=== PATIENT | female | born 1945 | race Caucasian/White ===

== ENCOUNTER 2017-01-22 19:09 | Emergency (ER) | payer MEDICARE, BC ==
[2017-01-22 19:35] VITALS: BP 166/68
--- NOTE | 2017-01-22 19:53 | EDM.PDOC ---
ED HPI GENERAL MEDICAL PROBLEM - General Chief Complaint: General Stated Complaint: CHEST PAIN Time Seen by Provider: 01/22/17 19:20 Source of Information: Reports: Patient History Limitations: Reports: No limitations - History of Present Illness INITIAL COMMENTS - FREE TEXT/NARRATIVE: According to patient she has been having chest pain for past 2 days, pain is constant and all over the chest and back. No worsening of pain with exertion. No radiation of pain to the jaws or neck. No shortness of breath with exertion. No sweating. No nausea or vomiting. Pt does have fibromyalgia and it flares up when the weather gets cold. Hurts to take deep breath. No cough, fever or chills.All her joints hurt. Pt has had stent placement 13 years ago and hence was brought in by her to have her checked. Pt appears comfortable. Onset Date: 01/20/17 Duration: Constant. No: Getting worse - Related Data Allergies Allergy/AdvReac Type Severity Reaction Status Date / Time SHENG Inhibitors Allergy Difficulty Verified 09/21/15 14:38 Breathing Latex, Natural Rubber Allergy Blisters Verified 08/23/15 10:45 Home Meds: Home Meds Gabapentin [Gabapentin] 300 mg PO TID 12/21/14 [History] Levothyroxine [Levothyroxine] 175 mcg PO DAILY 12/21/14 [History] Omeprazole [Omeprazole] 20 mg PO DAILY 12/21/14 [History] Simvastatin [Simvastatin] 40 mg PO DAILY 12/21/14 [History] fentaNYL [Fentanyl] 25 mcg TRDERM WEEKLY PRN 12/21/14 [History] Acetaminophen/HYDROcodone [[place] 325-5 MG] 1 tab PO QID PRN 01/22/17 [History] Cyclobenzaprine [Flexeril] 10 mg PO DAILY 01/22/17 [History] Diltiazem HCl [Taztia Xt] 360 mg PO DAILY 01/22/17 [History] Furosemide 20 mg PO DAILY 01/22/17 [History] Losartan [Cozaar] 50 mg PO DAILY 01/22/17 [History] Venlafaxine [Effexor XR] 75 mg PO DAILY 01/22/17 [History] Social & Family History - Tobacco Use Smoking Status *Q: Former Smoker Years of Tobacco use: 15 - Alcohol Use Days Per Week of Alcohol Use: 0 - Recreational Drug Use Recreational Drug Use: No ED ROS GENERAL - Review of Systems Review Of Systems: See Below Constitutional: Denies: fever, chills, fatigue, night sweats, diaphoresis HEENT: Denies: Ear discharge, Ear pain, Rhinitis, Throat pain Respiratory: Denies: Shortness of Breath, Pleuritic Chest Pain, Cough, Sputum Cardiovascular: Reports: Chest pain. Denies: Dyspnea on exertion, Lightheadedness Endocrine: Denies: fatigue GI/Abdominal: Denies: Abdominal pain, Nausea, Vomiting Musculoskeletal: Reports: back pain. Denies: shoulder pain, joint pain, joint swelling Skin: Denies: pruritis, rash Neurological: Denies: Confusion, Dizziness, Headache, Numbness, Paresthesia, Seizure, Tingling ED EXAM, GENERAL - Physical Exam Exam: See Below Exam Limited By: No limitations General Appearance: alert, WD/WN, no apparent distress, other (very comfortable in the exam room.) Eye Exam: bilateral eye: EOMI, PERRL Ears: normal external exam, normal canal, hearing grossly normal, normal TMs Ear Exam: bilateral ear: auricle normal, canal normal, TM normal Nose: normal inspection, normal mucosa, no blood Throat/Mouth: Normal inspection, Normal lips, Normal teeth, Normal gums, Normal oropharynx, Normal voice, No airway compromise Head: atraumatic, normocephalic Neck: normal inspection, supple, non-tender, full range of motion Respiratory/Chest: no respiratory distress, lungs clear, normal breath sounds, no accessory muscle use, other (tender all over the chest wall and upper back to palpation.) Cardiovascular: normal peripheral pulses, regular rate, rhythm, no edema, no gallop, no JVD, no murmur, no rub Peripheral Pulses: 2+: carotid (L), carotid (R), radial (R) GI/Abdominal: normal bowel sounds, soft, non tender, no organomegaly, no distention, no abnormal bruit, no mass Extremities: normal inspection, normal range of motion, non-tender, normal capillary refill, no pedal edema Neurological: alert EKG INTERPRETATION EKG Date: 01/22/17 Rate (beats/min): 62 [place]: normal P-wave: present QRS: normal ST-T: normal QT: normal Course - Vital Signs Text/Narrative:: Pt's EKG is in normal sinus rhythm. Heart rate and vitals are stable. Pt has elicitable tenderness all over the chest cage. She has flare up of her fibromyaglia. Pt appears very comfortable in the exam room.She does not have any typical signs or symptoms of acute cardiac injury. Pt and her reassured. advised to keep herself warm. return to emergency room , if she develops chest pain with exertion, or asso with sweating, shortness of breath, nausea , vomiting, epigastric pain or radiation to neck or jaw. Last Recorded V/S: Last Vital Signs Temp 98.3 F 01/22/17 19:33 Pulse 63 01/22/17 19:33 Resp 12 01/22/17 19:33 BP 166/68 H 01/22/17 19:33 Pulse Ox 100 01/22/17 19:33 - Orders/Labs/Meds Orders: Active Orders 24 hr Category Date Time Status EKG Documentation Completion [RC] ASDIRECTED Care 01/22/17 19:47 Ordered EKG 12 Lead [EK] Routine Ther 01/22/17 19:47 Ordered Departure - Departure Time of Disposition: 19:35 Disposition: Home, Self-Care 01 Condition: fair Clinical Impression: Non-cardiac chest pain Instructions: Arthritis Referrals: PCP,None [Primary Care Provider] - Forms: ED Department Discharge Additional Instructions: Take medications for Fibromyalgia as prescribed. Keep self warm. - Problem List & Annotations (1) Non-cardiac chest pain SNOMED Code(s): 607624602 Code(s): R07.89 - OTHER CHEST PAIN Status: Acute Current Visit: Yes - Problem List Review Problem List Initiated/Reviewed/Updated: Yes - My Orders Last 24 Hours: My Active Orders 01/22/17 19:47 EKG Documentation Completion [RC] ASDIRECTED EKG 12 Lead [EK] Routine - Assessment/Plan Last 24 Hours: My Active Orders 01/22/17 19:47 EKG Documentation Completion [RC] ASDIRECTED EKG 12 Lead [EK] Routine Assessment:: Non-cardiac chest pain Plan: Pt's EKG is in normal sinus rhythm. Heart rate and vitals are stable. Pt has elicitable tenderness all over the chest cage. She has flare up of her fibromyaglia. Pt appears very comfortable in the exam room.She does not have any typical signs or symptoms of acute cardiac injury. Pt and her reassured. advised to keep herself warm. return to emergency room , if she develops chest pain with exertion, or asso with sweating, shortness of breath, nausea , vomiting, epigastric pain or radiation to neck or jaw.
== END 2017-01-22 19:45 | disposition home or self-care (01) ==
LOC: LB.ED 19:09
DX: R07.89 Other chest pain (principal); Z87.891 Personal history of nicotine dependence; Z79.899 Other long term (current) drug therapy; Z91.040 Latex allergy status; Z88.8 Allergy status to other drugs, medicaments and biological substances
CPT/HCPCS: 93005; 99283

== ENCOUNTER 2017-12-15 07:00 | Observation (INO) | payer MEDICARE, BC ==
[2017-12-15] MEDS ORDERED: Ondansetron 4 MG Tab.DIS ONE (07:51)
--- NOTE | 2017-12-15 08:28 | EDM.PDOC ---
ED HPI GENERAL MEDICAL PROBLEM - General Time Seen by Provider: 12/15/17 07:45 Source of Information: Reports: Patient History Limitations: Reports: No Limitations - History of Present Illness INITIAL COMMENTS - FREE TEXT/NARRATIVE: Pt has had right knee replacement done by Dr. Maradiaga on 12/09/17 and had uneventful recover. She was discharged home.Pt preferred to do her therapy at home. Apparently patient claims that she started to have loose stools on 12/11/17 , which has persisted. Stool are yellow and watery, asso with some cramping. She has had 6-7 loose stools yesterday. Claims she has noticed some mucus in the stool, but no blood. Apparently she was eating her breakfast today and felt nauseous and vomited and felt sick and hence called ambulance. She claims that she has a catch in her right upper back. No fever or chills. No abdominal bloating. Also c/o eye pain and feels like something is bothering her in the eye. No redness, tearing or visual disturbance. Pt's who has been the caregiver, claims that it is getting hard to take care of her at home by him. Onset Date: 12/11/17 Location: Reports: Abdomen Quality: Reports: Ache Severity: Mild Associated Symptoms: Denies: Confusion, Chest Pain, Cough, Diaphoresis, Fever/ Chills, Headaches, Rash, Seizure, Shortness of Breath, Syncope - Related Data Allergies Allergy/AdvReac Type Severity Reaction Status Date / Time SHENG Inhibitors Allergy Difficulty Verified 12/15/17 08:32 Breathing atorvastatin Allergy Cannot Verified 12/15/17 08:32 Remember Latex, Natural Rubber Allergy Blisters Verified 12/15/17 08:32 Home Meds: Home Meds Gabapentin [Gabapentin] 300 mg PO TID 12/21/14 [History] Levothyroxine [Levothyroxine] 150 mcg PO DAILY 12/21/14 [History] Omeprazole [Omeprazole] 20 mg PO DAILY 12/21/14 [History] Simvastatin [Simvastatin] 40 mg PO DAILY 12/21/14 [History] fentaNYL [Fentanyl] 25 mcg TRDERM WEEKLY PRN 12/21/14 [History] Diltiazem HCl [Taztia Xt] 360 mg PO DAILY 01/22/17 [History] Losartan [Cozaar] 50 mg PO DAILY 04/26/17 [History] Venlafaxine [Effexor XR] 150 mg PO DAILY 01/22/17 [History] Acetaminophen [Tylenol] 650 mg PO Q4H PRN 12/15/17 [History] Sennosides/Docusate Sodium [Senna Plus Tablet] 1 - 2 tab PO BID 12/15/17 [ History] Warfarin [Coumadin] 5 mg PO DAILY 12/15/17 [History] hydrOXYzine HCl [hydrOXYzine] 25 - 50 mg PO Q6H PRN 12/15/17 [History] oxyCODONE 5 - 10 mg PO Q4H PRN 12/15/17 [History] traMADol HCl [Tramadol HCl] 50 - 100 mg PO Q6H PRN 12/15/17 [History] Social & Family History - Tobacco Use Smoking Status *Q: Former Smoker Years of Tobacco use: 15 - Alcohol Use Days Per Week of Alcohol Use: 0 - Recreational Drug Use Recreational Drug Use: No ED ROS GENERAL - Review of Systems Review Of Systems: See Below Constitutional: Denies: Fever, Chills, Weakness, Night Sweats, Diaphoresis, Decreased Appetite HEENT: Denies: Eye Discharge, Rhinitis, Sinus Problem, Throat Pain, Throat Swelling, Vision Change Respiratory: Denies: Shortness of Breath, Wheezing, Pleuritic Chest Pain, Cough , Sputum Cardiovascular: Denies: Chest Pain, Lightheadedness GI/Abdominal: Reports: Diarrhea, Nausea, Vomiting. Denies: Abdominal Pain, Constipation, Decreased Appetite, Distension, Flatus, Hematemesis, Hematochezia : Denies: Dysuria, Flank Pain, Frequency Musculoskeletal: Denies: Joint Pain, Joint Swelling Skin: Denies: Bruising, Pruritis, Rash Neurological: Denies: Confusion, Dizziness, Headache, Seizure, Syncope, Tingling Psychiatric: Denies: Agitation, Anxiety, Confusion ED EXAM, GENERAL - Physical Exam Exam: See Below Exam Limited By: Physical Impairment (due to recent left knee replacement) General Appearance: Alert, WD/WN, No Apparent Distress Eye Exam: Bilateral Eye: EOMI, PERRL Ears: Normal External Exam, Normal Canal, Hearing Grossly Normal, Normal TMs Ear Exam: Bilateral Ear: Auricle Normal, Canal Normal, TM normal Nose: Normal Inspection, Normal Mucosa, No Blood Throat/Mouth: Normal Inspection, Normal Lips, Normal Teeth, Normal Gums, Normal Oropharynx, Normal Voice, No Airway Compromise Head: Atraumatic, Normocephalic Neck: Normal Inspection, Supple, Non-Tender, Full Range of Motion Respiratory/Chest: No Respiratory Distress, Lungs Clear, Normal Breath Sounds, No Accessory Muscle Use, Chest Non-Tender Cardiovascular: Normal Peripheral Pulses, Regular Rate, Rhythm, No Edema, No Gallop, No JVD, No Murmur, No Rub GI/Abdominal: Normal Bowel Sounds, Soft, Non-Tender, No Organomegaly, No Distention, No Abnormal Bruit, No Mass Back Exam: Normal Inspection, Full Range of Motion, NT Extremities: No Pedal Edema, Normal Capillary Refill, Other (Left knee: there is a clean dressing over the anterior aspect of right kneee. No erythema or excessive swelling noted. minimal tenderness around the surgical site.) Course - Vital Signs Text/Narrative:: 72 year old female present with watery diarrhea, which started after recent surgical procedure and was inpatient. Her hydration appears appropriate. as she had episode of vomiting at home, she did received Zofran ODT 4mg. Pt's CBC and BMP appear normal. Her INR is 1.5 , have increased her coumadin to 7.5 mg daily for next 3 day and will repeat INR on 12/18/17. I have advised patient to give us sample of stool for C-diff. Pt is s/p left knee replacement and her cannot take care of her at home. Will have OT and PT evaluate patient. Last Recorded V/S: Last Vital Signs Temp 98 F 12/15/17 12:00 Pulse 87 12/15/17 12:00 Resp 14 12/15/17 12:00 BP 115/52 L 12/15/17 12:00 Pulse Ox 94 L 12/15/17 12:00 - Orders/Labs/Meds Orders: Active Orders 24 hr Category Date Time Status CLOSTRIDIUM DIFFICILE BY PCR [RM] Stat Lab 12/15/17 08:22 Ordered Medication Orders Acetaminophen (Tylenol Arthritis Pain) 650 mg PO TID PRN PRN Reason: ARTHRITIS Docusate Sodium (Dok) 250 mg PO BID [facility] Fentanyl (Duragesic) 25 mcg TRDERM Q72H PRN PRN Reason: Other Gabapentin (Neurontin) 300 mg PO TID [facility] Hydroxyzine HCl (Atarax) 25 mg PO Q6H PRN PRN Reason: moderate pain Levothyroxine Sodium (Levothyroxine) 150 mcg PO ACBREAKFAST [facility] Losartan Potassium (Cozaar) 50 mg PO DAILY [facility] Non-Formulary Medication (Diltiazem Hcl [Taztia Xt]) 360 mg PO DAILY [facility] Omeprazole (Omeprazole) 20 mg PO DAILY [facility] Ondansetron HCl (Zofran Odt) 4 mg PO Q8H PRN PRN Reason: Nausea Oxycodone HCl (Oxycodone) 5 mg PO Q4H PRN PRN Reason: Pain Simvastatin (Zocor) 40 mg PO BEDTIME [facility] Tramadol HCl (Ultram) 50 mg PO Q6H PRN PRN Reason: Pain Venlafaxine HCl (Effexor Xr) 150 mg PO DAILY [facility] Warfarin Sodium (Coumadin) 7.5 mg PO DAILY@1800 [facility] Stop: 12/17/17 23:59 Meds: Medications Generic Name Dose Route Start Last Admin Trade Name Freq PRN Reason Stop Dose Admin Acetaminophen 650 mg 12/15/17 14:43 Tylenol Arthritis Pain PO TID PRN ARTHRITIS Docusate Sodium 250 mg 12/15/17 20:00 Dok PO BID [facility] Fentanyl 25 mcg 12/15/17 08:38 Duragesic TRDERM Q72H PRN Other Gabapentin 300 mg 12/15/17 14:00 Neurontin PO TID [facility] Hydroxyzine HCl 25 mg 12/15/17 14:37 Atarax PO Q6H PRN moderate pain Levothyroxine Sodium 150 mcg 12/16/17 07:00 Levothyroxine PO ACBREAKFAST [facility] Losartan Potassium 50 mg 12/15/17 08:45 Cozaar PO DAILY [facility] Non-Formulary Medication 360 mg 12/15/17 08:45 Diltiazem Hcl [Taztia Xt] PO DAILY [facility] Omeprazole 20 mg 12/15/17 08:45 Omeprazole PO DAILY [facility] Ondansetron HCl 4 mg 12/15/17 08:37 Zofran Odt PO Q8H PRN Nausea Oxycodone HCl 5 mg 12/15/17 14:37 Oxycodone PO Q4H PRN Pain Simvastatin 40 mg 12/15/17 20:00 Zocor PO BEDTIME [facility] Tramadol HCl 50 mg 12/15/17 20:38 Ultram PO Q6H PRN Pain Venlafaxine HCl 150 mg 12/16/17 08:00 Effexor Xr PO DAILY [facility] Warfarin Sodium 7.5 mg 12/15/17 18:00 Coumadin PO 12/17/17 23:59 DAILY@1800 [facility] Discontinued Medications Generic Name Dose Route Start Last Admin Trade Name Freq PRN Reason Stop Dose Admin Hydroxyzine HCl 25 mg 12/15/17 08:38 Atarax PO Q6H PRN moderate pain Hydroxyzine HCl 25 - 50 mg 12/15/17 09:58 Atarax PO Q6H PRN moderate pain Ondansetron HCl Confirm 12/15/17 07:51 12/15/17 07:55 Zofran Odt Administered 12/15/17 07:52 4 mg Dose Administration 4 mg .ROUTE .STK-MED ONE Oxycodone HCl 5 - 10 mg 12/15/17 08:38 Oxycodone PO Q4H PRN Pain Oxycodone HCl 1 - 2 mg 12/15/17 14:32 Oxycodone PO Q4H PRN Pain Tramadol HCl 50 - 100 mg 12/15/17 08:38 Ultram PO Q6H PRN Pain Warfarin Sodium 5 mg 12/15/17 08:45 Coumadin PO DAILY [facility] Warfarin Sodium 2.5 - 5 mg 12/15/17 10:00 Coumadin PO ASDIRECTED [facility] Departure - Departure Time of Disposition: 08:00 Disposition: Refer to Observation Condition: Fair Clinical Impression: Gastroenteritis, S/P knee replacement - Discharge Information - Problem List & Annotations (1) Gastroenteritis SNOMED Code(s): 68483081 Code(s): K52.9 - NONINFECTIVE GASTROENTERITIS AND COLITIS, UNSPECIFIED Status: Acute Current Visit: Yes (2) S/P knee replacement SNOMED Code(s): 564792864 Code(s): Z96.659 - PRESENCE OF UNSPECIFIED ARTIFICIAL KNEE JOINT Status: Acute Current Visit: Yes - Problem List Review Problem List Initiated/Reviewed/Updated: Yes - My Orders Last 24 Hours: My Active Orders 12/15/17 08:22 CLOSTRIDIUM DIFFICILE BY PCR [RM] Stat - Assessment/Plan Last 24 Hours: My Active Orders 12/15/17 08:22 CLOSTRIDIUM DIFFICILE BY PCR [RM] Stat Assessment:: Gastroenteritis S/p left knee replacement Plan: 2 year old female present with watery diarrhea, which started after recent surgical procedure and was inpatient. Her hydration appears appropriate. as she had episode of vomiting at home, she did received Zofran ODT 4mg. Pt's CBC and BMP appear normal. Her INR is 1.5 , have increased her coumadin to 7.5 mg daily for next 3 day and will repeat INR on 12/18/17. I have advised patient to give us sample of stool for C-diff. Pt is s/p left knee replacement and her cannot take care of her at home. Will have OT and PT evaluate patient.
[2017-12-15] MEDS ORDERED: Ondansetron 4 MG Tab.DIS PO PRN (08:37)
[2017-12-15] MEDS ORDERED: hydrOXYzine HCl 25 MG Tab PO PRN ×2 (08:38→09:58)
[2017-12-15] MEDS ORDERED: fentaNYL 25 MCG/HR Transdermal Patch TRDERM PRN (08:38)
[2017-12-15] MEDS ORDERED: Acetaminophen 325 MG Tab PO PRN (08:38)
[2017-12-15] MEDS ORDERED: traMADol 50 MG Tab PO PRN (08:38)
[2017-12-15] MEDS ORDERED: oxyCODONE 5 MG Tab PO PRN ×2 (08:38→14:32)
[2017-12-15] MEDS ORDERED: Venlafaxine 75 MG Cap.ER PO SCH (08:45)
[2017-12-15] MEDS ORDERED: Warfarin 5 MG Tab PO SCH ×4 (08:45→18:00)
[2017-12-15] MEDS ORDERED: Acetaminophen 650 MG Tab.ER PO PRN (14:43)
[2017-12-15] MEDS: DILTIAZEM HCL 360 MG PO SCH (15:06)
[2017-12-15] MEDS: Losartan 50 MG Tab PO SCH (15:06)
[2017-12-15] MEDS: Omeprazole 20 MG Cap.CR PO SCH (15:07)
[2017-12-15] MEDS: Gabapentin 300 MG Cap PO SCH ×2 (15:08→19:35)
[2017-12-15] MEDS: traMADol 50 MG Tab PO PRN (15:10)
[2017-12-15] MEDS ORDERED: Warfarin 5 MG Tab ONE (17:34)
[2017-12-15] MEDS: Docusate Sodium 250 MG Cap PO SCH (19:34)
[2017-12-15] MEDS: oxyCODONE 5 MG Tab PO PRN ×2 (19:38→23:58)
[2017-12-15] MEDS: hydrOXYzine HCl 25 MG Tab PO PRN ×2 (19:39→23:59)
[2017-12-15] MEDS ORDERED: Simvastatin 40 MG Tab PO SCH (20:00)
[2017-12-16] MEDS ORDERED: Levothyroxine 150 MCG Tab PO SCH (07:00)
[2017-12-16] MEDS: Docusate Sodium 250 MG Cap PO SCH (07:56)
[2017-12-16] MEDS: DILTIAZEM HCL 360 MG PO SCH (07:56)
[2017-12-16] MEDS: Gabapentin 300 MG Cap PO SCH (07:56)
[2017-12-16] MEDS: Omeprazole 20 MG Cap.CR PO SCH (07:57)
[2017-12-16] MEDS: hydrOXYzine HCl 25 MG Tab PO PRN (07:57)
[2017-12-16] MEDS: traMADol 50 MG Tab PO PRN (07:58)
[2017-12-16] MEDS ORDERED: Simvastatin 40 MG Tab PO SCH (08:00)
[2017-12-16] MEDS ORDERED: Venlafaxine 150 MG Cap.ER PO SCH (08:00)
[2017-12-16 08:05] VITALS: BP 118/56
[2017-12-16] MEDS: Losartan 50 MG Tab PO SCH (08:05)
--- NOTE | 2017-12-16 10:01 | PCM.DCSUM1 ---
Discharge Summary - Hospital Course Free Text/Narrative:: Pt was admitted with diagnosis of gastroenteritis with possible hospital induced colitis. Her CBC and BMP were normal. Her electrolytes were stable. She was admitted to monitor her closely as she just has had left knee replacement and needs help with using the restroom frequently. Apparently patient has not had any bowel movements or diarrhea since admission. She has been feeding well and has not had any episodes of nausea or vomiting. Today, 12/16/17, she claims she feels fine, no abdominal cramping or discomfort. feeding well. Able to ambulate and weight bearing well on the left lower extremity. It does not appear like she has C-diff colitis, as she has not had anymore loose stools. Hence plan is to discharge patient back home. Pt does agree with the plan. Brief History: Pt was brought in by ambulance with c/o severe diarrhea and vomiting. Pt was admitted to control symptoms and further workup of her diarrhea. Kindly see H&P for details. - Discharge Data Discharge Date: 12/16/17 Discharge Disposition: Home, Self-Care 01 Condition: Good - Discharge Diagnosis/Problem(s) (1) Gastroenteritis SNOMED Code(s): 04694619 ICD Code: K52.9 - NONINFECTIVE GASTROENTERITIS AND COLITIS, UNSPECIFIED Status: Acute Current Visit: Yes (2) S/P knee replacement SNOMED Code(s): 391964316 ICD Code: Z96.659 - PRESENCE OF UNSPECIFIED ARTIFICIAL KNEE JOINT Status: Acute Current Visit: Yes - Patient Instructions Diet: Regular Diet as Tolerated Fluid Restriction: 1500 mL Activity: As Tolerated, Elevate Extremity, No Strenuous Activities Showering/Bathing: May Shower Notify Provider of: Fever, Nausea and/or Vomiting - Discharge Plan Home Medications: Home Meds Gabapentin 300 mg PO TID 12/21/14 [History] Levothyroxine 150 mcg PO DAILY 12/21/14 [History] Omeprazole 20 mg PO DAILY 12/21/14 [History] Simvastatin 40 mg PO DAILY 12/21/14 [History] fentaNYL [Fentanyl] 25 mcg TRDERM WEEKLY PRN 12/21/14 [History] Diltiazem HCl [Taztia Xt] 360 mg PO DAILY 01/22/17 [History] Losartan [Cozaar] 50 mg PO DAILY 01/22/17 [History] Venlafaxine [Effexor XR] 150 mg PO DAILY 01/22/17 [History] Acetaminophen [Tylenol] 650 mg PO Q4H PRN 12/15/17 [History] Sennosides/Docusate Sodium [Senna Plus Tablet] 1 - 2 tab PO BID 12/15/17 [ History] Warfarin [Coumadin] 5 mg PO DAILY 12/15/17 [History] hydrOXYzine HCl [hydrOXYzine] 25 - 50 mg PO Q6H PRN 12/15/17 [History] oxyCODONE 5 - 10 mg PO Q4H PRN 12/15/17 [History] traMADol HCl [Tramadol HCl] 50 - 100 mg PO Q6H PRN 12/15/17 [History] Acetaminophen [Tylenol Arthritis Pain] 650 mg PO TID PRN tab.er 12/16/17 [Rx] Docusate Sodium [DOK] 250 mg PO BID cap 12/16/17 [Rx] Levothyroxine 150 mcg PO ACBREAKFAST tablet 12/16/17 [Rx] Venlafaxine [Effexor XR] 150 mg PO DAILY cap.er 12/16/17 [Rx] Referrals: PCP,None [Primary Care Provider] - - Discharge Summary/Plan Comment DC Time >30 min.: Yes Discharge Summary/Plan Comment: Continue home exercise Coumadin 5mg daily and have INR checked at Coumadin clinic on 12/18/17 Followup with Orthopedics clinic on 12/23/17 - General Info Date of Service: 12/16/17 Functional Status: Reports: Tolerating Diet, Ambulating, Urinating. Denies: New Symptoms - Review of Systems General: Denies: Fever, Weakness, Fatigue HEENT: Denies: Headaches, Sinus Congestion Pulmonary: Denies: Shortness of Breath, Pleuritic Chest Pain, Cough, Sputum Cardiovascular: Denies: Chest Pain, Lightheadedness Gastrointestinal: Reports: Flatus. Denies: Abdominal Pain, Diarrhea, Hematochezia, Melena, Nausea, Vomiting Genitourinary: Denies: Dysuria, Frequency Musculoskeletal: Denies: Joint Pain, Joint Swelling Skin: Denies: Pruritis, Rash Neurological: Denies: Seizure, Syncope - Patient Data Vitals - Most Recent: Last Vital Signs Temp 97.8 F 12/16/17 00:00 Pulse 52 L 12/16/17 00:00 Resp 16 12/16/17 04:00 BP 118/56 L 12/16/17 08:05 Pulse Ox 96 12/16/17 00:00 Weight - Most Recent: 104.043 kg I&O - Last 24 hours: Intake & Output 12/15/17 12/16/17 12/16/17 22:59 06:59 14:59 Intake Total 475 500 Output Total 550 250 Balance -75 250 Lab Results - Last 24 hrs: Laboratory Results - last 24 hr 12/15/17 12/15/17 12/15/17 Range/Units 09:00 09:00 09:10 WBC 9.3 D (4.0-11.0) K/uL RBC 3.83 (3.80-5.80) M/uL Hgb 9.8 L (11.5-16.5) g/dL Hct 31.7 L (37.0-47.0) % MCV 83 (76-96) fL MCH 25.6 L (27.0-32.0) pg MCHC 30.9 L (31.0-35.0) g/dL RDW 13.7 (11.0-16.0) % Plt Count 306 (150-500) K/uL MPV 9.2 (6.0-10.0) fL Neut % (Auto) 73.9 H (45.0-70.0) % Lymph % (Auto) 15.9 L (20.0-40.0) % [place] % (Auto) 7.0 (3.0-10.0) % Eos % (Auto) 2.9 (1.0-5.0) % Baso % (Auto) 0.3 (0.0-0.5) % Neut # (Auto) 6.83 (2.00-7.50) K/uL Lymph # (Auto) 1.47 L (1.50-4.00) K/uL [place] # (Auto) 0.65 (0.20-0.80) K/uL Eos # (Auto) 0.27 (0.04-0.40) K/uL Baso # (Auto) 0.03 (0.02-0.10) K/uL PT 14.6 H (9.0-11.5) sec INR 1.5 (1.0-3.5) Sodium 142 (136-145) mmol/L Potassium 4.0 (3.5-5.1) mmol/L Chloride 105 (98-107) mmol/L Carbon Dioxide 28.6 (21.0-32.0) mmol/L Anion Gap 12.4 (5.0-15.0) mmol/L BUN 16 D (8-26) mg/dL Creatinine 1.24 H (0.55-1.02) mg/dL Est Cr Clr Drug Dosing TNP Estimated GFR (MDRD) 42 L (>60) MLS/MIN BUN/Creatinine Ratio 12.9 (6-25) Glucose 109 H (74-100) mg/dL Calcium 9.0 (8.5-10.1) mg/dL Med Orders - Current: Current Medications Acetaminophen (Tylenol Arthritis Pain) 650 mg PO TID PRN PRN Reason: ARTHRITIS Last Admin: 12/15/17 19:36 Dose: 650 mg Docusate Sodium (Dok) 250 mg PO BID [facility] Last Admin: 12/16/17 07:56 Dose: 250 mg Fentanyl (Duragesic) 25 mcg TRDERM Q72H PRN PRN Reason: Other Gabapentin (Neurontin) 300 mg PO TID [facility] Last Admin: 12/16/17 07:56 Dose: 300 mg Hydroxyzine HCl (Atarax) 25 mg PO Q6H PRN PRN Reason: moderate pain Last Admin: 12/16/17 07:57 Dose: 25 mg Levothyroxine Sodium (Levothyroxine) 150 mcg PO ACBREAKFAST [facility] Last Admin: 12/16/17 07:54 Dose: 150 mcg Losartan Potassium (Cozaar) 50 mg PO DAILY [facility] Last Admin: 12/16/17 08:05 Dose: 50 mg Non-Formulary Medication (Diltiazem Hcl [Taztia Xt]) 360 mg PO DAILY [facility] Last Admin: 12/16/17 07:56 Dose: 360 mg Omeprazole (Omeprazole) 20 mg PO DAILY [facility] Last Admin: 12/16/17 07:57 Dose: 20 mg Ondansetron HCl (Zofran Odt) 4 mg PO Q8H PRN PRN Reason: Nausea Oxycodone HCl (Oxycodone) 5 mg PO Q4H PRN PRN Reason: Pain Last Admin: 12/15/17 23:58 Dose: 5 mg Simvastatin (Zocor) 40 mg PO BEDTIME [facility] Last Admin: 12/15/17 19:35 Dose: 40 mg Tramadol HCl (Ultram) 50 mg PO Q6H PRN PRN Reason: Pain Last Admin: 12/16/17 07:58 Dose: 50 mg Venlafaxine HCl (Effexor Xr) 150 mg PO DAILY [facility] Last Admin: 12/16/17 07:56 Dose: 150 mg Warfarin Sodium (Coumadin) 7.5 mg PO DAILY@1800 [facility] Stop: 12/17/17 23:59 Last Admin: 12/15/17 17:36 Dose: 5 mg Discontinued Medications Hydroxyzine HCl (Atarax) 25 mg PO Q6H PRN PRN Reason: moderate pain Hydroxyzine HCl (Atarax) 25 - 50 mg PO Q6H PRN PRN Reason: moderate pain Ondansetron HCl (Zofran Odt) Confirm Administered Dose 4 mg .ROUTE .STK-MED ONE Stop: 12/15/17 07:52 Last Admin: 12/15/17 07:55 Dose: 4 mg Oxycodone HCl (Oxycodone) 5 - 10 mg PO Q4H PRN PRN Reason: Pain Oxycodone HCl (Oxycodone) 1 - 2 mg PO Q4H PRN PRN Reason: Pain Tramadol HCl (Ultram) 50 - 100 mg PO Q6H PRN PRN Reason: Pain Warfarin Sodium (Coumadin) 5 mg PO DAILY [facility] Warfarin Sodium (Coumadin) 2.5 - 5 mg PO ASDIRECTED [facility] Warfarin Sodium (Coumadin) Confirm Administered Dose 5 mg .ROUTE .STK-MED ONE Stop: 12/15/17 17:35 Last Admin: 12/15/17 17:35 Dose: Not Given - Exam General: Reports: Alert, Oriented HEENT: Reports: Pupils Equal, Pupils Reactive, EOMI, Mucous Membr. Moist/Otho Neck: Reports: Supple Lungs: Reports: Clear to Auscultation, Normal Respiratory Effort Cardiovascular: Reports: Regular Rate, Regular Rhythm GI/Abdominal Exam: Normal Bowel Sounds, Soft, Non-Tender, No Organomegaly, No Distention, No Abnormal Bruit, No Mass, Pelvis Stable Back Exam: Reports: Normal Inspection, Full Range of Motion Extremities: Non-Tender, Other (Left knee: there is clean dressing over the surgical site. No erythema or warmth felt.) Skin: Reports: Warm, Intact *Q Meaningful Use (DIS) - VTE *Q VTE Criteria *Q: - Stroke *Q Stroke Criteria *Q: - AMI *Q AMI Criteria *Q:
== END 2017-12-16 11:25 | disposition home or self-care (01) ==
LOC: LB.ED 07:00 → LB.MS 08:33
PROVIDERS: ADMIT Family Medicine; ATTEND Family Medicine
DX: K52.9 Noninfective gastroenteritis and colitis, unspecified (principal); Z96.659 Presence of unspecified artificial knee joint; Z79.01 Long term (current) use of anticoagulants; Z79.899 Other long term (current) drug therapy; Z88.8 Allergy status to other drugs, medicaments and biological substances; Z91.040 Latex allergy status; Z87.891 Personal history of nicotine dependence
CPT/HCPCS: 36415; 80048; 85025; 85610; 97110-GP; 97161-GP; 97165-GO; 97535-GO; 99217; 99220; 99284; A0425; A0429; A9270-GY

== ENCOUNTER 2021-08-18 12:23 | Emergency (ER) | payer MEDICARE, BC ==
[2021-08-18 12:31] VITALS: BP 179/83; PULSE 92
[2021-08-18] MEDS: Sodium Chloride 0.9% 1,000 ML IV ONE (13:20)
[2021-08-18] MEDS: Sodium Chloride 0.9% 500 ML IV ONE (14:00)
--- NOTE | 2021-08-18 15:55 | EDM.PDOC ---
ED HPI GENERAL MEDICAL PROBLEM - General Chief Complaint: Gastrointestinal Problem Stated Complaint: stomach discomfort Time Seen by Provider: 08/18/21 12:40 - History of Present Illness INITIAL COMMENTS - FREE TEXT/NARRATIVE: Pt is here with C/O not feeling good for 3 weeks. She started out with cold symptoms, now just feels fatigued. She has some heartburn at times. No coughing, nausea, SOB, vomiting or diarrhea. She has had no appetite. Her recently had Covid. She has been vaccinated and has had a booster for Covid. - Related Data Allergies Allergy/AdvReac Type Severity Reaction Status Date / Time SHENG Inhibitors Allergy Difficulty Verified 08/18/21 12:35 Breathing atorvastatin Allergy Cannot Verified 08/18/21 12:35 Remember Latex, Natural Rubber Allergy Blisters Verified 08/18/21 12:35 Home Meds: Home Meds Gabapentin 300 mg PO TID 12/21/14 [History] Omeprazole 20 mg PO DAILY 12/21/14 [History] Simvastatin 40 mg PO DAILY 12/21/14 [History] fentaNYL [Fentanyl] 25 mcg TRDERM WEEKLY PRN 12/21/14 [History] Losartan [Cozaar] 50 mg PO DAILY 01/22/17 [History] dilTIAZem HCL [Taztia Xt] 360 mg PO DAILY 01/22/17 [History] Sennosides/Docusate Sodium [Senna Plus Tablet] 1 - 2 tab PO BID 12/15/17 [History] Acetaminophen [Tylenol Arthritis Pain] 650 mg PO TID PRN tab.er 12/16/17 [Rx] Docusate Sodium [DOK] 250 mg PO BID cap 12/16/17 [Rx] Levothyroxine 150 mcg PO ACBREAKFAST tablet 12/16/17 [Rx] Venlafaxine [Effexor XR] 150 mg PO DAILY cap.er 12/16/17 [Rx] Past Medical History HEENT History: Reports: Impaired Vision Cardiovascular History: Reports: High Cholesterol, Hypertension Psychiatric History: Reports: Depression Hematologic History: Reports: Anemia - Infectious Disease History Infectious Disease History: Reports: Measles, Mumps, Rubella - Past Surgical History Musculoskeletal Surgical History: Reports: Knee Replacement Social & Family History - Family History Family Medical History: No Pertinent Family History - Tobacco Use Tobacco Use Status *Q: Former Tobacco User Used Tobacco, but Quit: Yes Month/Year Tobacco Last Used: 1972 Second Hand Smoke Exposure: No - Caffeine Use Caffeine Use: Reports: Soda - Recreational Drug Use Recreational Drug Use: No ED ROS GENERAL - Review of Systems Review Of Systems: Comprehensive ROS is negative, except as noted in HPI. Constitutional: Reports: Weakness, Fatigue, Decreased Appetite ED EXAM, GENERAL - Physical Exam Exam: See Below General Appearance: Other (She is lying quietly on the exam table.) Throat/Mouth: Other (mucous membranes are dry.) Course - Vital Signs Last Recorded V/S: Last Vital Signs Temp 99.3 F 08/18/21 12:23 Pulse 92 08/18/21 12:23 Resp 14 08/18/21 12:23 BP 179/83 H 08/18/21 12:23 Pulse Ox 92 L 08/18/21 12:23 - Orders/Labs/Meds Orders: Active Orders 24 hr Category Date Time Status Chest 1V Frontal [CR] Stat Exams 08/18/21 12:45 Taken UA W/MICROSCOPIC [URIN] Stat Lab 08/18/21 12:51 Ordered Isolation [COMM] Routine Oth 08/18/21 12:45 Active Labs: Laboratory Tests 08/18/21 08/18/21 08/18/21 Range/Units 12:51 13:20 13:20 WBC 3.0 L D (4.0-11.0) K/uL RBC 3.18 L (3.80-5.80) M/uL Hgb 8.9 L (11.5-16.5) g/dL Hct 29.5 L (37.0-47.0) % MCV 93 (76-96) fL MCH 28.0 (27.0-32.0) pg MCHC 30.2 L (31.0-35.0) g/dL RDW 12.9 (11.0-16.0) % Plt Count 232 (150-500) K/uL MPV 10.8 H (6.0-10.0) fL Neut % (Auto) 65.9 (45.0-70.0) % Lymph % (Auto) 20.5 (20.0-40.0) % [place] % (Auto) 13.6 H (3.0-10.0) % Eos % (Auto) 0.0 L (1.0-5.0) % Baso % (Auto) 0.0 (0.0-0.5) % Neut # (Auto) 1.99 L (2.00-7.50) K/uL Lymph # (Auto) 0.62 L (1.50-4.00) K/uL [place] # (Auto) 0.41 (0.20-0.80) K/uL Eos # (Auto) 0.00 L (0.04-0.40) K/uL Baso # (Auto) 0.00 L (0.02-0.10) K/uL Sodium 145 (136-145) mmol/L Potassium 4.7 (3.5-5.1) mmol/L Chloride 107 (98-107) mmol/L Carbon Dioxide 27.9 (21.0-32.0) mmol/L Anion Gap 14.8 (5.0-15.0) mmol/L BUN 15 D (8-26) mg/dL Creatinine 1.87 H D (0.55-1.02) mg/dL Est Cr Clr Drug Dosing 19.61 mL/min Estimated GFR (MDRD) 26 L (>60) MLS/MIN BUN/Creatinine Ratio 8.0 (6-25) Glucose 109 H (74-100) mg/dL Calcium 9.0 (8.5-10.1) mg/dL Total Bilirubin 0.5 D (0.0-1.0) mg/dL AST 23 (15-37) U/L ALT 14 (12-78) U/L Alkaline Phosphatase 95 (46-116) U/L B-Natriuretic Peptide (0-450) pg/mL Total Protein 6.9 (6.4-8.2) g/dL Albumin 3.0 L (3.4-5.0) g/dL Globulin 3.9 (2.2-4.2) g/dL Albumin/Globulin Ratio 0.8 (0.8-2.0) Urine Color Yellow Urine Appearance Clear (CLEAR) Urine pH 6.5 (5.0-8.0) Ur Specific [place] 1.025 (1.003-1.030) Urine Protein 30 H (NEGATIVE) mg/dL Urine Glucose (UA) Negative (NEGATIVE) mg/dL Urine Ketones Negative (NEGATIVE) mg/dL Urine Occult Blood Trace-intact H (NEGATIVE) Urine Nitrite Negative (NEGATIVE) Urine Bilirubin Negative (NEGATIVE) Urine Urobilinogen 0.2 (0.2-1.0) E.U./dL Ur Leukocyte Esterase Negative (NEGATIVE) Urine RBC 5-10 H /HPF Urine WBC Not seen /HPF Ur Epithelial Cells Few /HPF Urine Bacteria Few /HPF SARS CoV-2 RNA Rapid ARTHUR 08/18/21 08/18/21 Range/Units 13:20 13:40 WBC (4.0-11.0) K/uL RBC (3.80-5.80) M/uL Hgb (11.5-16.5) g/dL Hct (37.0-47.0) % MCV (76-96) fL MCH (27.0-32.0) pg MCHC (31.0-35.0) g/dL RDW (11.0-16.0) % Plt Count (150-500) K/uL MPV (6.0-10.0) fL Neut % (Auto) (45.0-70.0) % Lymph % (Auto) (20.0-40.0) % [place] % (Auto) (3.0-10.0) % Eos % (Auto) (1.0-5.0) % Baso % (Auto) (0.0-0.5) % Neut # (Auto) (2.00-7.50) K/uL Lymph # (Auto) (1.50-4.00) K/uL [place] # (Auto) (0.20-0.80) K/uL Eos # (Auto) (0.04-0.40) K/uL Baso # (Auto) (0.02-0.10) K/uL Sodium (136-145) mmol/L Potassium (3.5-5.1) mmol/L Chloride (98-107) mmol/L Carbon Dioxide (21.0-32.0) mmol/L Anion Gap (5.0-15.0) mmol/L BUN (8-26) mg/dL Creatinine (0.55-1.02) mg/dL Est Cr Clr Drug Dosing mL/min Estimated GFR (MDRD) (>60) MLS/MIN BUN/Creatinine Ratio (6-25) Glucose (74-100) mg/dL Calcium (8.5-10.1) mg/dL Total Bilirubin (0.0-1.0) mg/dL AST (15-37) U/L ALT (12-78) U/L Alkaline Phosphatase (46-116) U/L B-Natriuretic Peptide 1416 H D (0-450) pg/mL Total Protein (6.4-8.2) g/dL Albumin (3.4-5.0) g/dL Globulin (2.2-4.2) g/dL Albumin/Globulin Ratio (0.8-2.0) Urine Color Urine Appearance (CLEAR) Urine pH (5.0-8.0) Ur Specific [place] (1.003-1.030) Urine Protein (NEGATIVE) mg/dL Urine Glucose (UA) (NEGATIVE) mg/dL Urine Ketones (NEGATIVE) mg/dL Urine Occult Blood (NEGATIVE) Urine Nitrite (NEGATIVE) Urine Bilirubin (NEGATIVE) Urine Urobilinogen (0.2-1.0) E.U./dL Ur Leukocyte Esterase (NEGATIVE) Urine RBC /HPF Urine WBC /HPF Ur Epithelial Cells /HPF Urine Bacteria /HPF SARS CoV-2 RNA Rapid ARTHUR Positive H Meds: Medications Discontinued Medications Generic Name Dose Route Start Last Admin Trade Name Freq PRN Reason Stop Dose Admin Sodium Chloride 1,000 mls @ 500 mls/hr 08/18/21 12:45 08/18/21 14:00 Normal Saline IV 08/18/21 14:44 500 mls/hr .BOLUS ONE Infusion Sodium Chloride 500 mls @ 500 mls/hr 08/18/21 14:00 08/18/21 14:00 Normal Saline IV 08/18/21 14:59 500 mls/hr .BOLUS ONE Administration Non-Formulary Medication 600 110 mls @ 310 mls/hr 08/18/21 14:32 08/18/21 15:00 mg/ Non-Formulary Medication IV 08/18/21 14:53 310 mls/hr 600 mg/ Sodium Chloride ASDIRECTED STA Administration - Radiology Interpretation Free Text/Narrative:: x-ray shows a small infiltrate in the Rt lower lung. - Re-Assessments/Exams Free Text/Narrative Re-Assessment/Exam: 08/18/21 15:53 Lab results are Covid positive. Other labs are ok. She will be given Regeneron, and 1 liter of N.S. Her V.S. are ok. She is not coughing or SOB. She will be discharged home. Rest - Use Tylenol as needed - increase fluids with small frequent drinks. Monitor for any worsening symptoms. Call with any questions, or come back as needed. Departure - Departure Time of Disposition: 15:40 Disposition: Home, Self-Care 01 Condition: Good Clinical Impression: COVID-19 - Discharge Information *PRESCRIPTION DRUG MONITORING PROGRAM REVIEWED*: No *COPY OF PRESCRIPTION DRUG MONITORING REPORT IN PATIENT BELINDA: No Instructions: 10 Things You Can Do to Manage Your COVID-19 Symptoms at Home - [facility] (04/13/2021) Referrals: PCP,None [Primary Care Provider] - Forms: ED Department Discharge Additional Instructions: Drink plenty of fluids. Pedialyte is good for electrolytes. Get plenty of rest and stay away from anyone for the next week Return to the ER if symptoms worsen or you can't breath. Sepsis Event Note (ED) - Evaluation Sepsis Screening Result: No Definite Risk - Focused Exam Vital Signs: Vital Signs Temp Pulse Resp BP Pulse Ox 08/18/21 12:23 99.3 F 92 14 179/83 H 92 L - My Orders Last 24 Hours: My Active Orders 08/18/21 12:45 Chest 1V Frontal [CR] Stat Isolation [COMM] Routine 08/18/21 12:51 UA W/MICROSCOPIC [URIN] Stat - Assessment/Plan Last 24 Hours: My Active Orders 08/18/21 12:45 Chest 1V Frontal [CR] Stat Isolation [COMM] Routine 08/18/21 12:51 UA W/MICROSCOPIC [URIN] Stat
--- NOTE | 2021-08-19 15:00 | CR ---
DATE OF SERVICE: 08/18/21 CLINICAL DATA: fatigue. AP CHEST: Comparison is made to a prior exam dated 08/23/2015. The heart size is normal. The pulmonary vasculature appears more prominent on today's exam suggesting pulmonary venous congestion or fluid overload. There is a calcified granuloma in the left lung base laterally. The lungs are otherwise clear. No pneumothorax. No pleural effusions. [id number] MTDD
== END 2021-08-18 15:48 | disposition home or self-care (01) ==
LOC: LB.ED 12:23
DX: U07.1 COVID-19 (principal); E78.00 Pure hypercholesterolemia, unspecified; I10 Essential (primary) hypertension; Z79.899 Other long term (current) drug therapy; Z87.891 Personal history of nicotine dependence; Z91.040 Latex allergy status; Z88.8 Allergy status to other drugs, medicaments and biological substances; Z20.822 Contact with and (suspected) exposure to COVID-19
CPT/HCPCS: 36415; 71045; 80053; 81001; 83880; 85025; 87804; 87804-59; 99283; 99283-25; J7030; J7040; M0243; Q0243; U0002

== ENCOUNTER 2021-09-23 09:28 | Inpatient (IN) | payer MEDICARE, BC ==
[2021-09-23] MEDS ORDERED: Sodium Chloride 0.9% 10 ML Syringe FLUSH PRN (10:02)
[2021-09-23] MEDS ORDERED: Ondansetron 4 MG/2 ML SDV IVPUSH PRN (10:02)
[2021-09-23] MEDS ORDERED: Sodium Chloride 0.9% 1,000 ML IV SCH (10:15)
[2021-09-23] MEDS ORDERED: HYDROmorphone 2 MG/ML SDV ONE (10:36)
[2021-09-23] MEDS ORDERED: HYDROmorphone 2 MG/ML SDV IVPUSH ONE (10:46)
[2021-09-23] MEDS ORDERED: Ondansetron 4 MG/2 ML SDV IVPUSH ONE (10:47)
[2021-09-23] MEDS ORDERED: Ondansetron 4 MG/2 ML SDV ONE (10:50)
[2021-09-23] MEDS ORDERED: Acetaminophen 325 MG Tab PO PRN (14:44)
[2021-09-23] MEDS ORDERED: Morphine 2 MG/ML SYRINGE IVPUSH PRN (14:44)
--- NOTE | 2021-09-23 14:54 | EDM.PDOC ---
ED HPI GENERAL MEDICAL PROBLEM - General Chief Complaint: Abdominal Pain Stated Complaint: ABD PAIN Time Seen by Provider: 09/23/21 10:00 Source of Information: Reports: Patient, EMS, EMS Notes Reviewed, RN Notes Reviewed History Limitations: Reports: No Limitations - History of Present Illness INITIAL COMMENTS - FREE TEXT/NARRATIVE: This patient presents to the emergency department for evaluation of EMS. She arrives via EMS because she was unable to get up from her bed today. She states she has had abdominal pain for the last 24 hours and has been using Dramamine every 2 hours at home for this. She also add that she has not felt well since last Friday which is about 6 days. She denies headache, nausea, vomiting with the exception of some dry heaving last night. She has not had any diarrhea. She denies any bleeding. She denies any falls. She denies chest pain. - Related Data Allergies Allergy/AdvReac Type Severity Reaction Status Date / Time SHENG Inhibitors Allergy Difficulty Verified 09/23/21 13:54 Breathing atorvastatin Allergy Cannot Verified 09/23/21 13:54 Remember Latex, Natural Rubber Allergy Blisters Verified 09/23/21 13:54 Home Meds: Home Meds Gabapentin 300 mg PO TID 12/21/14 [History] Omeprazole 20 mg PO DAILY 12/21/14 [History] Simvastatin 40 mg PO DAILY 12/21/14 [History] fentaNYL [Fentanyl] 25 mcg TRDERM WEEKLY PRN 12/21/14 [History] Losartan [Cozaar] 50 mg PO BEDTIME 01/22/17 [History] dilTIAZem HCL [Taztia Xt] 360 mg PO DAILY 01/22/17 [History] Sennosides/Docusate Sodium [Senna Plus Tablet] 1 - 2 tab PO BID 12/15/17 [History] Acetaminophen [Tylenol Arthritis Pain] 650 mg PO TID PRN tab.er 12/16/17 [Rx] Docusate Sodium [DOK] 250 mg PO BID cap 12/16/17 [Rx] Venlafaxine [Effexor XR] 150 mg PO DAILY cap.er 12/16/17 [Rx] Levothyroxine [Synthroid] 88 mcg PO ACBREAKFAST 09/23/21 [History] Levothyroxine [Synthroid] 100 mcg PO ACBREAKFAST 09/23/21 [History] Venlafaxine HCl [Venlafaxine ER] 75 mg PO DAILY 09/23/21 [History] Past Medical History HEENT History: Reports: Impaired Vision Cardiovascular History: Reports: High Cholesterol, Hypertension Psychiatric History: Reports: Depression Hematologic History: Reports: Anemia - Infectious Disease History Infectious Disease History: Reports: Measles, Mumps, Rubella - Past Surgical History Musculoskeletal Surgical History: Reports: Knee Replacement Social & Family History - Family History Family Medical History: No Pertinent Family History - Caffeine Use Caffeine Use: Reports: Soda ED ROS GENERAL - Review of Systems Review Of Systems: Comprehensive ROS is negative, except as noted in HPI. ED EXAM, GENERAL - Physical Exam Exam: See Below Exam Limited By: No Limitations General Appearance: Alert, No Apparent Distress, Obese, Other (Pale) Eye Exam: Bilateral Eye: EOMI, PERRL Ears: Normal External Exam Nose: Normal Inspection Head: Atraumatic, Normocephalic Neck: Normal Inspection, Supple, Non-Tender, Full Range of Motion Respiratory/Chest: No Respiratory Distress, Lungs Clear, Normal Breath Sounds, No Accessory Muscle Use, Chest Non-Tender Cardiovascular: Normal Peripheral Pulses, Regular Rate, Rhythm GI/Abdominal: Soft, Non-Tender, No Distention, Abnormal Bowel Sounds (Decreased in all quads) Back Exam: Normal Inspection Extremities: Normal Inspection Neurological: Alert, Oriented, Normal Cognition Psychiatric: Normal Affect Skin Exam: Warm, Dry, Intact Course - Vital Signs Last Recorded V/S: Last Vital Signs Temp 36.8 C 09/23/21 13:45 Pulse 70 09/23/21 13:45 Resp 20 09/23/21 13:45 BP 139/52 L 09/23/21 13:45 Pulse Ox - Orders/Labs/Meds Orders: Active Orders 24 hr Category Date Time Status Patient Status Manage Transfer [TRANSFER] Routine ADT 09/23/21 11:30 Active Chest Abdomen Pelvis wo Cont [CT] Stat Exams 09/23/21 10:03 Stop Req RED BLOOD CELLS LP [BBK] Stat Lab 09/23/21 10:59 Results TYPE AND SCREEN [BBK] Stat Lab 09/23/21 10:59 Results UA RFX TEMO AND CULT IF INDIC [URIN] Stat Lab 09/23/21 10:02 Ordered Ondansetron [Zofran] Med 09/23/21 10:02 Active 4 mg IVPUSH Q4H PRN Sodium Chloride 0.9% [Saline Flush] Med 09/23/21 10:02 Active 10 ml FLUSH ASDIRECTED PRN Saline Lock Insert [OM.PC] Routine Oth 09/23/21 10:01 Ordered Transfuse Red Blood Cells [COMM] Stat Oth 09/23/21 11:04 Ordered Medication Orders Acetaminophen (Acetaminophen 325 Mg Tab) 650 mg PO Q4H PRN PRN Reason: Pain (Mild 1-3)/fever Morphine Sulfate (Morphine 2 Mg/Ml Syringe) 2 mg IVPUSH Q2H PRN PRN Reason: Pain (severe 7-10) Ondansetron HCl (Ondansetron 4 Mg/2 Ml Sdv) 4 mg IVPUSH Q4H PRN PRN Reason: Nausea/Vomiting Sodium Chloride (Sodium Chloride 0.9% 10 Ml Syringe) 10 ml FLUSH ASDIRECTED PRN PRN Reason: Keep Vein Open Labs: Laboratory Tests 09/23/21 09/23/21 09/23/21 Range/Units 10:59 10:59 10:59 WBC 18.8 H D (4.0-11.0) K/uL RBC 1.75 L (3.80-5.80) M/uL Hgb 3.9 L* D (11.5-16.5) g/dL Hct 13.8 L* D (37.0-47.0) % MCV 79 (76-96) fL MCH 22.3 L D (27.0-32.0) pg MCHC 28.3 L (31.0-35.0) g/dL RDW 18.5 H (11.0-16.0) % Plt Count 223 (150-500) K/uL MPV 12.0 H (6.0-10.0) fL Neut % (Auto) 84.8 H (45.0-70.0) % Lymph % (Auto) 4.3 L (20.0-40.0) % [place] % (Auto) 10.5 H (3.0-10.0) % Eos % (Auto) 0.2 L (1.0-5.0) % Baso % (Auto) 0.2 (0.0-0.5) % Neut # (Auto) 15.97 H (2.00-7.50) K/uL Lymph # (Auto) 0.80 L (1.50-4.00) K/uL [place] # (Auto) 1.97 H (0.20-0.80) K/uL Eos # (Auto) 0.04 (0.04-0.40) K/uL Baso # (Auto) 0.03 (0.02-0.10) K/uL Sodium 137 (136-145) mmol/L Potassium 5.7 H D (3.5-5.1) mmol/L Chloride 106 (98-107) mmol/L Carbon Dioxide 17.4 L D (21.0-32.0) mmol/L Anion Gap 19.3 H (5.0-15.0) mmol/L BUN 57 H* D (8-26) mg/dL Creatinine 3.54 H* D (0.55-1.02) mg/dL Est Cr Clr Drug Dosing TNP Estimated GFR (MDRD) 12 L (>60) MLS/MIN BUN/Creatinine Ratio 16.1 (6-25) Glucose 93 (74-100) mg/dL Calcium 8.9 (8.5-10.1) mg/dL Blood Type A POSITIVE Gel Antibody Screen Negative Crossmatch See Detail Meds: Medications Generic Name Dose Route Start Last Admin Trade Name Freq PRN Reason Stop Dose Admin Acetaminophen 650 mg 09/23/21 14:44 Acetaminophen 325 Mg Tab PO Q4H PRN Pain (Mild 1-3)/fever Morphine Sulfate 2 mg 09/23/21 14:44 Morphine 2 Mg/Ml Syringe IVPUSH Q2H PRN Pain (severe 7-10) Ondansetron HCl 4 mg 09/23/21 10:02 Ondansetron 4 Mg/2 Ml Sdv IVPUSH Q4H PRN Nausea/Vomiting Sodium Chloride 10 ml 09/23/21 10:02 Sodium Chloride 0.9% 10 Ml Syringe FLUSH ASDIRECTED PRN Keep Vein Open Discontinued Medications Generic Name Dose Route Start Last Admin Trade Name Freq PRN Reason Stop Dose Admin Hydromorphone HCl Confirm 09/23/21 10:36 09/23/21 12:05 Hydromorphone 2 Mg/Ml Sdv Administered 09/23/21 10:37 Not Given Dose 2 mg .ROUTE .STK-MED ONE Hydromorphone HCl 1 mg 09/23/21 10:46 09/23/21 10:35 Hydromorphone 2 Mg/Ml Sdv IVPUSH 09/23/21 10:47 1 mg ONETIME ONE Administration Sodium Chloride 1,000 mls @ 999 mls/hr 09/23/21 10:15 Normal Saline IV ASDIRECTED ANANTH Ondansetron HCl Confirm 09/23/21 10:50 09/23/21 12:06 Ondansetron 4 Mg/2 Ml Sdv Administered 09/23/21 10:51 Not Given Dose 4 mg .ROUTE .STK-MED ONE Ondansetron HCl 4 mg 09/23/21 10:47 09/23/21 10:40 Ondansetron 4 Mg/2 Ml Sdv IVPUSH 09/23/21 10:48 4 mg ONETIME ONE Administration - Radiology Interpretation Free Text/Narrative:: This patient presents to the emergency room for evaluation of weakness. History and clinical findings are most consistent with a anemia. Her hemoglobin today was 3.9. She will be admitted to the inpatient unit and transfused with 4 units of packed red blood cells. Patient was stable at the time she was transferred to the inpatient unit. Departure - Departure Time of Disposition: 13:30 Disposition: DC/Tfer to Medicaid [facility] Condition: Fair Clinical Impression: Anemia - Discharge Information - My Orders Last 24 Hours: My Active Orders 09/23/21 10:01 Saline Lock Insert [OM.PC] Routine 09/23/21 10:02 UA RFX TEMO AND CULT IF INDIC [URIN] Stat Ondansetron [Zofran] 4 mg IVPUSH Q4H PRN Sodium Chloride 0.9% [Saline Flush] 10 ml FLUSH ASDIRECTED PRN 09/23/21 10:03 Chest Abdomen Pelvis wo Cont [CT] Stat 09/23/21 10:59 RED BLOOD CELLS LP [BBK] Stat TYPE AND SCREEN [BBK] Stat 09/23/21 11:04 Transfuse Red Blood Cells [COMM] Stat 09/23/21 11:30 Patient Status Manage Transfer [TRANSFER] Routine - Assessment/Plan Last 24 Hours: My Active Orders 09/23/21 10:01 Saline Lock Insert [OM.PC] Routine 09/23/21 10:02 UA RFX TEMO AND CULT IF INDIC [URIN] Stat Ondansetron [Zofran] 4 mg IVPUSH Q4H PRN Sodium Chloride 0.9% [Saline Flush] 10 ml FLUSH ASDIRECTED PRN 09/23/21 10:03 Chest Abdomen Pelvis wo Cont [CT] Stat 09/23/21 10:59 RED BLOOD CELLS LP [BBK] Stat TYPE AND SCREEN [BBK] Stat 09/23/21 11:04 Transfuse Red Blood Cells [COMM] Stat 09/23/21 11:30 Patient Status Manage Transfer [TRANSFER] Routine
--- NOTE | 2021-09-23 15:01 | PCM.HP.2 ---
H&P History of Present Illness - General Date of Service: 09/23/21 Admit Problem/Dx: Admission Diagnosis/Problem Admission Diagnosis/Problem Anemia Source of Information: Patient, EMS, EMS Notes Reviewed, RN Notes Reviewed History Limitations: Reports: No Limitations - History of Present Illness Initial Comments - Free Text/Narative: This patient presents to the emergency department for evaluation of weakness. She was noted to be anemic and is being admitted to the inpatient unit on observation status for transfusion. - Related Data Allergies/Adverse Reactions: Allergies Allergy/AdvReac Type Severity Reaction Status Date / Time SHENG Inhibitors Allergy Difficulty Verified 09/23/21 13:54 Breathing atorvastatin Allergy Cannot Verified 09/23/21 13:54 Remember Latex, Natural Rubber Allergy Blisters Verified 09/23/21 13:54 Home Medications: Home Meds Gabapentin 300 mg PO TID 12/21/14 [History] Omeprazole 20 mg PO DAILY 12/21/14 [History] Simvastatin 40 mg PO DAILY 12/21/14 [History] fentaNYL [Fentanyl] 25 mcg TRDERM WEEKLY PRN 12/21/14 [History] Losartan [Cozaar] 50 mg PO BEDTIME 01/22/17 [History] dilTIAZem HCL [Taztia Xt] 360 mg PO DAILY 01/22/17 [History] Sennosides/Docusate Sodium [Senna Plus Tablet] 1 - 2 tab PO BID 12/15/17 [History] Acetaminophen [Tylenol Arthritis Pain] 650 mg PO TID PRN tab.er 12/16/17 [Rx] Docusate Sodium [DOK] 250 mg PO BID cap 12/16/17 [Rx] Venlafaxine [Effexor XR] 150 mg PO DAILY cap.er 12/16/17 [Rx] Levothyroxine [Synthroid] 88 mcg PO ACBREAKFAST 09/23/21 [History] Levothyroxine [Synthroid] 100 mcg PO ACBREAKFAST 09/23/21 [History] Venlafaxine HCl [Venlafaxine ER] 75 mg PO DAILY 09/23/21 [History] Past Medical History HEENT History: Reports: Impaired Vision Cardiovascular History: Reports: High Cholesterol, Hypertension Psychiatric History: Reports: Depression Hematologic History: Reports: Anemia - Infectious Disease History Infectious Disease History: Reports: Measles, Mumps, Rubella - Past Surgical History Musculoskeletal Surgical History: Reports: Knee Replacement Social & Family History - Family History Family Medical History: No Pertinent Family History - Caffeine Use Caffeine Use: Reports: Soda H&P Review of Systems - Review of Systems: Review Of Systems: Comprehensive ROS is negative, except as noted in HPI. Exam - Exam Exam: See Below - Vital Signs Vital Signs: Last Vital Signs Temp 36.8 C 09/23/21 13:45 Pulse 70 09/23/21 13:45 Resp 20 09/23/21 13:45 BP 139/52 L 09/23/21 13:45 Pulse Ox - Exam General: Alert, Oriented, Cooperative, Other (Pale) HEENT: PERRLA, Conjunctiva Clear, EACs Clear, EOMI, Hearing Intact, Mucosa Moist & [place], Nares Patent, Normal Nasal Septum, Posterior Pharynx Clear, Pupils Equal, Pupils Reactive Neck: Supple, Trachea Midline Cardiovascular: Regular Rate, Regular Rhythm GI/Abdominal Exam: Soft, Non-Tender, No Distention, Abnormal Bowel Sounds (Hypoactive in all 4 quadrants) Back Exam: Normal Inspection Extremities: Normal Inspection Skin: Warm, Dry, Intact Neuro Extensive - Mental Status: Alert, Oriented x3, Normal Mood/Affect, Normal Cognition - Patient Data Lab Results Last 24 hrs: Laboratory Results - last 24 hr 09/23/21 09/23/21 09/23/21 Range/Units 10:59 10:59 10:59 WBC 18.8 H D (4.0-11.0) K/uL RBC 1.75 L (3.80-5.80) M/uL Hgb 3.9 L* D (11.5-16.5) g/dL Hct 13.8 L* D (37.0-47.0) % MCV 79 (76-96) fL MCH 22.3 L D (27.0-32.0) pg MCHC 28.3 L (31.0-35.0) g/dL RDW 18.5 H (11.0-16.0) % Plt Count 223 (150-500) K/uL MPV 12.0 H (6.0-10.0) fL Neut % (Auto) 84.8 H (45.0-70.0) % Lymph % (Auto) 4.3 L (20.0-40.0) % [place] % (Auto) 10.5 H (3.0-10.0) % Eos % (Auto) 0.2 L (1.0-5.0) % Baso % (Auto) 0.2 (0.0-0.5) % Neut # (Auto) 15.97 H (2.00-7.50) K/uL Lymph # (Auto) 0.80 L (1.50-4.00) K/uL [place] # (Auto) 1.97 H (0.20-0.80) K/uL Eos # (Auto) 0.04 (0.04-0.40) K/uL Baso # (Auto) 0.03 (0.02-0.10) K/uL Sodium 137 (136-145) mmol/L Potassium 5.7 H D (3.5-5.1) mmol/L Chloride 106 (98-107) mmol/L Carbon Dioxide 17.4 L D (21.0-32.0) mmol/L Anion Gap 19.3 H (5.0-15.0) mmol/L BUN 57 H* D (8-26) mg/dL Creatinine 3.54 H* D (0.55-1.02) mg/dL Est Cr Clr Drug Dosing TNP Estimated GFR (MDRD) 12 L (>60) MLS/MIN BUN/Creatinine Ratio 16.1 (6-25) Glucose 93 (74-100) mg/dL Calcium 8.9 (8.5-10.1) mg/dL Blood Type A POSITIVE Gel Antibody Screen Negative Crossmatch See Detail Result Diagrams: 09/23/21 10:59 09/23/21 10:59 Sepsis Event Note - Focused Exam Vital Signs: Vital Signs Temp Pulse Resp BP 09/23/21 13:45 36.8 C 70 20 139/52 L 09/23/21 13:26 37.3 C 87 18 149/96 H - Problem List (1) Anemia SNOMED Code(s): 007161142 ICD Code: D64.9 - ANEMIA, UNSPECIFIED Status: Acute Priority: High Current Visit: Yes Problem List Initiated/Reviewed/Updated: Yes Orders Last 24hrs: Active Orders 24 hr Category Date Time Status Patient Status Manage Transfer [TRANSFER] Routine ADT 09/23/21 11:30 Active Patient Status [ADT] Routine ADT 09/23/21 14:44 Active Oxygen Therapy [RC] PRN Care 09/23/21 14:44 Active Up With Assistance [RC] ASDIRECTED Care 09/23/21 14:44 Active VTE/DVT Education [RC] Per Unit Routine Care 09/23/21 14:44 Active Vital Signs [RC] Q4H Care 09/23/21 14:44 Active Regular Diet [DIET] Diet 09/23/21 Dinner Ordered Chest Abdomen Pelvis wo Cont [CT] Stat Exams 09/23/21 10:03 Stop Req CBC WITH AUTO DIFF [HEME] AM Lab 09/24/21 05:11 Ordered RED BLOOD CELLS LP [BBK] Stat Lab 09/23/21 10:59 Results TYPE AND SCREEN [BBK] Stat Lab 09/23/21 10:59 Results UA RFX TEMO AND CULT IF INDIC [URIN] Stat Lab 09/23/21 10:02 Ordered Acetaminophen [TylenoL] Med 09/23/21 14:44 Ordered 650 mg PO Q4H PRN Morphine Med 09/23/21 14:44 Ordered 2 mg IVPUSH Q2H PRN Ondansetron [Zofran] Med 09/23/21 10:02 Active 4 mg IVPUSH Q4H PRN Sodium Chloride 0.9% [Saline Flush] Med 09/23/21 10:02 Active 10 ml FLUSH ASDIRECTED PRN Saline Lock Insert [OM.PC] Routine Oth 09/23/21 10:01 Ordered Transfuse Red Blood Cells [COMM] Stat Oth 09/23/21 11:04 Ordered Resuscitation Status Routine Resus Stat 09/23/21 14:44 Ordered Medication Orders Acetaminophen (Acetaminophen 325 Mg Tab) 650 mg PO Q4H PRN PRN Reason: Pain (Mild 1-3)/fever Morphine Sulfate (Morphine 2 Mg/Ml Syringe) 2 mg IVPUSH Q2H PRN PRN Reason: Pain (severe 7-10) Ondansetron HCl (Ondansetron 4 Mg/2 Ml Sdv) 4 mg IVPUSH Q4H PRN PRN Reason: Nausea/Vomiting Sodium Chloride (Sodium Chloride 0.9% 10 Ml Syringe) 10 ml FLUSH ASDIRECTED PRN PRN Reason: Keep Vein Open Assessment/Plan Comment:: Assessment: Anemia Plan: Transfuse with 4 units packed cells; recheck hemoglobin in the morning. - Mortality Measure Prognosis:: Good
[2021-09-23] MEDS ORDERED: Non-Formulary Medication 1 Each (Fentanyl [Fentanyl] 1 EACH Patch.Td72) TRDERM PRN (20:08)
[2021-09-23] MEDS ORDERED: DOCUSATE SODIUM PO SCH (20:08)
[2021-09-23] MEDS ORDERED: [UNRECOGNIZED DRUG - OTHER] PO SCH (20:08)
[2021-09-23] MEDS ORDERED: SENNOSIDES PO SCH (20:08)
[2021-09-23] MEDS ORDERED: Docusate Sodium 250 MG Cap PO SCH (20:08)
[2021-09-23] MEDS ORDERED: GABAPENTIN 300 MG PO SCH (20:08)
[2021-09-23] MEDS ORDERED: Acetaminophen 650 MG Tab.ER PO PRN (20:08)
[2021-09-23] MEDS ORDERED: fentaNYL 25 MCG/HR Transdermal Patch TRDERM SCH (20:30)
[2021-09-23] MEDS: Ferrous Sulfate 325 MG Tab PO SCH (21:15)
[2021-09-23] MEDS: LOSARTAN 50 MG PO SCH (21:15)
[2021-09-23] MEDS ORDERED: Docusate Sodium 250 MG Cap ONE (21:32)
[2021-09-23] MEDS ORDERED: Ferrous Sulfate 325 MG Tab ONE (21:33)
[2021-09-23] MEDS: Docusate Sodium 250 MG Cap PO SCH (21:37)
[2021-09-24] MEDS ORDERED: Simvastatin 10 MG Tab PO ONE (01:19)
[2021-09-24] MEDS: Docusate Sodium 250 MG Cap PO SCH ×2 (07:48→19:41)
[2021-09-24] MEDS: Diltiazem 120 MG Cap.CD PO SCH (07:48)
[2021-09-24] MEDS: Pantoprazole 40 MG Tab.CR PO SCH (07:50)
[2021-09-24] MEDS: Ferrous Sulfate 325 MG Tab PO SCH ×2 (07:50→16:28)
[2021-09-24] MEDS: Gabapentin 300 MG Cap PO SCH (07:51)
[2021-09-24] MEDS: Venlafaxine 75 MG Cap.ER **OWN MED PO SCH (07:52)
[2021-09-24] MEDS: Venlafaxine 150 MG Cap.ER **OWN MED PO SCH (07:52)
[2021-09-24] MEDS: Levothyroxine 100 MCG Tab **OWN MED PO SCH (07:53)
[2021-09-24] MEDS: Levothyroxine 88 MCG Tab **OWN MED PO SCH (07:53)
[2021-09-24] MEDS ORDERED: Non-Formulary Medication 1 Each (Omeprazole [Omeprazole] 20 MG Capsule.Dr) PO SCH (08:00)
[2021-09-24] MEDS ORDERED: Non-Formulary Medication 1 Each (Simvastatin [Simvastatin] 40 MG Tablet) PO SCH (08:00)
--- NOTE | 2021-09-24 14:10 | CR ---
DATE OF SERVICE: 09/24/21 CLINICAL DATA: HYPOXIA AP chest: Patient has taken a poor inspiration and is in an apical lordotic position. Comparison is made to a prior exam dated 18 August 2021. The heart size is within normal limits. There is calcification of the aortic arch. There is persistent prominence of the pulmonary vasculature suggesting pulmonary venous congestion. Proximal pulmonary arteries are also prominent suggesting mild pulmonary hypertension. There are mild interstitial changes throughout both lungs. There is increased density in both lung bases medially consistent with infiltrate or atelectasis. Pneumonia should be considered. No pneumothorax. No pleural effusions. Otherwise unchanged from the prior MTDD
--- NOTE | 2021-09-24 14:19 | PCM.PN ---
- General Info Date of Service: 09/24/21 Admission Dx/Problem (Free Text): Admission Diagnosis/Problem Admission Diagnosis/Problem Anemia Subjective Update: This patient was admitted from the emergency department yesterday for anemia and transfusion. Her hemoglobin has risen to 8.1 following the infusion of 4 units of packed cells; however, she continues to be hypoxic when she gets out of bed. A chest x-ray was obtained today which does reveal some increased density in both lung bases that is consistent with either an infiltrate or atelectasis. Given her inability to tolerate room air with any movement I do believe this is a pneumonia. She will be changed to inpatient status and IV antibiotics will be started. Functional Status: Reports: Pain Controlled, Tolerating Diet, Urinating - Review of Systems General: Reports: Weakness, Fatigue. Denies: Fever HEENT: Reports: No Symptoms Pulmonary: Reports: Shortness of Breath, Cough Cardiovascular: Reports: Dyspnea on Exertion. Denies: Chest Pain, Palpitations Gastrointestinal: Reports: No Symptoms Musculoskeletal: Reports: No Symptoms Skin: Reports: No Symptoms Neurological: Reports: No Symptoms - Patient Data Vitals - Most Recent: Last Vital Signs Temp 36.2 C 09/24/21 08:00 Pulse 81 09/24/21 08:00 Resp 18 09/24/21 08:00 BP 147/81 H 09/24/21 08:00 Pulse Ox 97 09/24/21 08:00 Weight - Most Recent: 98.883 kg I&O - Last 24 Hours: Intake & Output 09/23/21 09/24/21 09/24/21 22:59 06:59 14:59 Intake Total 2219 1431 Output Total 1000 625 Balance 1219 806 Lab Results Last 24 Hours: Laboratory Results - last 24 hr 09/23/21 09/23/21 09/24/21 Range/Units 10:59 16:15 07:20 WBC 14.3 H D (4.0-11.0) K/uL RBC 3.17 L (3.80-5.80) M/uL Hgb 8.1 L D (11.5-16.5) g/dL Hct 25.5 L D (37.0-47.0) % MCV 80 (76-96) fL MCH 25.6 L (27.0-32.0) pg MCHC 31.8 (31.0-35.0) g/dL RDW 18.5 H (11.0-16.0) % Plt Count 151 D (150-500) K/uL MPV 11.2 H (6.0-10.0) fL Neut % (Auto) 85.3 H (45.0-70.0) % Lymph % (Auto) 6.0 L (20.0-40.0) % [place] % (Auto) 6.7 (3.0-10.0) % Eos % (Auto) 1.8 (1.0-5.0) % Baso % (Auto) 0.2 (0.0-0.5) % Neut # (Auto) 12.20 H (2.00-7.50) K/uL Lymph # (Auto) 0.85 L (1.50-4.00) K/uL [place] # (Auto) 0.95 H (0.20-0.80) K/uL Eos # (Auto) 0.25 (0.04-0.40) K/uL Baso # (Auto) 0.03 (0.02-0.10) K/uL Urine Color Yellow Urine Appearance Cloudy (CLEAR) Urine pH 5.0 (5.0-8.0) Ur Specific [place] 1.025 (1.003-1.030) Urine Protein Negative (NEGATIVE) mg/dL Urine Glucose (UA) Negative (NEGATIVE) mg/dL Urine Ketones Negative (NEGATIVE) mg/dL Urine Occult Blood Negative (NEGATIVE) Urine Nitrite Negative (NEGATIVE) Urine Bilirubin Negative (NEGATIVE) Urine Urobilinogen 1.0 (0.2-1.0) E.U./dL Ur Leukocyte Esterase Negative (NEGATIVE) Blood Type A POSITIVE Gel Antibody Screen Negative Crossmatch See Detail Med Orders - Current: Current Medications Acetaminophen (Acetaminophen 325 Mg Tab) 650 mg PO Q4H PRN PRN Reason: Pain (Mild 1-3)/fever Last Admin: 09/23/21 23:54 Dose: 650 mg Documented by: Diltiazem HCl (Diltiazem 120 Mg Cap.Cd) 360 mg PO DAILY [facility] Last Admin: 09/24/21 07:48 Dose: 360 mg Documented by: Docusate Sodium (Docusate Sodium 250 Mg Cap) 500 mg PO BID [facility] Last Admin: 09/24/21 07:48 Dose: 500 mg Documented by: Fentanyl (Fentanyl 25 Mcg/Hr Transdermal Patch) 25 mcg TRDERM Q72H [facility] Last Admin: 09/23/21 21:18 Dose: 25 mcg Documented by: Ferrous Sulfate (Ferrous Sulfate 325 Mg Tab) 325 mg PO BIDMEALS [facility] Last Admin: 09/24/21 07:50 Dose: 325 mg Documented by: Gabapentin (Gabapentin 300 Mg Cap) 300 mg PO DAILY [facility] Last Admin: 09/24/21 07:51 Dose: 300 mg Documented by: Levothyroxine Sodium (Levothyroxine 88 Mcg Tab Own Med) 88 mcg PO ACBREAKFAST [facility] Last Admin: 09/24/21 07:53 Dose: 88 mcg Documented by: Levothyroxine Sodium (Levothyroxine 100 Mcg Tab Own Med) 100 mcg PO ACBREAKFAST [facility] Last Admin: 09/24/21 07:53 Dose: 100 mcg Documented by: Losartan Potassium (Losartan 50 Mg Tab Pt Own Med) 50 mg PO BEDTIME [facility] Last Admin: 09/23/21 21:15 Dose: 50 mg Documented by: Morphine Sulfate (Morphine 2 Mg/Ml Syringe) 2 mg IVPUSH Q2H PRN PRN Reason: Pain (severe 7-10) Ondansetron HCl (Ondansetron 4 Mg/2 Ml Sdv) 4 mg IVPUSH Q4H PRN PRN Reason: Nausea/Vomiting Pantoprazole Sodium (Pantoprazole 40 Mg Tab.Cr) 40 mg PO ACBREAKFAST [facility] Last Admin: 09/24/21 07:50 Dose: 40 mg Documented by: Sodium Chloride (Sodium Chloride 0.9% 10 Ml Syringe) 10 ml FLUSH ASDIRECTED PRN PRN Reason: Keep Vein Open Venlafaxine HCl (Venlafaxine 150 Mg Cap.Er Own Med) 150 mg PO DAILY [facility] Last Admin: 09/24/21 07:52 Dose: 150 mg Documented by: Venlafaxine HCl (Venlafaxine 75 Mg Cap.Er Own Med) 75 mg PO DAILY [facility] Last Admin: 09/24/21 07:52 Dose: 75 mg Documented by: Discontinued Medications Acetaminophen (Acetaminophen 650 Mg Tab.Er) 650 mg PO TID PRN PRN Reason: ARTHRITIS Docusate Sodium (Docusate Sodium 250 Mg Cap) 250 mg PO BID [facility] Last Admin: 12/26/21 22:35 Dose: Not Given Documented by: Docusate Sodium (Docusate Sodium 250 Mg Cap) Confirm Administered Dose 500 mg .ROUTE .STK-MED ONE Stop: 09/23/21 21:33 Last Admin: 09/23/21 22:33 Dose: Not Given Documented by: Ferrous Sulfate (Ferrous Sulfate 325 Mg Tab) Confirm Administered Dose 325 mg .ROUTE .STK-MED ONE Stop: 09/23/21 21:34 Last Admin: 09/23/21 22:33 Dose: Not Given Documented by: Hydromorphone HCl (Hydromorphone 2 Mg/Ml Sdv) Confirm Administered Dose 2 mg .ROUTE .STK-MED ONE Stop: 09/23/21 10:37 Last Admin: 09/23/21 12:05 Dose: Not Given Documented by: Hydromorphone HCl (Hydromorphone 2 Mg/Ml Sdv) 1 mg IVPUSH ONETIME ONE Stop: 09/23/21 10:47 Last Admin: 09/23/21 10:35 Dose: 1 mg Documented by: Sodium Chloride (Normal Saline) 1,000 mls @ 999 mls/hr IV ASDIRECTED [facility] Non-Formulary Medication (Fentanyl [Fentanyl]) 25 mcg TRDERM WEEKLY PRN PRN Reason: Other Non-Formulary Medication (Gabapentin [Gabapentin]) 300 mg PO TID [facility] Last Admin: 09/23/21 22:35 Dose: Not Given Documented by: Non-Formulary Medication (Simvastatin [Simvastatin]) 40 mg PO DAILY [facility] Ondansetron HCl (Ondansetron 4 Mg/2 Ml Sdv) Confirm Administered Dose 4 mg .ROUTE .STK-MED ONE Stop: 09/23/21 10:51 Last Admin: 09/23/21 12:06 Dose: Not Given Documented by: Ondansetron HCl (Ondansetron 4 Mg/2 Ml Sdv) 4 mg IVPUSH ONETIME ONE Stop: 09/23/21 10:48 Last Admin: 09/23/21 10:40 Dose: 4 mg Documented by: Senna/Docusate Sodium (Docusate Sodium/Sennosides 50-8.6 Mg Tab) 1 tab PO BID [facility] Last Admin: 09/23/21 22:35 Dose: Not Given Documented by: Senna/Docusate Sodium (Docusate Sodium/Sennosides 50-8.6 Mg Tab) 2 tab PO BID [facility] Last Admin: 09/23/21 22:36 Dose: Not Given Documented by: Simvastatin (Simvastatin 10 Mg Tab) 10 mg PO ONETIME ONE Stop: 09/24/21 01:20 Last Admin: 09/24/21 04:21 Dose: Not Given Documented by: - Exam Quality Assessment: Supplemental Oxygen, Urine Catheter General: Alert, Oriented, Cooperative, Mild Distress (With movement) HEENT: Pupils Equal, Pupils Reactive, EOMI, Mucous Membr. Moist/[place] Neck: Supple Lungs: Decreased Breath Sounds (Bilateral bases), Rales (Bilateral bases) Cardiovascular: Regular Rate, Regular Rhythm Extremities: Normal Inspection Skin: Warm, Dry Neurological: No New Focal Deficit Psy/Mental Status: Alert, Normal Affect - Patient Data Lab Results Last 24 hrs: Laboratory Results - last 24 hr 09/23/21 09/23/21 09/24/21 Range/Units 10:59 16:15 07:20 WBC 14.3 H D (4.0-11.0) K/uL RBC 3.17 L (3.80-5.80) M/uL Hgb 8.1 L D (11.5-16.5) g/dL Hct 25.5 L D (37.0-47.0) % MCV 80 (76-96) fL MCH 25.6 L (27.0-32.0) pg MCHC 31.8 (31.0-35.0) g/dL RDW 18.5 H (11.0-16.0) % Plt Count 151 D (150-500) K/uL MPV 11.2 H (6.0-10.0) fL Neut % (Auto) 85.3 H (45.0-70.0) % Lymph % (Auto) 6.0 L (20.0-40.0) % [place] % (Auto) 6.7 (3.0-10.0) % Eos % (Auto) 1.8 (1.0-5.0) % Baso % (Auto) 0.2 (0.0-0.5) % Neut # (Auto) 12.20 H (2.00-7.50) K/uL Lymph # (Auto) 0.85 L (1.50-4.00) K/uL [place] # (Auto) 0.95 H (0.20-0.80) K/uL Eos # (Auto) 0.25 (0.04-0.40) K/uL Baso # (Auto) 0.03 (0.02-0.10) K/uL Urine Color Yellow Urine Appearance Cloudy (CLEAR) Urine pH 5.0 (5.0-8.0) Ur Specific [place] 1.025 (1.003-1.030) Urine Protein Negative (NEGATIVE) mg/dL Urine Glucose (UA) Negative (NEGATIVE) mg/dL Urine Ketones Negative (NEGATIVE) mg/dL Urine Occult Blood Negative (NEGATIVE) Urine Nitrite Negative (NEGATIVE) Urine Bilirubin Negative (NEGATIVE) Urine Urobilinogen 1.0 (0.2-1.0) E.U./dL Ur Leukocyte Esterase Negative (NEGATIVE) Blood Type A POSITIVE Gel Antibody Screen Negative Crossmatch See Detail Result Diagrams: 09/24/21 07:20 09/23/21 10:59 Sepsis Event Note - Evaluation Sepsis Screening Result: No Definite Risk - Focused Exam Vital Signs: Vital Signs Temp Pulse Pulse Resp BP BP Pulse Ox 09/24/21 08:00 36.2 C 81 18 147/81 H 97 09/24/21 07:48 87 141/61 H 09/24/21 04:00 36.8 C 87 20 141/61 H 98 - Problem List & Annotations (1) Anemia SNOMED Code(s): 732263323 Code(s): D64.9 - ANEMIA, UNSPECIFIED Status: Acute Priority: High Current Visit: Yes (2) Pneumonia SNOMED Code(s): 345926896 Code(s): J18.9 - PNEUMONIA, UNSPECIFIED ORGANISM Status: Acute Priority: High Current Visit: Yes - Problem List Review Problem List Initiated/Reviewed/Updated: Yes - My Orders Last 24 Hours: My Active Orders 09/23/21 14:44 Patient Status [ADT] Routine Oxygen Therapy [RC] DAILY Up With Assistance [RC] ASDIRECTED VTE/DVT Education [RC] DAILY Vital Signs [RC] Q4H Acetaminophen [TylenoL] 650 mg PO Q4H PRN Morphine 2 mg IVPUSH Q2H PRN Resuscitation Status Routine 09/23/21 15:41 CULTURE MRSA SURVEY [RM] Routine 09/23/21 16:20 Urinary Catheter Insertion [Insert Urinary Catheter] [OM.PC] Q24H 09/23/21 Dinner Regular Diet [DIET] 09/23/21 20:05 Guaiac [OCCULT BLOOD DIAGNOSTIC] [OP] Routine 09/23/21 20:08 Losartan [Cozaar] 50 mg PO BEDTIME 09/23/21 20:30 fentaNYL [Duragesic] 25 mcg TRDERM Q72H 09/23/21 21:30 Docusate Sodium [Dok] 500 mg PO BID 09/24/21 07:00 Levothyroxine [Synthroid] 100 mcg PO ACBREAKFAST Levothyroxine [Synthroid] 88 mcg PO ACBREAKFAST Pantoprazole [ProTONIX] 40 mg PO ACBREAKFAST 09/24/21 08:00 Diltiazem [Cardizem CD] 360 mg PO DAILY [facility] 325 mg PO BIDMEALS Gabapentin [Neurontin] 300 mg PO DAILY Venlafaxine [Effexor XR] 150 mg PO DAILY Venlafaxine [Effexor XR] 75 mg PO DAILY - Assessment Assessment:: 1. Anemia 2. Pneumonia - Plan Plan:: 1. Initiate IV antibiotics for broad-spectrum coverage. 2. supplemental oxygen as needed to keep saturation greater than 92%. 3. Recheck hemoglobin on 1229. 4. Diet and activity as tolerated.
[2021-09-24] MEDS ORDERED: Azithromycin 500 MG in Sodium Chloride 0.9% 250 ML IV SCH (14:30)
[2021-09-24] MEDS ORDERED: cefTRIAXone 1 GM in Sodium Chloride 0.9% 50 ML IV SCH (15:00)
[2021-09-24] MEDS ORDERED: Losartan 50 MG Tab ONE (19:41)
[2021-09-24] MEDS: LOSARTAN 50 MG PO SCH (19:46)
[2021-09-24] MEDS ORDERED: Simvastatin 10 MG Tab ONE (19:54)
[2021-09-24] MEDS: Simvastatin 10 MG Tab PO SCH (20:15)
[2021-09-25] MEDS: Pantoprazole 40 MG Tab.CR PO SCH (06:16)
[2021-09-25] MEDS: Levothyroxine 100 MCG Tab **OWN MED PO SCH (06:16)
[2021-09-25] MEDS: Levothyroxine 88 MCG Tab **OWN MED PO SCH (06:17)
[2021-09-25] MEDS: Venlafaxine 75 MG Cap.ER **OWN MED PO SCH (07:55)
[2021-09-25] MEDS: Gabapentin 300 MG Cap PO SCH (07:55)
[2021-09-25] MEDS: Venlafaxine 150 MG Cap.ER **OWN MED PO SCH (07:55)
[2021-09-25] MEDS: Diltiazem 120 MG Cap.CD PO SCH (07:56)
[2021-09-25] MEDS: Ferrous Sulfate 325 MG Tab PO SCH ×2 (07:57→17:00)
[2021-09-25] MEDS: Docusate Sodium 250 MG Cap PO SCH ×2 (07:57→19:48)
[2021-09-25] MEDS ORDERED: Venlafaxine 150 MG Cap.ER PO SCH (08:00)
--- NOTE | 2021-09-25 10:03 | PCM.PN ---
- General Info Date of Service: 09/25/21 Admission Dx/Problem (Free Text): Admission Diagnosis/Problem Anemia Pneumonia Subjective Update: Patient much improved today with vital signs stable. She has not had a fever. She is tolerating room air well up and around in her room. Appetite is fair she is drinking fluids well. She denies pain, nausea, vomiting. She has had no diarrhea. Functional Status: Reports: Pain Controlled - Review of Systems General: Reports: No Symptoms HEENT: Reports: No Symptoms Pulmonary: Reports: Shortness of Breath, Cough, Sputum Cardiovascular: Reports: No Symptoms Gastrointestinal: Reports: No Symptoms Genitourinary: Reports: No Symptoms Musculoskeletal: Reports: No Symptoms Skin: Reports: No Symptoms Neurological: Reports: No Symptoms - Patient Data Vitals - Most Recent: Last Vital Signs Temp 36.9 C 09/25/21 08:00 Pulse 87 09/25/21 08:00 Resp 18 09/25/21 08:00 BP 146/65 H 09/25/21 08:00 Pulse Ox 97 09/25/21 08:00 Weight - Most Recent: 98.883 kg I&O - Last 24 Hours: Intake & Output 09/24/21 09/25/21 09/25/21 22:59 06:59 14:59 Output Total 700 Balance -700 David Results Last 24 Hours: Microbiology 09/23/21 15:41 MRSA Surveillance Culture - Final Nares, Left NO MRSA ISOLATED Med Orders - Current: Current Medications Acetaminophen (Acetaminophen 325 Mg Tab) 650 mg PO Q4H PRN PRN Reason: Pain (Mild 1-3)/fever Last Admin: 09/23/21 23:54 Dose: 650 mg Documented by: Diltiazem HCl (Diltiazem 120 Mg Cap.Cd) 360 mg PO DAILY [facility] Last Admin: 09/25/21 07:56 Dose: 360 mg Documented by: Docusate Sodium (Docusate Sodium 250 Mg Cap) 500 mg PO BID [facility] Last Admin: 09/25/21 07:57 Dose: 500 mg Documented by: Fentanyl (Fentanyl 25 Mcg/Hr Transdermal Patch) 25 mcg TRDERM Q72H [facility] Last Admin: 09/23/21 21:18 Dose: 25 mcg Documented by: Ferrous Sulfate (Ferrous Sulfate 325 Mg Tab) 325 mg PO BIDMEALS [facility] Last Admin: 09/25/21 07:57 Dose: 325 mg Documented by: Gabapentin (Gabapentin 300 Mg Cap) 300 mg PO DAILY [facility] Last Admin: 09/25/21 07:55 Dose: 300 mg Documented by: Ceftriaxone Sodium 1 gm/ (Sodium Chloride) 50 mls @ 100 mls/hr IV Q24H [facility] Last Admin: 09/24/21 16:28 Dose: 100 mls/hr Documented by: Azithromycin 500 mg/ Sodium (Chloride) 250 mls @ 250 mls/hr IV Q24H [facility] Last Admin: 09/24/21 15:28 Dose: 250 mls/hr Documented by: Levothyroxine Sodium (Levothyroxine 88 Mcg Tab Own Med) 88 mcg PO ACBREAKFAST [facility] Last Admin: 09/25/21 06:17 Dose: 88 mcg Documented by: Levothyroxine Sodium (Levothyroxine 100 Mcg Tab Own Med) 100 mcg PO ACBREAKFAST [facility] Last Admin: 09/25/21 06:16 Dose: 100 mcg Documented by: Losartan Potassium (Losartan 50 Mg Tab Pt Own Med) 50 mg PO BEDTIME [facility] Last Admin: 09/24/21 19:46 Dose: 50 mg Documented by: Morphine Sulfate (Morphine 2 Mg/Ml Syringe) 2 mg IVPUSH Q2H PRN PRN Reason: Pain (severe 7-10) Ondansetron HCl (Ondansetron 4 Mg/2 Ml Sdv) 4 mg IVPUSH Q4H PRN PRN Reason: Nausea/Vomiting Pantoprazole Sodium (Pantoprazole 40 Mg Tab.Cr) 40 mg PO ACBREAKFAST [facility] Last Admin: 09/25/21 06:16 Dose: 40 mg Documented by: Simvastatin (Simvastatin 10 Mg Tab) 10 mg PO BEDTIME [facility] Last Admin: 09/24/21 20:15 Dose: 10 mg Documented by: Sodium Chloride (Sodium Chloride 0.9% 10 Ml Syringe) 10 ml FLUSH ASDIRECTED PRN PRN Reason: Keep Vein Open Venlafaxine HCl (Venlafaxine 150 Mg Cap.Er Own Med) 150 mg PO DAILY [facility] Last Admin: 09/25/21 07:55 Dose: 150 mg Documented by: Venlafaxine HCl (Venlafaxine 75 Mg Cap.Er Own Med) 75 mg PO DAILY [facility] Last Admin: 09/25/21 07:55 Dose: 75 mg Documented by: Discontinued Medications Acetaminophen (Acetaminophen 650 Mg Tab.Er) 650 mg PO TID PRN PRN Reason: ARTHRITIS Docusate Sodium (Docusate Sodium 250 Mg Cap) 250 mg PO BID [facility] Last Admin: 09/23/21 22:35 Dose: Not Given Documented by: Docusate Sodium (Docusate Sodium 250 Mg Cap) Confirm Administered Dose 500 mg .ROUTE .STK-MED ONE Stop: 09/23/21 21:33 Last Admin: 09/23/21 22:33 Dose: Not Given Documented by: Ferrous Sulfate (Ferrous Sulfate 325 Mg Tab) Confirm Administered Dose 325 mg .ROUTE .STK-MED ONE Stop: 09/23/21 21:34 Last Admin: 09/23/21 22:33 Dose: Not Given Documented by: Hydromorphone HCl (Hydromorphone 2 Mg/Ml Sdv) Confirm Administered Dose 2 mg .ROUTE .STK-MED ONE Stop: 09/23/21 10:37 Last Admin: 09/23/21 12:05 Dose: Not Given Documented by: Hydromorphone HCl (Hydromorphone 2 Mg/Ml Sdv) 1 mg IVPUSH ONETIME ONE Stop: 09/23/21 10:47 Last Admin: 09/23/21 10:35 Dose: 1 mg Documented by: Sodium Chloride (Normal Saline) 1,000 mls @ 999 mls/hr IV ASDIRECTED [facility] Losartan Potassium (Losartan 50 Mg Tab) Confirm Administered Dose 50 mg .ROUTE .STK-MED ONE Stop: 09/24/21 19:42 Last Admin: 09/24/21 19:49 Dose: Not Given Documented by: Non-Formulary Medication (Fentanyl [Fentanyl]) 25 mcg TRDERM WEEKLY PRN PRN Reason: Other Non-Formulary Medication (Gabapentin [Gabapentin]) 300 mg PO TID [facility] Last Admin: 09/23/21 22:35 Dose: Not Given Documented by: Non-Formulary Medication (Simvastatin [Simvastatin]) 40 mg PO DAILY [facility] Ondansetron HCl (Ondansetron 4 Mg/2 Ml Sdv) Confirm Administered Dose 4 mg .ROUTE .STK-MED ONE Stop: 09/23/21 10:51 Last Admin: 09/23/21 12:06 Dose: Not Given Documented by: Ondansetron HCl (Ondansetron 4 Mg/2 Ml Sdv) 4 mg IVPUSH ONETIME ONE Stop: 09/23/21 10:48 Last Admin: 09/23/21 10:40 Dose: 4 mg Documented by: Senna/Docusate Sodium (Docusate Sodium/Sennosides 50-8.6 Mg Tab) 1 tab PO BID [facility] Last Admin: 09/23/21 22:35 Dose: Not Given Documented by: Senna/Docusate Sodium (Docusate Sodium/Sennosides 50-8.6 Mg Tab) 2 tab PO BID [facility] Last Admin: 09/23/21 22:36 Dose: Not Given Documented by: Simvastatin (Simvastatin 10 Mg Tab) 10 mg PO ONETIME ONE Stop: 09/24/21 01:20 Last Admin: 09/24/21 04:21 Dose: Not Given Documented by: Simvastatin (Simvastatin 10 Mg Tab) Confirm Administered Dose 10 mg .ROUTE .STK- MED ONE Stop: 09/24/21 19:55 Last Admin: 09/24/21 20:14 Dose: Not Given Documented by: - Exam Quality Assessment: Supplemental Oxygen General: Alert, Oriented, Cooperative, Mild Distress HEENT: Pupils Equal, Pupils Reactive, EOMI, Mucous Membr. Moist/[place] Neck: Supple Lungs: Decreased Breath Sounds (bilateral bases), Rales (bilateral bases) Back Exam: Normal Inspection Extremities: Normal Inspection Skin: Warm, Dry, Intact Neurological: No New Focal Deficit Psy/Mental Status: Alert, Normal Affect - Patient Data Result Diagrams: 09/24/21 07:20 09/23/21 10:59 David Results Last 24 hrs: Microbiology 09/23/21 15:41 MRSA Surveillance Culture - Final Nares, Left NO MRSA ISOLATED Sepsis Event Note - Evaluation Sepsis Screening Result: No Definite Risk - Focused Exam Vital Signs: Vital Signs Temp Pulse Pulse Resp BP BP Pulse Ox 09/25/21 08:00 36.9 C 87 18 146/65 H 97 09/25/21 07:56 87 146/65 H 09/25/21 00:00 36.6 C 84 18 138/61 100 - Problem List & Annotations (1) Anemia SNOMED Code(s): 124098537 Code(s): D64.9 - ANEMIA, UNSPECIFIED Status: Acute Priority: High Current Visit: Yes (2) Pneumonia SNOMED Code(s): 857178807 Code(s): J18.9 - PNEUMONIA, UNSPECIFIED ORGANISM Status: Acute Priority: High Current Visit: Yes - Problem List Review Problem List Initiated/Reviewed/Updated: Yes - My Orders Last 24 Hours: My Active Orders 09/24/21 14:30 Azithromycin [Zithromax] 500 mg Sodium Chloride 0.9% [Normal Saline AdvBag] 250 ml IV Q24H 09/24/21 14:57 Admission Status [Patient Status] [ADT] Routine 09/24/21 15:00 cefTRIAXone [Rocephin] 1 gm Sodium Chloride 0.9% [Normal Saline AdvBag] 50 ml IV Q24H 09/24/21 20:00 Simvastatin [Zocor] 10 mg PO BEDTIME - Assessment Assessment:: 1. Anemia 2. Pneumonia - Plan Plan:: 1. Initiate IV antibiotics for broad-spectrum coverage. 2. supplemental oxygen as needed to keep saturation greater than 92%. 3. Recheck hemoglobin on 1229. 4. Diet and activity as tolerated.
--- NOTE | 2021-09-25 10:39 | PCM.PN ---
- General Info Date of Service: 09/25/21 Admission Dx/Problem (Free Text): Admission Diagnosis/Problem Anemia Pneumonia Subjective Update: Patient much improved today with vital signs stable. She has not had a fever. She is tolerating room air well up and around in her room. Appetite is fair she is drinking fluids well. She denies pain, nausea, vomiting. She has had no diarrhea. Functional Status: Reports: Tolerating Diet, Ambulating, Urinating - Review of Systems General: Reports: No Symptoms HEENT: Reports: No Symptoms Pulmonary: Reports: No Symptoms Cardiovascular: Reports: No Symptoms Gastrointestinal: Reports: No Symptoms Genitourinary: Reports: No Symptoms Musculoskeletal: Reports: No Symptoms Skin: Reports: No Symptoms Neurological: Reports: No Symptoms Psychiatric: Reports: No Symptoms - Patient Data Vitals - Most Recent: Last Vital Signs Temp 36.9 C 09/25/21 08:00 Pulse 87 09/25/21 08:00 Resp 18 09/25/21 08:00 BP 146/65 H 09/25/21 08:00 Pulse Ox 97 09/25/21 08:00 Weight - Most Recent: 98.883 kg I&O - Last 24 Hours: Intake & Output 09/24/21 09/25/21 09/25/21 22:59 06:59 14:59 Output Total 700 Balance -700 David Results Last 24 Hours: Microbiology 09/23/21 15:41 MRSA Surveillance Culture - Final Nares, Left NO MRSA ISOLATED Med Orders - Current: Current Medications Acetaminophen (Acetaminophen 325 Mg Tab) 650 mg PO Q4H PRN PRN Reason: Pain (Mild 1-3)/fever Last Admin: 09/23/21 23:54 Dose: 650 mg Documented by: Azithromycin (Azithromycin 500 Mg Tab) 500 mg PO Q24H [facility] Stop: 09/29/21 23:59 Diltiazem HCl (Diltiazem 120 Mg Cap.Cd) 360 mg PO DAILY [facility] Last Admin: 09/25/21 07:56 Dose: 360 mg Documented by: Docusate Sodium (Docusate Sodium 250 Mg Cap) 500 mg PO BID [facility] Last Admin: 09/25/21 07:57 Dose: 500 mg Documented by: Fentanyl (Fentanyl 25 Mcg/Hr Transdermal Patch) 25 mcg TRDERM Q72H [facility] Last Admin: 09/23/21 21:18 Dose: 25 mcg Documented by: Ferrous Sulfate (Ferrous Sulfate 325 Mg Tab) 325 mg PO BIDMEALS [facility] Last Admin: 09/25/21 07:57 Dose: 325 mg Documented by: Gabapentin (Gabapentin 300 Mg Cap) 300 mg PO DAILY [facility] Last Admin: 09/25/21 07:55 Dose: 300 mg Documented by: Levofloxacin (Levofloxacin 500 Mg Tab) 500 mg PO Q24H [facility] Stop: 09/29/21 23:59 Levothyroxine Sodium (Levothyroxine 88 Mcg Tab Own Med) 88 mcg PO ACBREAKFAST [facility] Last Admin: 09/25/21 06:17 Dose: 88 mcg Documented by: Levothyroxine Sodium (Levothyroxine 100 Mcg Tab Own Med) 100 mcg PO ACBREAKFAST [facility] Last Admin: 09/25/21 06:16 Dose: 100 mcg Documented by: Losartan Potassium (Losartan 50 Mg Tab Pt Own Med) 50 mg PO BEDTIME [facility] Last Admin: 09/24/21 19:46 Dose: 50 mg Documented by: Pantoprazole Sodium (Pantoprazole 40 Mg Tab.Cr) 40 mg PO ACBREAKFAST [facility] Last Admin: 09/25/21 06:16 Dose: 40 mg Documented by: Simvastatin (Simvastatin 10 Mg Tab) 10 mg PO BEDTIME [facility] Last Admin: 09/24/21 20:15 Dose: 10 mg Documented by: Venlafaxine HCl (Venlafaxine 150 Mg Cap.Er Own Med) 150 mg PO DAILY [facility] Last Admin: 09/25/21 07:55 Dose: 150 mg Documented by: Venlafaxine HCl (Venlafaxine 75 Mg Cap.Er Own Med) 75 mg PO DAILY [facility] Last Admin: 09/25/21 07:55 Dose: 75 mg Documented by: Discontinued Medications Acetaminophen (Acetaminophen 650 Mg Tab.Er) 650 mg PO TID PRN PRN Reason: ARTHRITIS Docusate Sodium (Docusate Sodium 250 Mg Cap) 250 mg PO BID [facility] Last Admin: 09/23/21 22:35 Dose: Not Given Documented by: Docusate Sodium (Docusate Sodium 250 Mg Cap) Confirm Administered Dose 500 mg .ROUTE .STK-MED ONE Stop: 09/23/21 21:33 Last Admin: 09/23/21 22:33 Dose: Not Given Documented by: Ferrous Sulfate (Ferrous Sulfate 325 Mg Tab) Confirm Administered Dose 325 mg . ROUTE .STK-MED ONE Stop: 09/23/21 21:34 Last Admin: 09/23/21 22:33 Dose: Not Given Documented by: Hydromorphone HCl (Hydromorphone 2 Mg/Ml Sdv) Confirm Administered Dose 2 mg .ROUTE .STK-MED ONE Stop: 09/23/21 10:37 Last Admin: 09/23/21 12:05 Dose: Not Given Documented by: Hydromorphone HCl (Hydromorphone 2 Mg/Ml Sdv) 1 mg IVPUSH ONETIME ONE Stop: 09/23/21 10:47 Last Admin: 09/23/21 10:35 Dose: 1 mg Documented by: Sodium Chloride (Normal Saline) 1,000 mls @ 999 mls/hr IV ASDIRECTED [facility] Ceftriaxone Sodium 1 gm/ (Sodium Chloride) 50 mls @ 100 mls/hr IV Q24H [facility] Last Admin: 09/24/21 16:28 Dose: 100 mls/hr Documented by: Azithromycin 500 mg/ Sodium (Chloride) 250 mls @ 250 mls/hr IV Q24H [facility] Last Admin: 09/24/21 15:28 Dose: 250 mls/hr Documented by: Losartan Potassium (Losartan 50 Mg Tab) Confirm Administered Dose 50 mg .ROUTE .STK-MED ONE Stop: 09/24/21 19:42 Last Admin: 09/24/21 19:49 Dose: Not Given Documented by: Morphine Sulfate (Morphine 2 Mg/Ml Syringe) 2 mg IVPUSH Q2H PRN PRN Reason: Pain (severe 7-10) Non-Formulary Medication (Fentanyl [Fentanyl]) 25 mcg TRDERM WEEKLY PRN PRN Reason: Other Non-Formulary Medication (Gabapentin [Gabapentin]) 300 mg PO TID [facility] Last Admin: 09/23/21 22:35 Dose: Not Given Documented by: Non-Formulary Medication (Simvastatin [Simvastatin]) 40 mg PO DAILY [facility] Ondansetron HCl (Ondansetron 4 Mg/2 Ml Sdv) 4 mg IVPUSH Q4H PRN PRN Reason: Nausea/Vomiting Ondansetron HCl (Ondansetron 4 Mg/2 Ml Sdv) Confirm Administered Dose 4 mg .ROUTE .STK-MED ONE Stop: 09/23/21 10:51 Last Admin: 09/23/21 12:06 Dose: Not Given Documented by: Ondansetron HCl (Ondansetron 4 Mg/2 Ml Sdv) 4 mg IVPUSH ONETIME ONE Stop: 09/23/21 10:48 Last Admin: 09/23/21 10:40 Dose: 4 mg Documented by: Senna/Docusate Sodium (Docusate Sodium/Sennosides 50-8.6 Mg Tab) 1 tab PO BID [facility] Last Admin: 09/23/21 22:35 Dose: Not Given Documented by: Senna/Docusate Sodium (Docusate Sodium/Sennosides 50-8.6 Mg Tab) 2 tab PO BID [facility] Last Admin: 09/23/21 22:36 Dose: Not Given Documented by: Simvastatin (Simvastatin 10 Mg Tab) 10 mg PO ONETIME ONE Stop: 09/24/21 01:20 Last Admin: 09/24/21 04:21 Dose: Not Given Documented by: Simvastatin (Simvastatin 10 Mg Tab) Confirm Administered Dose 10 mg .ROUTE .STK- MED ONE Stop: 09/24/21 19:55 Last Admin: 09/24/21 20:14 Dose: Not Given Documented by: Sodium Chloride (Sodium Chloride 0.9% 10 Ml Syringe) 10 ml FLUSH ASDIRECTED PRN PRN Reason: Keep Vein Open - Exam Quality Assessment: No: Supplemental Oxygen General: Alert, Oriented, Cooperative, No Acute Distress HEENT: Pupils Equal, Pupils Reactive, EOMI Neck: Supple Lungs: Clear to Auscultation, Decreased Breath Sounds (Mildly decreased bilateral bases). No: Crackles, Rales, Rhonchi Cardiovascular: Regular Rate, Regular Rhythm - Patient Data Result Diagrams: 09/24/21 07:20 09/23/21 10:59 David Results Last 24 hrs: Microbiology 09/23/21 15:41 MRSA Surveillance Culture - Final Nares, Left NO MRSA ISOLATED Sepsis Event Note - Evaluation Sepsis Screening Result: No Definite Risk - Focused Exam Vital Signs: Vital Signs Temp Pulse Pulse Resp BP BP Pulse Ox 09/25/21 08:00 36.9 C 87 18 146/65 H 97 09/25/21 07:56 87 146/65 H 09/25/21 00:00 36.6 C 84 18 138/61 100 - Problem List & Annotations (1) Anemia SNOMED Code(s): 115964233 Code(s): D64.9 - ANEMIA, UNSPECIFIED Status: Acute Priority: High Current Visit: Yes (2) Pneumonia SNOMED Code(s): 653165852 Code(s): J18.9 - PNEUMONIA, UNSPECIFIED ORGANISM Status: Acute Priority: High Current Visit: Yes - Problem List Review Problem List Initiated/Reviewed/Updated: Yes - My Orders Last 24 Hours: My Active Orders 09/24/21 14:57 Admission Status [Patient Status] [ADT] Routine 09/24/21 20:00 Simvastatin [Zocor] 10 mg PO BEDTIME 09/25/21 10:45 Azithromycin [Zithromax] 500 mg PO Q24H levoFLOXacin [Levaquin] 500 mg PO Q24H 09/26/21 05:11 CBC WITH AUTO DIFF [HEME] AM - Assessment Assessment:: 1. Anemia 2. Pneumonia - Plan Plan:: 1. Change to oral antibiotics and dc IV 2. supplemental oxygen as needed to keep saturation greater than 92%. 3. Recheck hemoglobin on 09/26. 4. Diet and activity as tolerated. 5. Discharge 09/26 pending labs
[2021-09-25] MEDS: Levofloxacin 500 MG Tab PO SCH (11:22)
[2021-09-25] MEDS: Azithromycin 500 MG Tab PO SCH (11:22)
[2021-09-25] MEDS: LOSARTAN 50 MG PO SCH (19:48)
[2021-09-25] MEDS: Simvastatin 10 MG Tab PO SCH (19:49)
[2021-09-26] MEDS: Levothyroxine 88 MCG Tab **OWN MED PO SCH (06:33)
[2021-09-26] MEDS: Pantoprazole 40 MG Tab.CR PO SCH (06:33)
[2021-09-26] MEDS: Levothyroxine 100 MCG Tab **OWN MED PO SCH (06:34)
[2021-09-26] MEDS: Diltiazem 120 MG Cap.CD PO SCH (08:18)
[2021-09-26] MEDS: Docusate Sodium 250 MG Cap PO SCH (08:18)
[2021-09-26] MEDS: Venlafaxine 75 MG Cap.ER **OWN MED PO SCH (08:18)
[2021-09-26] MEDS: Venlafaxine 150 MG Cap.ER **OWN MED PO SCH (08:18)
[2021-09-26] MEDS: Ferrous Sulfate 325 MG Tab PO SCH (08:19)
[2021-09-26] MEDS: Gabapentin 300 MG Cap PO SCH (08:19)
[2021-09-26] MEDS: Levofloxacin 500 MG Tab PO SCH (10:36)
[2021-09-26] MEDS: Azithromycin 500 MG Tab PO SCH (10:36)
--- NOTE | 2021-09-26 10:53 | PCM.DCSUM1 ---
Discharge Summary - Hospital Course Free Text/Narrative:: This patient was admitted from the ER for anemia and pneumonia. Her hemoglobin has rebounded to 8.5 today and is up slightly over her last measurement suggesting she is again making some hemoglobin herself. Her pneumonia has cleared some and her breath sounds are much better. She does request discharge today. Brief History: Admitted to inpatient for anemia and pneumonia. She has been treated with transfusion of 4 units packed cells and IV antibiotics. She was transitioned to oral medications yesterday and is tolerating those well. Diagnosis: Stroke: No - Discharge Data Discharge Date: 09/26/21 Discharge Disposition: Home, Self-Care 01 Condition: Good - Referral to Home Health Primary Care Physician: PCP Unknown - Discharge Diagnosis/Problem(s) (1) Anemia SNOMED Code(s): 601261374 ICD Code: D64.9 - ANEMIA, UNSPECIFIED Status: Acute Priority: High Current Visit: Yes Qualifiers: Anemia type: due to chronic kidney disease Chronic kidney disease stage: unspecified stage Qualified Code(s): N18.9 - Chronic kidney disease, unspecified; D63.1 - Anemia in chronic kidney disease (2) Pneumonia SNOMED Code(s): 633232257 ICD Code: J18.9 - PNEUMONIA, UNSPECIFIED ORGANISM Status: Acute Priority: High Current Visit: Yes Qualifiers: Pneumonia type: due to unspecified organism Laterality: bilateral Lung location: lower lobe of lung Qualified Code(s): J18.9 - Pneumonia, unspecified organism - Patient Instructions Diet: Renal Diet Notify Provider of: Fever, Increased Pain, Nausea and/or Vomiting - Discharge Plan *PRESCRIPTION DRUG MONITORING PROGRAM REVIEWED*: Not Applicable *COPY OF PRESCRIPTION DRUG MONITORING REPORT IN PATIENT BELINDA: Not Applicable Home Medications: Home Meds Gabapentin 300 mg PO TID 12/21/14 [History] Omeprazole 20 mg PO DAILY 12/21/14 [History] Simvastatin 40 mg PO DAILY 12/21/14 [History] fentaNYL [Fentanyl] 25 mcg TRDERM Q72H 12/21/14 [History] Losartan [Cozaar] 50 mg PO BEDTIME 01/22/17 [History] dilTIAZem HCL [Taztia Xt] 360 mg PO DAILY 01/22/17 [History] Sennosides/Docusate Sodium [Senna Plus Tablet] 1 - 2 tab PO BID 12/15/17 [History] Acetaminophen [Tylenol Arthritis Pain] 650 mg PO TID PRN tab.er 12/16/17 [Rx] Docusate Sodium [DOK] 250 mg PO BID cap 12/16/17 [Rx] Venlafaxine [Effexor XR] 150 mg PO DAILY cap.er 12/16/17 [Rx] Ferrous Sulfate 325 mg PO BIDMEALS 09/23/21 [History] Levothyroxine [Synthroid] 88 mcg PO ACBREAKFAST 09/23/21 [History] Levothyroxine [Synthroid] 100 mcg PO ACBREAKFAST 09/23/21 [History] Venlafaxine HCl [Venlafaxine ER] 75 mg PO DAILY 09/23/21 [History] Azithromycin [Zithromax] 500 mg PO DAILY 5 Days #5 tab 09/26/21 [Rx] levoFLOXacin [Levaquin] 500 mg PO DAILY 5 Days #5 tab 09/26/21 [Rx] Patient Handouts: Azithromycin tablets, Levofloxacin tablets, Community- Acquired Pneumonia, Adult, [id number] - Discharge Summary/Plan Comment DC Time >30 min.: Yes Total # of Minutes for Discharge Time: 29 - General Info Date of Service: 09/26/21 Admission Dx/Problem (Free Text: Admission Diagnosis/Problem Anemia Pneumonia Subjective Update: Patient had a very good night with vital signs that are stable. She has not had fever. She denies all pain. She is taking a full diet and tolerating that well. She is drinking fluids well. She denies cough or shortness of breath. She has not required any oxygen in the past 48 hours. Functional Status: Reports: Tolerating Diet, Ambulating, Urinating - Review of Systems General: Reports: No Symptoms HEENT: Reports: No Symptoms Pulmonary: Reports: No Symptoms Cardiovascular: Reports: No Symptoms Gastrointestinal: Reports: No Symptoms Genitourinary: Reports: No Symptoms Musculoskeletal: Reports: No Symptoms Skin: Reports: No Symptoms Neurological: Reports: No Symptoms Psychiatric: Reports: No Symptoms - Patient Data Vitals - Most Recent: Last Vital Signs Temp 36.7 C 09/26/21 08:00 Pulse 84 09/26/21 08:18 Resp 18 09/26/21 08:00 BP 143/60 H 09/26/21 08:18 Pulse Ox 100 09/26/21 08:00 Weight - Most Recent: 98.883 kg I&O - Last 24 hours: Intake & Output 09/25/21 09/26/21 09/26/21 22:59 06:59 14:59 Intake Total 1200 350 Output Total 700 Balance 500 350 Lab Results - Last 24 hrs: Laboratory Results - last 24 hr 09/26/21 Range/Units 05:11 WBC 8.1 D (4.0-11.0) K/uL RBC 3.38 L (3.80-5.80) M/uL Hgb 8.5 L (11.5-16.5) g/dL Hct 28.1 L (37.0-47.0) % MCV 83 (76-96) fL MCH 25.1 L (27.0-32.0) pg MCHC 30.2 L (31.0-35.0) g/dL RDW 20.4 H (11.0-16.0) % Plt Count 219 D (150-500) K/uL MPV 10.5 H (6.0-10.0) fL Neut % (Auto) 68.9 (45.0-70.0) % Lymph % (Auto) 11.2 L (20.0-40.0) % Gordon % (Auto) 12.4 H (3.0-10.0) % Eos % (Auto) 7.1 H (1.0-5.0) % Baso % (Auto) 0.4 (0.0-0.5) % Neut # (Auto) 5.60 (2.00-7.50) K/uL Lymph # (Auto) 0.91 L (1.50-4.00) K/uL Gordon # (Auto) 1.01 H (0.20-0.80) K/uL Eos # (Auto) 0.58 H (0.04-0.40) K/uL Baso # (Auto) 0.03 (0.02-0.10) K/uL TEMO Results - Last 24 hrs: Microbiology 09/23/21 15:41 MRSA Surveillance Culture - Final Nares, Left NO MRSA ISOLATED Med Orders - Current: Current Medications Acetaminophen (Acetaminophen 325 Mg Tab) 650 mg PO Q4H PRN PRN Reason: Pain (Mild 1-3)/fever Last Admin: 09/23/21 23:54 Dose: 650 mg Documented by: Azithromycin (Azithromycin 500 Mg Tab) 500 mg PO Q24H [facility] Stop: 09/29/21 23:59 Last Admin: 09/26/21 10:36 Dose: 500 mg Documented by: Diltiazem HCl (Diltiazem 120 Mg Cap.Cd) 360 mg PO DAILY [facility] Last Admin: 09/26/21 08:18 Dose: 360 mg Documented by: Docusate Sodium (Docusate Sodium 250 Mg Cap) 500 mg PO BID [facility] Last Admin: 09/26/21 08:18 Dose: 500 mg Documented by: Fentanyl (Fentanyl 25 Mcg/Hr Transdermal Patch) 25 mcg TRDERM Q72H [facility] Last Admin: 09/23/21 21:18 Dose: 25 mcg Documented by: Ferrous Sulfate (Ferrous Sulfate 325 Mg Tab) 325 mg PO BIDMEALS [facility] Last Admin: 09/26/21 08:19 Dose: 325 mg Documented by: Gabapentin (Gabapentin 300 Mg Cap) 300 mg PO DAILY [facility] Last Admin: 09/26/21 08:19 Dose: 300 mg Documented by: Levofloxacin (Levofloxacin 500 Mg Tab) 500 mg PO Q24H [facility] Stop: 09/29/21 23:59 Last Admin: 09/26/21 10:36 Dose: 500 mg Documented by: Levothyroxine Sodium (Levothyroxine 88 Mcg Tab Own Med) 88 mcg PO ACBREAKFAST [facility] Last Admin: 09/26/21 06:33 Dose: 88 mcg Documented by: Levothyroxine Sodium (Levothyroxine 100 Mcg Tab Own Med) 100 mcg PO ACBREAKFAST [facility] Last Admin: 09/26/21 06:34 Dose: 100 mcg Documented by: Losartan Potassium (Losartan 50 Mg Tab Pt Own Med) 50 mg PO BEDTIME [facility] Last Admin: 09/25/21 19:48 Dose: 50 mg Documented by: Pantoprazole Sodium (Pantoprazole 40 Mg Tab.Cr) 40 mg PO ACBREAKFAST [facility] Last Admin: 09/26/21 06:33 Dose: 40 mg Documented by: Simvastatin (Simvastatin 10 Mg Tab) 10 mg PO BEDTIME [facility] Last Admin: 09/25/21 19:49 Dose: 10 mg Documented by: Venlafaxine HCl (Venlafaxine 150 Mg Cap.Er Own Med) 150 mg PO DAILY [facility] Last Admin: 09/26/21 08:18 Dose: 150 mg Documented by: Venlafaxine HCl (Venlafaxine 75 Mg Cap.Er Own Med) 75 mg PO DAILY [facility] Last Admin: 09/26/21 08:18 Dose: 75 mg Documented by: Discontinued Medications Acetaminophen (Acetaminophen 650 Mg Tab.Er) 650 mg PO TID PRN PRN Reason: ARTHRITIS Docusate Sodium (Docusate Sodium 250 Mg Cap) 250 mg PO BID [facility] Last Admin: 09/23/21 22:35 Dose: Not Given Documented by: Docusate Sodium (Docusate Sodium 250 Mg Cap) Confirm Administered Dose 500 mg .ROUTE .STK-MED ONE Stop: 09/23/21 21:33 Last Admin: 09/23/21 22:33 Dose: Not Given Documented by: Ferrous Sulfate (Ferrous Sulfate 325 Mg Tab) Confirm Administered Dose 325 mg .ROUTE .STK-MED ONE Stop: 09/23/21 21:34 Last Admin: 09/23/21 22:33 Dose: Not Given Documented by: Hydromorphone HCl (Hydromorphone 2 Mg/Ml Sdv) Confirm Administered Dose 2 mg .ROUTE .STK-MED ONE Stop: 09/23/21 10:37 Last Admin: 09/23/21 12:05 Dose: Not Given Documented by: Hydromorphone HCl (Hydromorphone 2 Mg/Ml Sdv) 1 mg IVPUSH ONETIME ONE Stop: 09/23/21 10:47 Last Admin: 09/23/21 10:35 Dose: 1 mg Documented by: Sodium Chloride (Normal Saline) 1,000 mls @ 999 mls/hr IV ASDIRECTED [facility] Ceftriaxone Sodium 1 gm/ (Sodium Chloride) 50 mls @ 100 mls/hr IV Q24H [facility] Last Admin: 09/24/21 16:28 Dose: 100 mls/hr Documented by: Azithromycin 500 mg/ Sodium (Chloride) 250 mls @ 250 mls/hr IV Q24H [facility] Last Admin: 09/24/21 15:28 Dose: 250 mls/hr Documented by: Losartan Potassium (Losartan 50 Mg Tab) Confirm Administered Dose 50 mg .ROUTE .STK-MED ONE Stop: 09/24/21 19:42 Last Admin: 09/24/21 19:49 Dose: Not Given Documented by: Morphine Sulfate (Morphine 2 Mg/Ml Syringe) 2 mg IVPUSH Q2H PRN PRN Reason: Pain (severe 7-10) Non-Formulary Medication (Fentanyl [Fentanyl]) 25 mcg TRDERM WEEKLY PRN PRN Reason: Other Non-Formulary Medication (Gabapentin [Gabapentin]) 300 mg PO TID [facility] Last Admin: 09/23/21 22:35 Dose: Not Given Documented by: Non-Formulary Medication (Simvastatin [Simvastatin]) 40 mg PO DAILY [facility] Ondansetron HCl (Ondansetron 4 Mg/2 Ml Sdv) 4 mg IVPUSH Q4H PRN PRN Reason: Nausea/Vomiting Ondansetron HCl (Ondansetron 4 Mg/2 Ml Sdv) Confirm Administered Dose 4 mg . ROUTE .STK-MED ONE Stop: 09/23/21 10:51 Last Admin: 09/23/21 12:06 Dose: Not Given Documented by: Ondansetron HCl (Ondansetron 4 Mg/2 Ml Sdv) 4 mg IVPUSH ONETIME ONE Stop: 09/23/21 10:48 Last Admin: 09/23/21 10:40 Dose: 4 mg Documented by: Senna/Docusate Sodium (Docusate Sodium/Sennosides 50-8.6 Mg Tab) 1 tab PO BID [facility] Last Admin: 09/23/21 22:35 Dose: Not Given Documented by: Senna/Docusate Sodium (Docusate Sodium/Sennosides 50-8.6 Mg Tab) 2 tab PO BID [facility] Last Admin: 09/23/21 22:36 Dose: Not Given Documented by: Simvastatin (Simvastatin 10 Mg Tab) 10 mg PO ONETIME ONE Stop: 09/24/21 01:20 Last Admin: 09/24/21 04:21 Dose: Not Given Documented by: Simvastatin (Simvastatin 10 Mg Tab) Confirm Administered Dose 10 mg .ROUTE .STK- MED ONE Stop: 09/24/21 19:55 Last Admin: 09/24/21 20:14 Dose: Not Given Documented by: Sodium Chloride (Sodium Chloride 0.9% 10 Ml Syringe) 10 ml FLUSH ASDIRECTED PRN PRN Reason: Keep Vein Open - Exam Quality Assessment: Denies: Supplemental Oxygen General: Reports: Alert, Oriented, Cooperative, No Acute Distress HEENT: Reports: Pupils Equal, Pupils Reactive, EOMI, Mucous Membr. Moist/[place] Neck: Reports: Supple Lungs: Reports: Clear to Auscultation, Normal Respiratory Effort Cardiovascular: Reports: Regular Rate, Regular Rhythm Back Exam: Reports: Normal Inspection Extremities: Normal Inspection Skin: Reports: Warm, Dry, Intact Neurological: Reports: No New Focal Deficit Psy/Mental Status: Reports: Alert, Normal Affect, Normal Mood
[2021-09-26 14:09] VITALS: BP 148/59; PULSE 85
== END 2021-09-26 12:20 | disposition home or self-care (01) | DRG 682 ==
LOC: LB.ED 09:28 → UNDOADMOB 12:36 → LB.MS 12:36 → OBSVTOIN 09-24 14:57
PROVIDERS: ADMIT Nurse Practitioner; ATTEND Nurse Practitioner
PROC: 30233N1 Transfusion of Nonautologous Red Blood Cells into Peripheral Vein, Percutaneous Approach (ICD-10-PCS; principal; 2021-09-24)
DX: D64.9 Anemia, unspecified (principal); I12.9 Hypertensive chronic kidney disease with stage 1 through stage 4 chronic kidney disease, or unspecified chronic kidney disease; H54.7 Unspecified visual loss; E78.00 Pure hypercholesterolemia, unspecified; I10 Essential (primary) hypertension; J18.9 Pneumonia, unspecified organism; Z88.8 Allergy status to other drugs, medicaments and biological substances; Z91.040 Latex allergy status; Z79.890 Hormone replacement therapy; D63.1 Anemia in chronic kidney disease; E78.5 Hyperlipidemia, unspecified; N18.9 Chronic kidney disease, unspecified; F32.A Depression, unspecified; Z96.653 Presence of artificial knee joint, bilateral; Z79.899 Other long term (current) drug therapy
CPT/HCPCS: 36415 ×2; 36430; 51702; 71045; 80048; 81003; 85025 ×2; 86850; 86900; 86901; 86920 ×2; 86922 ×2; 96374; 96375; 99285; A9270 ×14; J1170; J2405; P9016 ×4; 96365; G0378; J0456; J0696; J7050

== ENCOUNTER 2022-02-10 10:45 | Emergency (ER) | payer MEDICARE, BC ==
[2022-02-10 12:08] LABS: TROPONIN I HIGH SENSITIVITY 11.4 pg/ml (<=60.4)
[2022-02-10 12:40] VITALS: BP 167/63; PULSE 80
== END 2022-02-10 13:06 | disposition home or self-care (01) ==
LOC: LB.ED 10:45
DX: R42 Dizziness and giddiness (principal); I25.10 Atherosclerotic heart disease of native coronary artery without angina pectoris; E78.00 Pure hypercholesterolemia, unspecified; I12.9 Hypertensive chronic kidney disease with stage 1 through stage 4 chronic kidney disease, or unspecified chronic kidney disease; N18.9 Chronic kidney disease, unspecified; E03.9 Hypothyroidism, unspecified; Z91.040 Latex allergy status; Z88.8 Allergy status to other drugs, medicaments and biological substances; Z79.899 Other long term (current) drug therapy
CPT/HCPCS: 36415; 70450; 80053; 81003; 84484; 85025; 93005; 99282; 99284-25; A9270-GY

== ENCOUNTER 2022-06-04 17:08 | Emergency (ER) | payer MEDICARE, BC ==
[2022-06-04] MEDS: Morphine 2 MG/ML SYRINGE IM ONE (17:36)
[2022-06-04 19:17] VITALS: BP 178/80; PULSE 88
== END 2022-06-04 18:03 | disposition home or self-care (01) ==
LOC: LB.ED 17:08
DX: S52.234A Nondisplaced oblique fracture of shaft of right ulna, initial encounter for closed fracture (principal); S52.241A Displaced spiral fracture of shaft of ulna, right arm, initial encounter for closed fracture; I25.10 Atherosclerotic heart disease of native coronary artery without angina pectoris; E78.00 Pure hypercholesterolemia, unspecified; I12.9 Hypertensive chronic kidney disease with stage 1 through stage 4 chronic kidney disease, or unspecified chronic kidney disease; N18.9 Chronic kidney disease, unspecified; E03.9 Hypothyroidism, unspecified; K21.9 Gastro-esophageal reflux disease without esophagitis; Z91.040 Latex allergy status; Z88.8 Allergy status to other drugs, medicaments and biological substances; Z79.899 Other long term (current) drug therapy; W01.0XXA Fall on same level from slipping, tripping and stumbling without subsequent striking against object, initial encounter
CPT/HCPCS: 29125; 73090-RT; 96372; 99281; 99283; J2270

== ENCOUNTER 2023-02-28 13:31 | Emergency (ER) | payer BC, MEDICARE ==
[2023-02-28 18:27] VITALS: PULSE 92
[2023-02-28 20:54] VITALS: BP 164/62
== END 2023-02-28 20:50 | disposition home or self-care (01) ==
LOC: LB.ED 13:31
DX: Z51.89 Encounter for other specified aftercare (principal); I12.9 Hypertensive chronic kidney disease with stage 1 through stage 4 chronic kidney disease, or unspecified chronic kidney disease; N18.9 Chronic kidney disease, unspecified; D63.1 Anemia in chronic kidney disease; I25.10 Atherosclerotic heart disease of native coronary artery without angina pectoris; E78.00 Pure hypercholesterolemia, unspecified; E03.9 Hypothyroidism, unspecified; E66.9 Obesity, unspecified; Z91.040 Latex allergy status; Z88.8 Allergy status to other drugs, medicaments and biological substances; Z79.899 Other long term (current) drug therapy; Z68.43 Body mass index [BMI] 50.0-59.9, adult
CPT/HCPCS: 36415; 36430; 86850; 86900; 86901; 86920; 86922; 99284; P9016

== ENCOUNTER 2023-03-09 08:40 | Emergency (ER) | payer MEDICARE, BC ==
[2023-03-09 10:22] LABS: MEAN CORPUSCULAR HEMOGLOBIN 25.1 pg (27.0-32.0); MEAN CORPUSCULAR HGB CONC 28.2 g/dL (31.0-35.0); MEAN PLATELET VOLUME 9.7 fL (6.0-10.0); RED BLOOD CELL COUNT 1.99 M/uL (3.80-5.80); RED CELL DISTRIBUTION WIDTH 15.9 % (11.0-16.0); WHITE BLOOD CELL COUNT,WBC 7.9 K/uL (4.0-11.0)
[2023-03-09 10:25] LABS: HEMATOCRIT 17.7 % (37.0-47.0)
[2023-03-09 10:39] LABS: ANION GAP 10.4 mmol/L (5.0-15.0); BLOOD UREA NITROGEN,BUN 26 mg/dL (8-26); BUN/CREATININE RATIO 14.1 (6-25); CALCIUM 8.8 mg/dL (8.5-10.1); CARBON DIOXIDE,CO2 27.4 mmol/L (21.0-32.0); CHLORIDE,CL 108 mmol/L (98-107); CREATININE 1.85 mg/dL (0.55-1.02); ESTIMATED GFR 27 mL/min (>60); GLUCOSE RANDOM 119 mg/dL (74-100); MAGNESIUM 2.3 mg/dL (1.8-2.4); PHOSPHORUS 3.7 mg/dL (2.5-4.9); POTASSIUM,K 4.8 mmol/L (3.5-5.1); SODIUM,NA 141 mmol/L (136-145)
[2023-03-09 14:34] VITALS: BP 145/54; PULSE 80
== END 2023-03-09 14:34 | disposition home or self-care (01) ==
LOC: LB.ED 08:40
DX: I12.9 Hypertensive chronic kidney disease with stage 1 through stage 4 chronic kidney disease, or unspecified chronic kidney disease (principal); N18.9 Chronic kidney disease, unspecified; D63.1 Anemia in chronic kidney disease; E78.00 Pure hypercholesterolemia, unspecified; E03.9 Hypothyroidism, unspecified; E66.9 Obesity, unspecified; Z79.899 Other long term (current) drug therapy; Z91.048 Other nonmedicinal substance allergy status; Z88.8 Allergy status to other drugs, medicaments and biological substances; Z91.040 Latex allergy status
CPT/HCPCS: 36415; 36430; 80048; 83735; 84100; 85027; 86850; 86900; 86901; 86920; 86922; 99284; P9016

== ENCOUNTER 2023-03-20 12:49 | Emergency (ER) | payer MEDICARE, BC ==
[2023-03-20 13:59] LABS: BASOPHILS ABSOLUTE AUTO 0.04 K/uL (0.02-0.10); BASOPHILS PERCENT AUTO 0.5 % (0.0-0.5); EOSINOPHILS ABSOLUTE AUTO 0.23 K/uL (0.04-0.40); EOSINOPHILS PERCENT AUTO 3.1 % (1.0-5.0); LYMPHOCYTES PERCENT AUTO 16.3 % (20.0-40.0); MEAN CORPUSCULAR HEMOGLOBIN 23.8 pg (27.0-32.0); MEAN CORPUSCULAR HGB CONC 27.5 g/dL (31.0-35.0); MEAN CORPUSCULAR VOLUME 87 fL (76-96); MEAN PLATELET VOLUME 9.6 fL (6.0-10.0); MONOCYTES PERCENT AUTO 8.1 % (3.0-10.0); NEUTROPHILS ABSOLUTE AUTO 5.31 K/uL (2.00-7.50); PLATELET COUNT,PLT 234 K/uL (150-500); RED CELL DISTRIBUTION WIDTH 16.3 % (11.0-16.0); WHITE BLOOD CELL COUNT,WBC 7.4 K/uL (4.0-11.0)
[2023-03-20 14:05] LABS: HEMATOCRIT 18.2 % (37.0-47.0)
[2023-03-20 14:20] LABS: A/G RATIO 0.9 (0.8-2.0); ALBUMIN 2.9 g/dL (3.4-5.0); ANION GAP 10.8 mmol/L (5.0-15.0); BILIRUBIN TOTAL 0.2 mg/dL (0.0-1.0); BUN/CREATININE RATIO 13.8 (6-25); CARBON DIOXIDE,CO2 28.8 mmol/L (21.0-32.0); CREATININE 1.89 mg/dL (0.55-1.02); EST CRCL DRUG DOSING (CG) 18.78 mL/min; POTASSIUM,K 4.6 mmol/L (3.5-5.1); PROTEIN TOTAL,TP 6.2 g/dL (6.4-8.2)
[2023-03-20 21:18] VITALS: BP 172/57; PULSE 87
== END 2023-03-20 21:43 | disposition home or self-care (01) ==
LOC: LB.ED 12:49
DX: D63.1 Anemia in chronic kidney disease (principal); N18.9 Chronic kidney disease, unspecified; E78.00 Pure hypercholesterolemia, unspecified; I10 Essential (primary) hypertension; E03.9 Hypothyroidism, unspecified; E66.9 Obesity, unspecified; Z68.39 Body mass index [BMI] 39.0-39.9, adult; Z91.048 Other nonmedicinal substance allergy status; Z91.040 Latex allergy status; Z88.8 Allergy status to other drugs, medicaments and biological substances; Z79.899 Other long term (current) drug therapy
CPT/HCPCS: 36415; 36430; 80053; 85025; 86850; 86900; 86901; 86920; 86922; 99284; P9016

== ENCOUNTER 2023-04-08 11:10 | Emergency (ER) | payer MEDICARE, BC ==
[2023-04-08 21:22] VITALS: PULSE 98
[2023-04-08 22:13] VITALS: BP 154/72
== END 2023-04-08 22:05 | disposition home or self-care (01) ==
LOC: LB.ED 11:10
DX: Z01.83 Encounter for blood typing (principal); E78.00 Pure hypercholesterolemia, unspecified; I10 Essential (primary) hypertension; Z91.040 Latex allergy status; Z88.8 Allergy status to other drugs, medicaments and biological substances; Z79.899 Other long term (current) drug therapy
CPT/HCPCS: 36415; 36430; 86850; 86900; 86901; 86920; 86922; 99283; P9016

== ENCOUNTER 2023-04-26 10:21 | Observation (INO) | payer MEDICARE, BC ==
[2023-04-26] MEDS ORDERED: Sodium Chloride 0.9% 10 ML Syringe FLUSH PRN (10:51)
[2023-04-26 11:04] LABS: BASOPHILS ABSOLUTE AUTO 0.03 K/uL (0.02-0.10); BASOPHILS PERCENT AUTO 0.4 % (0.0-0.5); EOSINOPHILS ABSOLUTE AUTO 0.37 K/uL (0.04-0.40); EOSINOPHILS PERCENT AUTO 5.1 % (1.0-5.0); HEMATOCRIT 20.4 % (37.0-47.0); LYMPHOCYTES PERCENT AUTO 9.7 % (20.0-40.0); MEAN CORPUSCULAR HEMOGLOBIN 22.8 pg (27.0-32.0); MEAN CORPUSCULAR HGB CONC 27.5 g/dL (31.0-35.0); MEAN CORPUSCULAR VOLUME 83 fL (76-96); MEAN PLATELET VOLUME 10.1 fL (6.0-10.0); MONOCYTES ABSOLUTE AUTO 0.63 K/uL (0.20-0.80); MONOCYTES PERCENT AUTO 8.8 % (3.0-10.0); NEUTROPHILS ABSOLUTE AUTO 5.47 K/uL (2.00-7.50); PLATELET COUNT,PLT 295 K/uL (150-500); RED BLOOD CELL COUNT 2.46 M/uL (3.80-5.80); RED CELL DISTRIBUTION WIDTH 18.6 % (11.0-16.0); WHITE BLOOD CELL COUNT,WBC 7.2 K/uL (4.0-11.0)
[2023-04-26 11:06] LABS: HEMOGLOBIN 5.6 g/dL (11.5-16.5)
[2023-04-26 11:20] LABS: A/G RATIO 1.1 (0.8-2.0); BILIRUBIN TOTAL 0.2 mg/dL (0.0-1.0); BUN/CREATININE RATIO 15.4 (6-25); CALCIUM 8.3 mg/dL (8.5-10.1); CARBON DIOXIDE,CO2 25.6 mmol/L (21.0-32.0); CREATININE 2.99 mg/dL (0.55-1.02); EST CRCL DRUG DOSING (CG) 11.87 mL/min; POTASSIUM,K 5.6 mmol/L (3.5-5.1); PROTEIN TOTAL,TP 5.7 g/dL (6.4-8.2)
[2023-04-26] MEDS ORDERED: Sodium Chloride 0.9% 1,000 ML IV SCH (11:45)
[2023-04-26] MEDS ORDERED: Acetaminophen 650 MG Tab.ER PO PRN (11:47)
[2023-04-26] MEDS ORDERED: fentaNYL 25 MCG/HR Transdermal Patch TRDERM SCH (12:00)
[2023-04-26] MEDS ORDERED: Venlafaxine 75 MG Cap.ER PO ONE (13:00)
[2023-04-26] MEDS ORDERED: Venlafaxine 150 MG Cap.ER PO ONE (13:00)
[2023-04-26] MEDS: Gabapentin 300 MG Cap PO SCH ×2 (13:13→19:28)
[2023-04-26] MEDS: Omeprazole 20 MG Cap.CR PO SCH (19:27)
[2023-04-26] MEDS: Sennosides/Docusate Sodium 50-8.6 MG Tab PO SCH (19:27)
[2023-04-26] MEDS ORDERED: Melatonin 10 MG Cap PO SCH (20:00)
[2023-04-26] MEDS ORDERED: Losartan 50 MG Tab PO SCH (20:00)
[2023-04-27 00:07] LABS: BASOPHILS ABSOLUTE AUTO 0.03 K/uL (0.02-0.10); BASOPHILS PERCENT AUTO 0.4 % (0.0-0.5); EOSINOPHILS ABSOLUTE AUTO 0.33 K/uL (0.04-0.40); EOSINOPHILS PERCENT AUTO 4.6 % (1.0-5.0); HEMATOCRIT 24.3 % (37.0-47.0); HEMOGLOBIN 7.3 g/dL (11.5-16.5); LYMPHOCYTES ABSOLUTE AUTO 1.23 K/uL (1.50-4.00); LYMPHOCYTES PERCENT AUTO 17.3 % (20.0-40.0); MEAN CORPUSCULAR HEMOGLOBIN 25.2 pg (27.0-32.0); MEAN CORPUSCULAR VOLUME 84 fL (76-96); MEAN PLATELET VOLUME 9.3 fL (6.0-10.0); MONOCYTES ABSOLUTE AUTO 0.73 K/uL (0.20-0.80); MONOCYTES PERCENT AUTO 10.3 % (3.0-10.0); NEUTROPHILS PERCENT AUTO 67.4 % (45.0-70.0); PLATELET COUNT,PLT 233 K/uL (150-500); RED CELL DISTRIBUTION WIDTH 18.1 % (11.0-16.0); WHITE BLOOD CELL COUNT,WBC 7.1 K/uL (4.0-11.0)
[2023-04-27 00:27] LABS: ALBUMIN 2.8 g/dL (3.4-5.0); ANION GAP 14.1 mmol/L (5.0-15.0); BILIRUBIN TOTAL 0.4 mg/dL (0.0-1.0); CALCIUM 8.3 mg/dL (8.5-10.1); CARBON DIOXIDE,CO2 26.1 mmol/L (21.0-32.0); CREATININE 2.63 mg/dL (0.55-1.02); EST CRCL DRUG DOSING (CG) 13.49 mL/min; POTASSIUM,K 5.2 mmol/L (3.5-5.1); PROTEIN TOTAL,TP 5.7 g/dL (6.4-8.2)
[2023-04-27] MEDS ORDERED: Levothyroxine 88 MCG Tab PO SCH ×2 (07:00)
[2023-04-27] MEDS ORDERED: Levothyroxine 100 MCG Tab PO SCH ×2 (07:00)
[2023-04-27] MEDS: Omeprazole 20 MG Cap.CR PO SCH (07:04)
[2023-04-27 07:29] LABS: BASOPHILS ABSOLUTE AUTO 0.03 K/uL (0.02-0.10); BASOPHILS PERCENT AUTO 0.5 % (0.0-0.5); EOSINOPHILS ABSOLUTE AUTO 0.34 K/uL (0.04-0.40); EOSINOPHILS PERCENT AUTO 5.8 % (1.0-5.0); HEMOGLOBIN 7.1 g/dL (11.5-16.5); LYMPHOCYTES ABSOLUTE AUTO 1.06 K/uL (1.50-4.00); MEAN CORPUSCULAR HGB CONC 29.6 g/dL (31.0-35.0); MEAN CORPUSCULAR VOLUME 85 fL (76-96); MEAN PLATELET VOLUME 9.5 fL (6.0-10.0); MONOCYTES ABSOLUTE AUTO 0.61 K/uL (0.20-0.80); MONOCYTES PERCENT AUTO 10.4 % (3.0-10.0); NEUTROPHILS ABSOLUTE AUTO 3.85 K/uL (2.00-7.50); NEUTROPHILS PERCENT AUTO 65.3 % (45.0-70.0); PLATELET COUNT,PLT 207 K/uL (150-500); RED BLOOD CELL COUNT 2.84 M/uL (3.80-5.80); RED CELL DISTRIBUTION WIDTH 18.2 % (11.0-16.0); WHITE BLOOD CELL COUNT,WBC 5.9 K/uL (4.0-11.0)
[2023-04-27 07:51] LABS: A/G RATIO 0.9 (0.8-2.0); ALBUMIN 2.7 g/dL (3.4-5.0); BILIRUBIN TOTAL 0.3 mg/dL (0.0-1.0); BUN/CREATININE RATIO 15.6 (6-25); CALCIUM 8.4 mg/dL (8.5-10.1); CREATININE 2.37 mg/dL (0.55-1.02); EST CRCL DRUG DOSING (CG) 14.97 mL/min; PROTEIN TOTAL,TP 5.6 g/dL (6.4-8.2)
[2023-04-27] MEDS ORDERED: Diltiazem 180 MG Cap.CD PO SCH (08:00)
[2023-04-27] MEDS ORDERED: Simvastatin 40 MG Tab PO SCH ×2 (08:00→20:00)
[2023-04-27] MEDS ORDERED: Venlafaxine 75 MG Cap.ER PO SCH ×2 (08:00)
[2023-04-27] MEDS ORDERED: Venlafaxine 150 MG Cap.ER PO SCH ×2 (08:00)
[2023-04-27] MEDS: Sennosides/Docusate Sodium 50-8.6 MG Tab PO SCH (08:01)
[2023-04-27] MEDS: Gabapentin 300 MG Cap PO SCH (08:01)
[2023-04-27 09:28] VITALS: BP 126/51; PULSE 91
[2023-04-28] MEDS ORDERED: fentaNYL 25 MCG/HR Transdermal Patch TRDERM SCH (09:00)
== END 2023-04-27 10:05 | disposition home or self-care (01) ==
LOC: LB.ED 10:21 → UNDOADMOB 11:30 → LB.MS 11:30 → UNDODISOB 04-27 10:05
PROVIDERS: ADMIT Nurse Practitioner Family; ATTEND Nurse Practitioner Family
DX: K62.5 Hemorrhage of anus and rectum (principal); K64.9 Unspecified hemorrhoids; K60.2 Anal fissure, unspecified; E78.00 Pure hypercholesterolemia, unspecified; N18.9 Chronic kidney disease, unspecified; D63.1 Anemia in chronic kidney disease; I10 Essential (primary) hypertension; K21.9 Gastro-esophageal reflux disease without esophagitis; E03.9 Hypothyroidism, unspecified; Z79.890 Hormone replacement therapy; Z79.899 Other long term (current) drug therapy; Z96.659 Presence of unspecified artificial knee joint; Z88.8 Allergy status to other drugs, medicaments and biological substances; Z91.040 Latex allergy status
CPT/HCPCS: 36415; 36430; 80053; 85025; 86850; 86900; 86901; 86920; 86922; 93005; 93010; 99222; 99238; 99284; A9270-GY; G0378; J7030; P9016

== ENCOUNTER 2023-05-16 16:52 | Emergency (ER) | payer MEDICARE, BC ==
[2023-05-16 17:45] LABS: HEMATOCRIT 20.8 % (37.0-47.0); MEAN CORPUSCULAR HEMOGLOBIN 23.7 pg (27.0-32.0); MEAN CORPUSCULAR HGB CONC 27.9 g/dL (31.0-35.0); MEAN CORPUSCULAR VOLUME 85 fL (76-96); MEAN PLATELET VOLUME 9.8 fL (6.0-10.0); PLATELET COUNT,PLT 277 K/uL (150-500); RED BLOOD CELL COUNT 2.45 M/uL (3.80-5.80); RED CELL DISTRIBUTION WIDTH 18.2 % (11.0-16.0); WHITE BLOOD CELL COUNT,WBC 10.5 K/uL (4.0-11.0)
[2023-05-16 17:47] LABS: HEMOGLOBIN 5.8 g/dL (11.5-16.5)
[2023-05-16 18:04] LABS: PTT,PARTIAL THROMBOPLSTIN TIME 23.1 SECONDS (24.4-33.2)
[2023-05-16 18:08] LABS: A/G RATIO 0.8 (0.8-2.0); ALBUMIN 2.9 g/dL (3.4-5.0); ANION GAP 11.1 mmol/L (5.0-15.0); BILIRUBIN TOTAL 0.2 mg/dL (0.0-1.0); BUN/CREATININE RATIO 14.6 (6-25); CALCIUM 9.2 mg/dL (8.5-10.1); CARBON DIOXIDE,CO2 28.4 mmol/L (21.0-32.0); CREATININE 1.92 mg/dL (0.55-1.02); EST CRCL DRUG DOSING (CG) 18.48 mL/min; POTASSIUM,K 4.5 mmol/L (3.5-5.1); PROTEIN TOTAL,TP 6.5 g/dL (6.4-8.2); PROTHROMBIN TIME 10.1 sec (9.0-11.5); TROPONIN I HIGH SENSITIVITY 17.1 pg/ml (<=60.4)
[2023-05-17 00:24] VITALS: PULSE 84
[2023-05-17 01:00] VITALS: BP 169/62
== END 2023-05-17 00:40 | disposition home or self-care (01) ==
LOC: LB.ED 16:52
DX: K62.5 Hemorrhage of anus and rectum (principal); D64.9 Anemia, unspecified; E78.00 Pure hypercholesterolemia, unspecified; I10 Essential (primary) hypertension; K21.9 Gastro-esophageal reflux disease without esophagitis; E66.9 Obesity, unspecified; Z88.8 Allergy status to other drugs, medicaments and biological substances; Z88.1 Allergy status to other antibiotic agents; Z91.040 Latex allergy status; Z91.09 Other allergy status, other than to drugs and biological substances; Z79.899 Other long term (current) drug therapy; Z95.5 Presence of coronary angioplasty implant and graft; Z68.41 Body mass index [BMI] 40.0-44.9, adult
CPT/HCPCS: 36415; 36430; 80053; 84484; 85025; 85610; 85730; 86850; 86900; 86901; 86920; 86922; 93005; 93010; 99283; P9016

== ENCOUNTER 2023-06-03 13:20 | Emergency (ER) | payer MEDICARE, BC ==
[2023-06-03 13:51] LABS: BASOPHILS ABSOLUTE AUTO 0.03 K/uL (0.02-0.10); BASOPHILS PERCENT AUTO 0.4 % (0.0-0.5); EOSINOPHILS ABSOLUTE AUTO 0.18 K/uL (0.04-0.40); EOSINOPHILS PERCENT AUTO 2.6 % (1.0-5.0); HEMATOCRIT 24.4 % (37.0-47.0); LYMPHOCYTES ABSOLUTE AUTO 0.93 K/uL (1.50-4.00); LYMPHOCYTES PERCENT AUTO 13.5 % (20.0-40.0); MEAN CORPUSCULAR HEMOGLOBIN 25.5 pg (27.0-32.0); MEAN CORPUSCULAR HGB CONC 28.3 g/dL (31.0-35.0); MEAN CORPUSCULAR VOLUME 90 fL (76-96); MEAN PLATELET VOLUME 10.5 fL (6.0-10.0); MONOCYTES ABSOLUTE AUTO 0.55 K/uL (0.20-0.80); NEUTROPHILS PERCENT AUTO 75.5 % (45.0-70.0); PLATELET COUNT,PLT 254 K/uL (150-500); RED BLOOD CELL COUNT 2.71 M/uL (3.80-5.80); RED CELL DISTRIBUTION WIDTH 20.4 % (11.0-16.0); WHITE BLOOD CELL COUNT,WBC 6.9 K/uL (4.0-11.0)
[2023-06-03 13:53] LABS: HEMOGLOBIN 6.9 g/dL (11.5-16.5)
[2023-06-03] MEDS ORDERED: Sodium Chloride 0.9% 10 ML Syringe FLUSH PRN (14:03)
[2023-06-03 14:11] LABS: A/G RATIO 0.8 (0.8-2.0); ALBUMIN 2.9 g/dL (3.4-5.0); ANION GAP 11.3 mmol/L (5.0-15.0); BILIRUBIN TOTAL 0.2 mg/dL (0.0-1.0); BUN/CREATININE RATIO 10.5 (6-25); CALCIUM 8.9 mg/dL (8.5-10.1); CARBON DIOXIDE,CO2 26.1 mmol/L (21.0-32.0); CREATININE 2.1 mg/dL (0.55-1.02); EST CRCL DRUG DOSING (CG) 16.9 mL/min; POTASSIUM,K 4.4 mmol/L (3.5-5.1); PROTEIN TOTAL,TP 6.4 g/dL (6.4-8.2)
[2023-06-03 20:32] VITALS: BP 117/105; PULSE 72
[2023-06-03 21:17] LABS: HEMATOCRIT 28.6 % (37.0-47.0); HEMOGLOBIN 8.4 g/dL (11.5-16.5)
== END 2023-06-03 22:30 | disposition home or self-care (01) ==
LOC: LB.ED 13:20
DX: D64.9 Anemia, unspecified (principal); E78.00 Pure hypercholesterolemia, unspecified; I10 Essential (primary) hypertension; Z91.040 Latex allergy status; Z88.8 Allergy status to other drugs, medicaments and biological substances; Z79.899 Other long term (current) drug therapy
CPT/HCPCS: 36415; 36430; 80053; 85014; 85018; 85025; 86850; 86900; 86901; 86920; 86922; 99284; P9016

== ENCOUNTER 2023-08-07 14:47 | Inpatient (IN) | payer MEDICARE, BC ==
[2023-08-07] MEDS ORDERED: Sodium Chloride 0.9% 10 ML Syringe FLUSH PRN (14:55)
[2023-08-07 15:24] LABS: HEMATOCRIT 26.9 % (37.0-47.0); MEAN CORPUSCULAR HEMOGLOBIN 28.8 pg (27.0-32.0); MEAN CORPUSCULAR HGB CONC 29.7 g/dL (31.0-35.0); MEAN PLATELET VOLUME 9.9 fL (6.0-10.0); RED BLOOD CELL COUNT 2.78 M/uL (3.80-5.80); RED CELL DISTRIBUTION WIDTH 19.2 % (11.0-16.0); WHITE BLOOD CELL COUNT,WBC 7.7 K/uL (4.0-11.0)
[2023-08-07] MEDS ORDERED: Metoprolol Tartrate 5 MG/5 ML SDV IVPUSH ONE (15:34)
[2023-08-07 15:48] LABS: PROTHROMBIN TIME 10.7 sec (9.0-11.5)
[2023-08-07 15:57] LABS: ALBUMIN 3.3 g/dL (3.4-5.0); ANION GAP 12.8 mmol/L (5.0-15.0); BILIRUBIN TOTAL 0.3 mg/dL (0.0-1.0); BUN/CREATININE RATIO 17.5 (6-25); CALCIUM 9.3 mg/dL (8.5-10.1); CARBON DIOXIDE,CO2 25.4 mmol/L (21.0-32.0); CREATININE 1.54 mg/dL (0.55-1.02); EST CRCL DRUG DOSING (CG) 23.04 mL/min; MAGNESIUM 2.2 mg/dL (1.8-2.4); PHOSPHORUS 2.5 mg/dL (2.5-4.9); POTASSIUM,K 5.2 mmol/L (3.5-5.1); PROTEIN TOTAL,TP 6.7 g/dL (6.4-8.2); TROPONIN I HIGH SENSITIVITY 12.3 pg/ml (<=60.4)
[2023-08-07] MEDS ORDERED: Heparin Sodium 5,000 Units/ML Vial IVPUSH ONE (16:21)
[2023-08-07] MEDS ORDERED: Heparin Sodium/D5W 500 ML ONE (16:25)
[2023-08-07] MEDS: Heparin Sodium/D5W 25,000 UNITS/500 ML BAG IV SCH (16:34)
[2023-08-07] MEDS: Diltiazem 100 MG in Sodium Chloride 0.9% 100 ML IV SCH (16:47)
[2023-08-07] MEDS: fentaNYL 25 MCG/HR Transdermal Patch TRDERM SCH (20:24)
[2023-08-07] MEDS: Gabapentin 300 MG Cap PO SCH (20:25)
[2023-08-07] MEDS: Acetaminophen 650 MG Tab.ER PO PRN (20:25)
[2023-08-07] MEDS: Melatonin 10 MG Cap PO SCH (20:26)
[2023-08-07] MEDS: Losartan 50 MG Tab PO SCH (20:26)
[2023-08-07] MEDS: Sennosides 8.6 MG Tab PO SCH (20:27)
[2023-08-07] MEDS: Omeprazole 20 MG Cap.CR PO SCH (20:27)
[2023-08-07] MEDS ORDERED: FLU (Fluad Quad) 2023-24(65UP)/MF59C/PF 60 MCG/0.5 ML Syringe IM ONE (20:45)
[2023-08-07] MEDS: Warfarin 5 MG Tab PO SCH (21:57)
[2023-08-08] MEDS: Diltiazem 100 MG in Sodium Chloride 0.9% 100 ML IV SCH ×2 (00:43→10:55)
[2023-08-08] MEDS ORDERED: Heparin Sodium 5,000 Units/ML Vial IVPUSH ONE ×2 (05:42→21:26)
[2023-08-08] MEDS: Levothyroxine 100 MCG Tab PO SCH (07:52)
[2023-08-08] MEDS: Gabapentin 300 MG Cap PO SCH ×3 (07:53→19:25)
[2023-08-08] MEDS: Venlafaxine 150 MG Cap.ER PO SCH (07:53)
[2023-08-08] MEDS: Omeprazole 20 MG Cap.CR PO SCH ×2 (07:53→19:26)
[2023-08-08] MEDS: Levothyroxine 88 MCG Tab PO SCH (07:53)
[2023-08-08] MEDS: Sennosides 8.6 MG Tab PO SCH ×2 (07:54→19:26)
[2023-08-08] MEDS: Simvastatin 40 MG Tab PO SCH (07:54)
[2023-08-08] MEDS: Venlafaxine 75 MG Cap.ER PO SCH (07:54)
[2023-08-08 10:52] LABS: ANION GAP 10.2 mmol/L (5.0-15.0); BUN/CREATININE RATIO 16.3 (6-25); CALCIUM 9.3 mg/dL (8.5-10.1); CARBON DIOXIDE,CO2 27.4 mmol/L (21.0-32.0); CREATININE 1.47 mg/dL (0.55-1.02); EST CRCL DRUG DOSING (CG) 24.14 mL/min; POTASSIUM,K 4.6 mmol/L (3.5-5.1)
[2023-08-08] MEDS: Furosemide 40 MG Tab PO SCH (11:35)
[2023-08-08] MEDS: Diltiazem 180 MG Cap.CD PO SCH (14:51)
[2023-08-08] MEDS: Warfarin 5 MG Tab PO SCH (17:40)
[2023-08-08] MEDS: Losartan 50 MG Tab PO SCH (19:24)
[2023-08-08] MEDS: Melatonin 10 MG Cap PO SCH (19:25)
[2023-08-08] MEDS: Heparin Sodium/D5W 25,000 UNITS/500 ML BAG IV SCH (19:32)
[2023-08-09] MEDS ORDERED: Metoprolol Tartrate 25 MG Tab PO SCH (07:15)
[2023-08-09] MEDS: Omeprazole 20 MG Cap.CR PO SCH ×2 (07:52→19:18)
[2023-08-09] MEDS: Metoprolol Tartrate 25 MG Tab PO SCH ×2 (07:52→19:19)
[2023-08-09] MEDS: Simvastatin 40 MG Tab PO SCH (07:53)
[2023-08-09] MEDS: Furosemide 40 MG Tab PO SCH (07:53)
[2023-08-09] MEDS: Diltiazem 180 MG Cap.CD PO SCH (07:54)
[2023-08-09] MEDS: Levothyroxine 100 MCG Tab PO SCH (07:54)
[2023-08-09] MEDS: Sennosides 8.6 MG Tab PO SCH ×2 (07:55→19:18)
[2023-08-09] MEDS: Gabapentin 300 MG Cap PO SCH ×3 (07:55→19:20)
[2023-08-09] MEDS: Venlafaxine 75 MG Cap.ER PO SCH (07:55)
[2023-08-09] MEDS: Venlafaxine 150 MG Cap.ER PO SCH (07:56)
[2023-08-09] MEDS: Levothyroxine 88 MCG Tab PO SCH (07:56)
[2023-08-09] MEDS ORDERED: Heparin Sodium 5,000 Units/ML Vial IVPUSH ONE (12:44)
[2023-08-09] MEDS: Warfarin 5 MG Tab PO SCH (17:00)
[2023-08-09] MEDS ORDERED: Furosemide 40 MG Tab PO SCH (17:00)
[2023-08-09] MEDS: Losartan 50 MG Tab PO SCH (19:19)
[2023-08-09] MEDS: Melatonin 10 MG Cap PO SCH (19:20)
[2023-08-10] MEDS: Heparin Sodium/D5W 25,000 UNITS/500 ML BAG IV SCH (02:16)
[2023-08-10] MEDS: Levothyroxine 100 MCG Tab PO SCH (07:47)
[2023-08-10] MEDS: Diltiazem 180 MG Cap.CD PO SCH (07:48)
[2023-08-10] MEDS: Levothyroxine 88 MCG Tab PO SCH (07:48)
[2023-08-10] MEDS: Metoprolol Tartrate 25 MG Tab PO SCH ×2 (07:48→19:15)
[2023-08-10] MEDS: Gabapentin 300 MG Cap PO SCH ×3 (07:49→19:14)
[2023-08-10] MEDS: Venlafaxine 75 MG Cap.ER PO SCH (07:49)
[2023-08-10] MEDS: Simvastatin 40 MG Tab PO SCH (07:50)
[2023-08-10] MEDS: Omeprazole 20 MG Cap.CR PO SCH ×2 (07:50→19:14)
[2023-08-10] MEDS: Venlafaxine 150 MG Cap.ER PO SCH (07:50)
[2023-08-10] MEDS: Sennosides 8.6 MG Tab PO SCH ×2 (07:50→19:12)
[2023-08-10] MEDS ORDERED: Furosemide 40 MG Tab PO SCH ×2 (08:00→14:00)
[2023-08-10 08:06] LABS: INR 2.3 (1.0-3.5)
[2023-08-10 08:09] LABS: PROTHROMBIN TIME 23.2 sec (9.0-11.5)
[2023-08-10 08:34] LABS: ANION GAP 11.3 mmol/L (5.0-15.0); BUN/CREATININE RATIO 12.4 (6-25); CALCIUM 9.7 mg/dL (8.5-10.1); CARBON DIOXIDE,CO2 29.9 mmol/L (21.0-32.0); CREATININE 1.77 mg/dL (0.55-1.02); EST CRCL DRUG DOSING (CG) 20.05 mL/min; POTASSIUM,K 4.2 mmol/L (3.5-5.1)
[2023-08-10] MEDS: Acetaminophen 650 MG Tab.ER PO PRN (09:55)
[2023-08-10] MEDS ORDERED: Warfarin 2.5 MG Tab PO SCH (18:00)
[2023-08-10] MEDS: fentaNYL 25 MCG/HR Transdermal Patch TRDERM SCH (18:52)
[2023-08-10] MEDS: Melatonin 10 MG Cap PO SCH (19:12)
[2023-08-10] MEDS: Losartan 50 MG Tab PO SCH (19:16)
[2023-08-11] MEDS: Venlafaxine 150 MG Cap.ER PO SCH (07:54)
[2023-08-11] MEDS: Diltiazem 180 MG Cap.CD PO SCH (07:54)
[2023-08-11] MEDS: Levothyroxine 100 MCG Tab PO SCH (07:55)
[2023-08-11] MEDS: Levothyroxine 88 MCG Tab PO SCH (07:55)
[2023-08-11] MEDS: Omeprazole 20 MG Cap.CR PO SCH (07:55)
[2023-08-11] MEDS: Venlafaxine 75 MG Cap.ER PO SCH (07:55)
[2023-08-11] MEDS: Gabapentin 300 MG Cap PO SCH (07:55)
[2023-08-11] MEDS: Metoprolol Tartrate 25 MG Tab PO SCH (07:55)
[2023-08-11] MEDS: Sennosides 8.6 MG Tab PO SCH (07:55)
[2023-08-11] MEDS: Simvastatin 40 MG Tab PO SCH (07:55)
[2023-08-11 07:56] VITALS: BP 154/71; PULSE 87
[2023-08-11] MEDS ORDERED: Furosemide 40 MG Tab PO SCH (08:00)
[2023-08-11 08:04] LABS: ANION GAP 9.2 mmol/L (5.0-15.0); BUN/CREATININE RATIO 12.7 (6-25); CALCIUM 9.5 mg/dL (8.5-10.1); CREATININE 1.73 mg/dL (0.55-1.02); EST CRCL DRUG DOSING (CG) 20.51 mL/min; POTASSIUM,K 4.2 mmol/L (3.5-5.1)
[2023-08-11 08:05] LABS: INR 2.4 (1.0-3.5)
[2023-08-11 08:21] LABS: PROTHROMBIN TIME 24.3 sec (9.0-11.5)
[2023-08-11 08:48] LABS: HEMATOCRIT 34.8 % (37.0-47.0); HEMOGLOBIN 10.2 g/dL (11.5-16.5); MEAN CORPUSCULAR HGB CONC 29.3 g/dL (31.0-35.0); RED BLOOD CELL COUNT 3.64 M/uL (3.80-5.80); RED CELL DISTRIBUTION WIDTH 17.9 % (11.0-16.0); WHITE BLOOD CELL COUNT,WBC 5.1 K/uL (4.0-11.0)
== END 2023-08-11 11:08 | disposition home or self-care (01) | DRG 308 ==
LOC: LB.ED 14:47 → LB.MS 17:40 → UNDOADMIN 18:11 → LB.MS 18:11
PROVIDERS: ADMIT Surgery; ATTEND Surgery
DX: I48.91 Unspecified atrial fibrillation (principal); I50.33 Acute on chronic diastolic (congestive) heart failure; J96.01 Acute respiratory failure with hypoxia; I13.0 Hypertensive heart and chronic kidney disease with heart failure and stage 1 through stage 4 chronic kidney disease, or unspecified chronic kidney disease; I25.10 Atherosclerotic heart disease of native coronary artery without angina pectoris; E78.00 Pure hypercholesterolemia, unspecified; M19.90 Unspecified osteoarthritis, unspecified site; M06.9 Rheumatoid arthritis, unspecified; G62.9 Polyneuropathy, unspecified; F32.A Depression, unspecified; E03.9 Hypothyroidism, unspecified; E66.9 Obesity, unspecified; Z96.659 Presence of unspecified artificial knee joint; N18.9 Chronic kidney disease, unspecified; D63.1 Anemia in chronic kidney disease; M54.50 Low back pain, unspecified; G89.29 Other chronic pain; Z95.5 Presence of coronary angioplasty implant and graft; Z91.040 Latex allergy status; Z88.8 Allergy status to other drugs, medicaments and biological substances; Z79.82 Long term (current) use of aspirin; Z79.899 Other long term (current) drug therapy; Z68.35 Body mass index [BMI] 35.0-35.9, adult; Z98.49 Cataract extraction status, unspecified eye; Z90.710 Acquired absence of both cervix and uterus; Z90.49 Acquired absence of other specified parts of digestive tract
CPT/HCPCS: 36415; 71045; 80048; 80053; 83735; 83880; 84100; 84443; 84484; 85027; 85610; 85730; 90694; 93005; 93010; 96365; 96368; 96375; 96376; 99223; 99232; 99233; 99239; 99285-25; A9270-GY; G0008; J1644; J3490

== ENCOUNTER 2023-09-04 11:30 | Emergency (ER) | payer MEDICARE, BC ==
[2023-09-04 12:11] VITALS: BP 111/46; PULSE 85
[2023-09-04 12:49] LABS: ANION GAP 14.4 mmol/L (5.0-15.0); BUN/CREATININE RATIO 16.6 (6-25); CARBON DIOXIDE,CO2 24.3 mmol/L (21.0-32.0); CREATININE 2.9 mg/dL (0.55-1.02); EST CRCL DRUG DOSING (CG) 12.24 mL/min; POTASSIUM,K 5.7 mmol/L (3.5-5.1)
[2023-09-04] MEDS ORDERED: Sodium Polystyrene Sulfonate 15 GM/60 ML Susp 60 ML Bot ONE (13:45)
[2023-09-04] MEDS: Sodium Polystyrene Sulfonate 15 GM/60 ML Susp 60 ML Bot PO SCH (13:46)
[2023-09-04] MEDS: Sodium Polystyrene Sulfonate 15 GM/60 ML Susp 60 ML Bot ONE (13:46)
== END 2023-09-04 13:52 | disposition home or self-care (01) ==
LOC: LB.ED 11:30
DX: E87.5 Hyperkalemia (principal); I48.91 Unspecified atrial fibrillation; I10 Essential (primary) hypertension; E78.00 Pure hypercholesterolemia, unspecified; M06.9 Rheumatoid arthritis, unspecified; E03.9 Hypothyroidism, unspecified; E66.9 Obesity, unspecified; Z68.36 Body mass index [BMI] 36.0-36.9, adult; Z91.040 Latex allergy status; Z91.048 Other nonmedicinal substance allergy status; Z88.8 Allergy status to other drugs, medicaments and biological substances; Z79.899 Other long term (current) drug therapy; Z79.82 Long term (current) use of aspirin; Z79.01 Long term (current) use of anticoagulants
CPT/HCPCS: 36415; 80048; 99284; A9270-GY

== ENCOUNTER 2023-09-28 23:25 | Emergency (ER) | payer MEDICARE, BC ==
[2023-09-28] MEDS ORDERED: Sodium Chloride 0.9% 10 ML Syringe FLUSH PRN (23:30)
[2023-09-29 00:04] LABS: BASOPHILS ABSOLUTE AUTO 0.03 K/uL (0.02-0.10); BASOPHILS PERCENT AUTO 0.3 % (0.0-0.5); EOSINOPHILS ABSOLUTE AUTO 0.02 K/uL (0.04-0.40); EOSINOPHILS PERCENT AUTO 0.2 % (1.0-5.0); HEMATOCRIT 26.1 % (37.0-47.0); HEMOGLOBIN 7.2 g/dL (11.5-16.5); LYMPHOCYTES ABSOLUTE AUTO 0.83 K/uL (1.50-4.00); LYMPHOCYTES PERCENT AUTO 8.7 % (20.0-40.0); MEAN CORPUSCULAR HEMOGLOBIN 23.8 pg (27.0-32.0); MEAN CORPUSCULAR HGB CONC 27.6 g/dL (31.0-35.0); MEAN CORPUSCULAR VOLUME 86 fL (76-96); MEAN PLATELET VOLUME 9.8 fL (6.0-10.0); MONOCYTES PERCENT AUTO 7.3 % (3.0-10.0); NEUTROPHILS ABSOLUTE AUTO 7.98 K/uL (2.00-7.50); NEUTROPHILS PERCENT AUTO 83.5 % (45.0-70.0); PLATELET COUNT,PLT 348 K/uL (150-500); RED BLOOD CELL COUNT 3.02 M/uL (3.80-5.80); RED CELL DISTRIBUTION WIDTH 16.8 % (11.0-16.0); WHITE BLOOD CELL COUNT,WBC 9.6 K/uL (4.0-11.0)
[2023-09-29 00:20] LABS: A/G RATIO 0.9 (0.8-2.0); ALBUMIN 3.3 g/dL (3.4-5.0); ANION GAP 17.2 mmol/L (5.0-15.0); BILIRUBIN TOTAL 0.6 mg/dL (0.0-1.0); BUN/CREATININE RATIO 9.8 (6-25); CALCIUM 8.9 mg/dL (8.5-10.1); CARBON DIOXIDE,CO2 22.6 mmol/L (21.0-32.0); EST CRCL DRUG DOSING (CG) 10.11 mL/min; MAGNESIUM 2.5 mg/dL (1.8-2.4); PROTEIN TOTAL,TP 6.9 g/dL (6.4-8.2)
[2023-09-29 00:22] LABS: CREATININE 3.67 mg/dL (0.55-1.02); POTASSIUM,K 6.8 mmol/L (3.5-5.1)
[2023-09-29] MEDS: Sodium Polystyrene Sulfonate 15 GM/60 ML Susp 60 ML Bot ONE (00:32)
[2023-09-29] MEDS: Sodium Polystyrene Sulfonate 15 GM/60 ML Susp 473 ML Bottle PO ONE (00:36)
[2023-09-29] MEDS: Calcium Gluconate 10% 1 GM/10 ML SDV IVPUSH ONE (01:18)
[2023-09-29] MEDS ORDERED: Glucagon,Human Recombinant 1 MG Vial IM PRN (01:19)
[2023-09-29] MEDS ORDERED: 50% Dextrose in Water 50 ML Syringe IVPUSH PRN (01:19)
[2023-09-29 01:25] LABS: O2 SATURATION ARTERIAL 52.9 % (95-98); PCO2 ARTERIAL 43.6 mmHg (35-45)
[2023-09-29 01:26] LABS: BASE EXCESS ARTERIAL -5.7 (-2-2); BICARBONATE,ARTERIAL 20.9 mmol/L (22-26)
[2023-09-29 01:27] LABS: PO2 ARTERIAL 31.3 mmHg (80-105)
[2023-09-29] MEDS: Insulin Regular, Human 100 Units/ML 3 ML Vial IV ONE (01:28)
[2023-09-29] MEDS: 50% Dextrose in Water 50 ML Syringe IVPUSH ONE (01:32)
[2023-09-29] MEDS: 50% Dextrose in Water 50 ML Syringe ONE (01:33)
[2023-09-29] MEDS: Calcium Gluconate 10% 1 GM/10 ML SDV ONE (01:34)
[2023-09-29] MEDS: Sodium Chloride 0.9% 1,000 ML IV SCH (04:22)
[2023-09-29 05:52] VITALS: BP 136/68; PULSE 76
[2023-09-29 06:44] LABS: BUN/CREATININE RATIO 9.8 (6-25); CALCIUM 9.1 mg/dL (8.5-10.1); CARBON DIOXIDE,CO2 24.5 mmol/L (21.0-32.0); EST CRCL DRUG DOSING (CG) 10.37 mL/min
[2023-09-29 06:49] LABS: CREATININE 3.58 mg/dL (0.55-1.02)
[2023-09-29 07:07] LABS: ANION GAP 14.2 mmol/L (5.0-15.0); POTASSIUM,K 4.7 mmol/L (3.5-5.1)
== END 2023-09-29 07:00 ==
LOC: LB.ED 23:25
DX: I11.0 Hypertensive heart disease with heart failure (principal); I50.9 Heart failure, unspecified; E87.5 Hyperkalemia; N17.9 Acute kidney failure, unspecified; D64.9 Anemia, unspecified; R09.02 Hypoxemia; E78.00 Pure hypercholesterolemia, unspecified; E03.9 Hypothyroidism, unspecified; E66.9 Obesity, unspecified; Z68.35 Body mass index [BMI] 35.0-35.9, adult; Z91.040 Latex allergy status; Z88.8 Allergy status to other drugs, medicaments and biological substances; Z79.899 Other long term (current) drug therapy; Z79.82 Long term (current) use of aspirin; Z90.710 Acquired absence of both cervix and uterus
CPT/HCPCS: 36415; 36430; 36600; 71045; 80048; 80053; 82803; 83735; 83880; 85025; 85610; 86850; 86900; 86901; 86920; 86922; 93005; 96361; 96374; 99285; A9270; J0612; J7030; P9016

== ENCOUNTER 2023-10-16 18:17 | Emergency (ER) | payer MEDICARE, BC ==
[2023-10-16] MEDS: Sodium Chloride 0.9% 1,000 ML IV ONE (19:05)
[2023-10-16 20:06] LABS: BASOPHILS ABSOLUTE AUTO 0.04 K/uL (0.02-0.10); BASOPHILS PERCENT AUTO 0.5 % (0.0-0.5); EOSINOPHILS ABSOLUTE AUTO 0.19 K/uL (0.04-0.40); EOSINOPHILS PERCENT AUTO 2.6 % (1.0-5.0); HEMOGLOBIN 9.1 g/dL (11.5-16.5); LYMPHOCYTES ABSOLUTE AUTO 1.37 K/uL (1.50-4.00); LYMPHOCYTES PERCENT AUTO 18.6 % (20.0-40.0); MEAN CORPUSCULAR HEMOGLOBIN 25.8 pg (27.0-32.0); MEAN CORPUSCULAR HGB CONC 30.3 g/dL (31.0-35.0); MEAN CORPUSCULAR VOLUME 85 fL (76-96); MEAN PLATELET VOLUME 10.8 fL (6.0-10.0); MONOCYTES ABSOLUTE AUTO 0.62 K/uL (0.20-0.80); MONOCYTES PERCENT AUTO 8.4 % (3.0-10.0); NEUTROPHILS ABSOLUTE AUTO 5.13 K/uL (2.00-7.50); NEUTROPHILS PERCENT AUTO 69.9 % (45.0-70.0); PLATELET COUNT,PLT 280 K/uL (150-500); RED BLOOD CELL COUNT 3.53 M/uL (3.80-5.80); RED CELL DISTRIBUTION WIDTH 17.3 % (11.0-16.0); WHITE BLOOD CELL COUNT,WBC 7.4 K/uL (4.0-11.0)
[2023-10-16 20:18] LABS: ANION GAP 12.9 mmol/L (5.0-15.0); BUN/CREATININE RATIO 19.5 (6-25); CALCIUM 8.9 mg/dL (8.5-10.1); CREATININE 2.56 mg/dL (0.55-1.02); EST CRCL DRUG DOSING (CG) 13.86 mL/min; POTASSIUM,K 3.9 mmol/L (3.5-5.1)
[2023-10-16 20:21] LABS: INR 2.7 (1.0-3.5)
[2023-10-17 00:37] LABS: ANION GAP 16.3 mmol/L (5.0-15.0); CALCIUM 9.2 mg/dL (8.5-10.1); CARBON DIOXIDE,CO2 21.7 mmol/L (21.0-32.0); CREATININE 2.48 mg/dL (0.55-1.02); EST CRCL DRUG DOSING (CG) 14.31 mL/min
[2023-10-17] MEDS: Sodium Chloride 0.9% 1,000 ML IV SCH (00:48)
[2023-10-17 07:24] VITALS: BP 180/93; PULSE 74
[2023-10-17 08:08] LABS: ANION GAP 9.7 mmol/L (5.0-15.0); BUN/CREATININE RATIO 19.2 (6-25); CALCIUM 9.1 mg/dL (8.5-10.1); CARBON DIOXIDE,CO2 27.4 mmol/L (21.0-32.0); CREATININE 2.24 mg/dL (0.55-1.02); EST CRCL DRUG DOSING (CG) 15.84 mL/min; POTASSIUM,K 4.1 mmol/L (3.5-5.1)
== END 2023-10-17 09:20 | disposition home or self-care (01) ==
LOC: LB.ED 18:17
DX: N17.9 Acute kidney failure, unspecified (principal); I12.9 Hypertensive chronic kidney disease with stage 1 through stage 4 chronic kidney disease, or unspecified chronic kidney disease; N18.9 Chronic kidney disease, unspecified; E78.00 Pure hypercholesterolemia, unspecified; I48.91 Unspecified atrial fibrillation; E03.9 Hypothyroidism, unspecified; E66.9 Obesity, unspecified; Z90.710 Acquired absence of both cervix and uterus; Z79.82 Long term (current) use of aspirin; Z79.01 Long term (current) use of anticoagulants; Z79.899 Other long term (current) drug therapy; Z91.040 Latex allergy status; Z88.8 Allergy status to other drugs, medicaments and biological substances; Z79.890 Hormone replacement therapy; Z68.36 Body mass index [BMI] 36.0-36.9, adult
CPT/HCPCS: 36415; 80048; 85025; 85610; 96360; 96361; 99284; 99284-25; J7030

== ENCOUNTER 2024-01-04 15:14 | Observation (INO) | payer MEDICARE, BC ==
[2024-01-04] MEDS: Metoprolol Tartrate 5 MG/5 ML SDV IVPUSH ONE ×3 (17:49→19:41)
[2024-01-04] MEDS: Metoprolol Tartrate 5 MG/5 ML SDV ONE ×3 (18:06→20:08)
[2024-01-04] MEDS: Lactated Ringers 1,000 ML IV SCH (18:14)
[2024-01-04] MEDS ORDERED: Lactated Ringers 500 ML IV SCH (18:15)
[2024-01-04] MEDS ORDERED: Lactated Ringers 1,000 ML IV SCH (18:15)
[2024-01-04 18:50] LABS: APPEARANCE,URINE CLEAR (CLEAR); BILIRUBIN,URINE NEGATIVE (NEGATIVE); COLOR,URINE YELLOW; GLUCOSE,URINE NEGATIVE (NEGATIVE); KETONES,URINE NEGATIVE (NEGATIVE); LEUKOCYTE ESTERASE,URINE NEGATIVE (NEGATIVE); NITRITE,URINE NEGATIVE (NEGATIVE); OCCULT BLOOD,URINE NEGATIVE (NEGATIVE); PH,URINE 6.5 (5.0-8.0); PROTEIN,URINE NEGATIVE (NEGATIVE); UROBILINOGEN,URINE 0.2 E.U./dL (0.2-1.0)
[2024-01-04 19:14] LABS: BASOPHILS ABSOLUTE AUTO 0.04 K/uL (0.02-0.10); BASOPHILS PERCENT AUTO 0.5 % (0.0-0.5); EOSINOPHILS ABSOLUTE AUTO 0.22 K/uL (0.04-0.40); EOSINOPHILS PERCENT AUTO 2.6 % (1.0-5.0); HEMATOCRIT 27.2 % (37.0-47.0); HEMOGLOBIN 7.6 g/dL (11.5-16.5); LYMPHOCYTES ABSOLUTE AUTO 1.16 K/uL (1.50-4.00); LYMPHOCYTES PERCENT AUTO 13.5 % (20.0-40.0); MEAN CORPUSCULAR HGB CONC 27.9 g/dL (31.0-35.0); MEAN CORPUSCULAR VOLUME 75 fL (76-96); MEAN PLATELET VOLUME 10.5 fL (6.0-10.0); MONOCYTES ABSOLUTE AUTO 0.93 K/uL (0.20-0.80); MONOCYTES PERCENT AUTO 10.9 % (3.0-10.0); NEUTROPHILS ABSOLUTE AUTO 6.22 K/uL (2.00-7.50); NEUTROPHILS PERCENT AUTO 72.5 % (45.0-70.0); PLATELET COUNT,PLT 209 K/uL (150-500); RED BLOOD CELL COUNT 3.62 M/uL (3.80-5.80); RED CELL DISTRIBUTION WIDTH 17.4 % (11.0-16.0); WHITE BLOOD CELL COUNT,WBC 8.6 K/uL (4.0-11.0)
[2024-01-04 19:44] LABS: A/G RATIO 0.8 (0.8-2.0); ALBUMIN 3.2 g/dL (3.4-5.0); ANION GAP 10.2 mmol/L (5.0-15.0); BILIRUBIN TOTAL 0.5 mg/dL (0.0-1.0); BUN/CREATININE RATIO 15.2 (6-25); CALCIUM 9.9 mg/dL (8.5-10.1); CARBON DIOXIDE,CO2 28.5 mmol/L (21.0-32.0); CREATININE 1.84 mg/dL (0.55-1.02); EST CRCL DRUG DOSING (CG) 19.29 mL/min; POTASSIUM,K 4.7 mmol/L (3.5-5.1)
[2024-01-04] MEDS: Gabapentin 300 MG Cap PO ONE (19:50)
[2024-01-04] MEDS: Diltiazem 25 MG/5 ML SDV IVPUSH ONE (20:09)
[2024-01-04 20:34] LABS: INR 1.6 (1.0-3.5)
[2024-01-04 20:35] LABS: PROTHROMBIN TIME 16.2 sec (9.0-11.5)
[2024-01-04] MEDS ORDERED: Docusate Sodium 100 MG Cap PO PRN (21:24)
[2024-01-04] MEDS ORDERED: Calcium Carbonate 500 MG Tab.Chew PO PRN (21:24)
[2024-01-04] MEDS: Simvastatin 40 MG Tab PO SCH (23:30)
[2024-01-04] MEDS: Melatonin 10 MG Cap PO SCH (23:31)
[2024-01-04] MEDS: Sennosides 8.6 MG Tab PO SCH (23:31)
[2024-01-04] MEDS: Metoprolol Tartrate 25 MG Tab PO SCH (23:31)
[2024-01-04] MEDS: Warfarin 5 MG Tab ONE (23:38)
[2024-01-04] MEDS: Warfarin 5 MG Tab PO ONE (23:47)
[2024-01-05] MEDS: WARFARIN 2.5 MG PO SCH (00:52)
[2024-01-05] MEDS: Diltiazem 180 MG Cap.CD PO SCH (07:45)
[2024-01-05] MEDS: Levothyroxine 88 MCG Tab PO SCH (07:45)
[2024-01-05] MEDS: Venlafaxine 150 MG Cap.ER PO SCH (07:45)
[2024-01-05] MEDS: Omeprazole 20 MG Cap.CR PO SCH (07:46)
[2024-01-05] MEDS: Levothyroxine 100 MCG Tab PO SCH (07:46)
[2024-01-05] MEDS: Acetaminophen 325 MG Tab PO PRN (07:47)
[2024-01-05 08:32] LABS: BASOPHILS ABSOLUTE AUTO 0.03 K/uL (0.02-0.10); BASOPHILS PERCENT AUTO 0.3 % (0.0-0.5); EOSINOPHILS PERCENT AUTO 3.4 % (1.0-5.0); HEMATOCRIT 27.6 % (37.0-47.0); LYMPHOCYTES ABSOLUTE AUTO 1.23 K/uL (1.50-4.00); LYMPHOCYTES PERCENT AUTO 13.9 % (20.0-40.0); MEAN CORPUSCULAR HEMOGLOBIN 21.1 pg (27.0-32.0); MEAN CORPUSCULAR HGB CONC 27.5 g/dL (31.0-35.0); MEAN CORPUSCULAR VOLUME 77 fL (76-96); MEAN PLATELET VOLUME 10.1 fL (6.0-10.0); MONOCYTES ABSOLUTE AUTO 0.95 K/uL (0.20-0.80); MONOCYTES PERCENT AUTO 10.7 % (3.0-10.0); NEUTROPHILS ABSOLUTE AUTO 6.37 K/uL (2.00-7.50); NEUTROPHILS PERCENT AUTO 71.7 % (45.0-70.0); PLATELET COUNT,PLT 256 K/uL (150-500); RED BLOOD CELL COUNT 3.61 M/uL (3.80-5.80); RED CELL DISTRIBUTION WIDTH 17.7 % (11.0-16.0); WHITE BLOOD CELL COUNT,WBC 8.9 K/uL (4.0-11.0)
[2024-01-05 08:37] LABS: HEMOGLOBIN 7.6 g/dL (11.5-16.5)
[2024-01-05 08:39] LABS: INR 1.5 (1.0-3.5)
[2024-01-05 08:43] LABS: ANION GAP 11.3 mmol/L (5.0-15.0); CALCIUM 9.3 mg/dL (8.5-10.1); CARBON DIOXIDE,CO2 28.3 mmol/L (21.0-32.0); CREATININE 1.86 mg/dL (0.55-1.02); EST CRCL DRUG DOSING (CG) 19.08 mL/min; POTASSIUM,K 4.6 mmol/L (3.5-5.1)
[2024-01-05 08:48] LABS: PROTHROMBIN TIME 15.3 sec (9.0-11.5)
[2024-01-05] MEDS: Sodium Chloride 0.9% 1,000 ML IV ONE (10:56)
[2024-01-05] MEDS ORDERED: Diltiazem 100 MG in Sodium Chloride 0.9% 100 ML IV SCH (11:15)
[2024-01-05 12:34] VITALS: BP 148/74; PULSE 84
[2024-01-05] MEDS ORDERED: Warfarin 4 MG Tab PO SCH (18:00)
[2024-01-05] MEDS ORDERED: WARFARIN 2.5 MG PO SCH (18:00)
[2024-01-07] MEDS ORDERED: WARFARIN 2.5 MG PO SCH (18:00)
== END 2024-01-05 13:12 ==
LOC: LB.ED 15:14 → LB.MS 17:17 → UNDOADMOB 20:56 → LB.MS 20:56
PROVIDERS: ADMIT Nurse Practitioner Family; ATTEND Nurse Practitioner Family
DX: I48.91 Unspecified atrial fibrillation (principal); I12.9 Hypertensive chronic kidney disease with stage 1 through stage 4 chronic kidney disease, or unspecified chronic kidney disease; N18.9 Chronic kidney disease, unspecified; I25.10 Atherosclerotic heart disease of native coronary artery without angina pectoris; E78.00 Pure hypercholesterolemia, unspecified; E03.9 Hypothyroidism, unspecified; Z87.891 Personal history of nicotine dependence; Z79.01 Long term (current) use of anticoagulants; Z79.890 Hormone replacement therapy; Z79.899 Other long term (current) drug therapy
CPT/HCPCS: 36415; 71045; 80048; 80053; 81003; 83735; 84100; 84484; 85025; 85610; 93005; 96361; 96374; 96375; 99285-25; A9270-GY; G0378; J3490; J7030; J7120

== ENCOUNTER 2024-03-26 12:46 | Inpatient (IN) | payer MEDICARE, BC ==
[2024-03-26] MEDS ORDERED: Sodium Chloride 0.9% 10 ML Syringe FLUSH PRN (13:07)
[2024-03-26 13:26] LABS: HEMATOCRIT 28.3 % (37.0-47.0); HEMOGLOBIN 8.5 g/dL (11.5-16.5); MEAN PLATELET VOLUME 10.2 fL (6.0-10.0); RED BLOOD CELL COUNT 3.54 M/uL (3.80-5.80); WHITE BLOOD CELL COUNT,WBC 9.7 K/uL (4.0-11.0)
[2024-03-26 13:42] LABS: INR 2.7 (1.0-3.5)
[2024-03-26 13:44] LABS: PROTHROMBIN TIME 26.6 sec (9.0-11.5)
[2024-03-26 13:50] LABS: ANION GAP 8.2 mmol/L (5.0-15.0); BLOOD UREA NITROGEN,BUN 29 mg/dL (8-26); BUN/CREATININE RATIO 20.6 (6-25); CALCIUM 9.8 mg/dL (8.5-10.1); CARBON DIOXIDE,CO2 28.2 mmol/L (21.0-32.0); CHLORIDE,CL 103 mmol/L (98-107); CREATININE 1.41 mg/dL (0.55-1.02); ESTIMATED GFR 37 mL/min (>60); GLUCOSE RANDOM 93 mg/dL (74-100); POTASSIUM,K 4.4 mmol/L (3.5-5.1); SODIUM,NA 135 mmol/L (136-145); TROPONIN I HIGH SENSITIVITY 7.7 pg/ml (<=60.4)
[2024-03-26 13:56] LABS: MAGNESIUM 1.9 mg/dL (1.8-2.4); PHOSPHORUS 2.7 mg/dL (2.5-4.9)
[2024-03-26] MEDS ORDERED: fentaNYL 25 MCG/HR Transdermal Patch TRDERM SCH (17:15)
[2024-03-26 17:28] LABS: INFLUENZA A NAA NEGATIVE (NEGATIVE); INFLUENZA B NAA NEGATIVE (NEGATIVE); RESPIRATORY SYNCYTIAL VIR NAA NEGATIVE (NEGATIVE)
[2024-03-26 17:29] LABS: CORONAVIRUS COVID-19 NAA NEGATIVE (NEGATIVE)
[2024-03-26] MEDS: Warfarin 2.5 MG Tab PO SCH (18:06)
[2024-03-26] MEDS: Furosemide 20 MG Tab PO SCH (18:06)
[2024-03-26] MEDS: Simvastatin 40 MG Tab PO SCH (20:56)
[2024-03-26] MEDS: Omeprazole 20 MG Cap.CR PO SCH (20:56)
[2024-03-26] MEDS: Metoprolol Tartrate 50 MG Tab PO SCH (20:56)
[2024-03-26] MEDS: Cyclobenzaprine 10 MG Tab PO SCH (20:57)
[2024-03-26] MEDS: Sennosides 8.6 MG Tab PO SCH (20:58)
[2024-03-26] MEDS: Melatonin 10 MG Cap PO SCH (20:58)
[2024-03-26] MEDS: Gabapentin 300 MG Cap PO SCH (20:58)
[2024-03-26] MEDS: Acetaminophen 650 MG Tab.ER PO PRN (22:33)
[2024-03-27] MEDS: Levothyroxine 100 MCG Tab PO SCH (07:57)
[2024-03-27] MEDS: Diltiazem 180 MG Cap.CD PO SCH (07:57)
[2024-03-27] MEDS: Levothyroxine 88 MCG Tab PO SCH (07:57)
[2024-03-27] MEDS: Venlafaxine 150 MG Cap.ER PO SCH (07:58)
[2024-03-27] MEDS: Venlafaxine 75 MG Cap.ER PO SCH (07:58)
[2024-03-28 09:55] LABS: HEMATOCRIT 28.3 % (37.0-47.0); HEMOGLOBIN 8.4 g/dL (11.5-16.5); MEAN CORPUSCULAR HEMOGLOBIN 24.3 pg (27.0-32.0); MEAN CORPUSCULAR HGB CONC 29.7 g/dL (31.0-35.0); MEAN PLATELET VOLUME 10.6 fL (6.0-10.0); RED BLOOD CELL COUNT 3.46 M/uL (3.80-5.80); RED CELL DISTRIBUTION WIDTH 19.8 % (11.0-16.0); WHITE BLOOD CELL COUNT,WBC 7.4 K/uL (4.0-11.0)
[2024-03-28 10:09] LABS: ANION GAP 9.6 mmol/L (5.0-15.0); BUN/CREATININE RATIO 16.9 (6-25); CALCIUM 9.2 mg/dL (8.5-10.1); CREATININE 1.77 mg/dL (0.55-1.02); EST CRCL DRUG DOSING (CG) 19.71 mL/min; POTASSIUM,K 4.6 mmol/L (3.5-5.1)
[2024-03-28 13:03] VITALS: BP 147/74; PULSE 98
[2024-03-29] MEDS ORDERED: fentaNYL 25 MCG/HR Transdermal Patch TRDERM SCH (08:00)
== END 2024-03-28 12:40 | disposition home or self-care (01) | DRG 291 ==
LOC: LB.ED 12:46 → LB.MS 16:43
PROVIDERS: ADMIT Surgery; ATTEND Surgery
DX: I11.0 Hypertensive heart disease with heart failure (principal); I50.43 Acute on chronic combined systolic (congestive) and diastolic (congestive) heart failure; D64.9 Anemia, unspecified; R09.02 Hypoxemia; I48.91 Unspecified atrial fibrillation; D50.9 Iron deficiency anemia, unspecified; H54.7 Unspecified visual loss; I25.10 Atherosclerotic heart disease of native coronary artery without angina pectoris; E78.00 Pure hypercholesterolemia, unspecified; M19.90 Unspecified osteoarthritis, unspecified site; Z88.6 Allergy status to analgesic agent; F32.A Depression, unspecified; E03.9 Hypothyroidism, unspecified; Z96.659 Presence of unspecified artificial knee joint; Z90.710 Acquired absence of both cervix and uterus; Z98.49 Cataract extraction status, unspecified eye; Z98.890 Other specified postprocedural states; Z99.81 Dependence on supplemental oxygen; Z79.01 Long term (current) use of anticoagulants; Z79.899 Other long term (current) drug therapy; Z91.040 Latex allergy status; Z88.8 Allergy status to other drugs, medicaments and biological substances; Z87.81 Personal history of (healed) traumatic fracture; Z87.891 Personal history of nicotine dependence
CPT/HCPCS: 0241U; 36415; 71045; 71250; 80048; 83735; 83880; 84100; 84484; 85027; 85610; 93010; 99222; 99238; 99285; A9270-GY

== ENCOUNTER 2024-06-18 14:27 | Emergency (ER) | payer MEDICARE, BC ==
[2024-06-18 15:08] VITALS: BP 154/85; PULSE 110
== END 2024-06-18 15:09 | disposition home or self-care (01) ==
LOC: LB.ED 14:27
DX: R42 Dizziness and giddiness (principal); I25.10 Atherosclerotic heart disease of native coronary artery without angina pectoris; I48.91 Unspecified atrial fibrillation; I12.9 Hypertensive chronic kidney disease with stage 1 through stage 4 chronic kidney disease, or unspecified chronic kidney disease; N18.9 Chronic kidney disease, unspecified; E03.9 Hypothyroidism, unspecified; Z79.899 Other long term (current) drug therapy; Z79.01 Long term (current) use of anticoagulants
CPT/HCPCS: 99283

== ENCOUNTER 2024-08-13 01:11 | Emergency (ER) | payer MEDICARE, BC ==
[2024-08-13] MEDS: Lidocaine 1% with EPINEPHrine 1:100,000 20 ML MDV INJECT ONE (01:40)
[2024-08-13 02:43] VITALS: BP 165/67; PULSE 95
== END 2024-08-13 02:00 | disposition home or self-care (01) ==
LOC: LB.ED 01:11
DX: S01.81XA Laceration without foreign body of other part of head, initial encounter (principal); I48.91 Unspecified atrial fibrillation; I25.10 Atherosclerotic heart disease of native coronary artery without angina pectoris; E78.00 Pure hypercholesterolemia, unspecified; I10 Essential (primary) hypertension; J44.9 Chronic obstructive pulmonary disease, unspecified; E66.9 Obesity, unspecified; Z68.33 Body mass index [BMI] 33.0-33.9, adult; Z90.710 Acquired absence of both cervix and uterus; Z79.899 Other long term (current) drug therapy; Z91.040 Latex allergy status; Z88.8 Allergy status to other drugs, medicaments and biological substances; W19.XXXA Unspecified fall, initial encounter
CPT/HCPCS: 12011; 70450; 72125; 93005; 99284

== ENCOUNTER 2024-09-07 14:19 | Emergency (ER) | payer MEDICARE, BC ==
[2024-09-07 17:41] VITALS: BP 138/64; PULSE 72
== END 2024-09-07 16:22 | disposition home or self-care (01) ==
LOC: LB.ED 14:19
DX: S01.81XA Laceration without foreign body of other part of head, initial encounter (principal); I10 Essential (primary) hypertension; I25.10 Atherosclerotic heart disease of native coronary artery without angina pectoris; E78.00 Pure hypercholesterolemia, unspecified; J44.9 Chronic obstructive pulmonary disease, unspecified; E03.9 Hypothyroidism, unspecified; E66.9 Obesity, unspecified; Z90.710 Acquired absence of both cervix and uterus; Z79.899 Other long term (current) drug therapy; Z79.890 Hormone replacement therapy; Z91.040 Latex allergy status; Z88.8 Allergy status to other drugs, medicaments and biological substances; Z68.36 Body mass index [BMI] 36.0-36.9, adult; W01.0XXA Fall on same level from slipping, tripping and stumbling without subsequent striking against object, initial encounter
CPT/HCPCS: 12011; 70450; 72125; 73060-RT; 99284

== ENCOUNTER 2024-10-13 22:25 | Inpatient (IN) | payer MEDICARE, BC ==
[2024-10-13] MEDS: Albuterol/Ipratropium 3.0-0.5 MG/3 ML Neb Soln NEB ONE (22:35)
[2024-10-13 22:59] LABS: HEMATOCRIT 24.2 % (37.0-47.0); MEAN CORPUSCULAR HEMOGLOBIN 22.9 pg (27.0-32.0); MEAN CORPUSCULAR HGB CONC 28.5 g/dL (31.0-35.0); MEAN PLATELET VOLUME 10.1 fL (6.0-10.0); RED BLOOD CELL COUNT 3.01 M/uL (3.80-5.80); RED CELL DISTRIBUTION WIDTH 19.5 % (11.0-16.0); WHITE BLOOD CELL COUNT,WBC 8.6 K/uL (4.0-11.0)
[2024-10-13 23:15] LABS: ANION GAP 14.9 mmol/L (5.0-15.0); BLOOD UREA NITROGEN,BUN 35 mg/dL (8-26); BUN/CREATININE RATIO 16.3 (6-25); CARBON DIOXIDE,CO2 26.5 mmol/L (21.0-32.0); CHLORIDE,CL 104 mmol/L (98-107); CREATININE 2.15 mg/dL (0.55-1.02); ESTIMATED GFR 23 mL/min (>60); GLUCOSE RANDOM 134 mg/dL (74-100); MAGNESIUM 2.2 mg/dL (1.8-2.4); POTASSIUM,K 5.4 mmol/L (3.5-5.1); SODIUM,NA 140 mmol/L (136-145); TROPONIN I HIGH SENSITIVITY 5.5 pg/ml (<=60.4)
[2024-10-13 23:23] LABS: HEMOGLOBIN 6.9 g/dL (11.5-16.5)
[2024-10-13 23:30] LABS: INFLUENZA A NAA NEGATIVE (NEGATIVE); INFLUENZA B NAA NEGATIVE (NEGATIVE); RESPIRATORY SYNCYTIAL VIR NAA NEGATIVE (NEGATIVE)
[2024-10-13 23:34] LABS: LACTIC ACID 1.7 mmol/L (0.4-2.0)
[2024-10-13 23:36] LABS: CORONAVIRUS COVID-19 NAA NEGATIVE (NEGATIVE)
[2024-10-13] MEDS: Albuterol 0.083% 2.5 MG/3 ML Neb Soln NEB ONE (23:38)
[2024-10-14] MEDS: Azithromycin 500 MG in Sodium Chloride 0.9% 250 ML IV ONE (00:01)
[2024-10-14] MEDS: Albuterol/Ipratropium 3.0-0.5 MG/3 ML Neb Soln NEB SCH (01:35)
[2024-10-14] MEDS: Furosemide 40 MG/4 ML VIAL IVPUSH ONE (01:35)
[2024-10-14] MEDS: fentaNYL 25 MCG/HR Transdermal Patch TRDERM SCH (01:37)
[2024-10-14] MEDS: Sennosides/Docusate Sodium 50-8.6 MG Tab PO SCH (08:34)
[2024-10-14] MEDS: Gabapentin 300 MG Cap PO SCH (08:34)
[2024-10-14] MEDS: Diltiazem 180 MG Cap.CD PO SCH (08:34)
[2024-10-14] MEDS: Pantoprazole 40 MG Tab.CR PO SCH (08:34)
[2024-10-14] MEDS: Levothyroxine 88 MCG Tab PO SCH (08:37)
[2024-10-14 10:32] LABS: PCO2 ARTERIAL 41.4 mmHg (35-45)
[2024-10-14 10:33] LABS: BASE EXCESS ARTERIAL -1.9 (-2-2); BICARBONATE,ARTERIAL 23.5 mmol/L (22-26); O2 SATURATION ARTERIAL 99.5 % (95-98); PO2 ARTERIAL 173.5 mmHg (80-105)
[2024-10-14] MEDS: Venlafaxine 150 MG Cap.ER PO SCH (15:12)
[2024-10-14] MEDS: Venlafaxine 75 MG Cap.ER PO SCH (15:12)
[2024-10-14] MEDS: Warfarin 2.5 MG Tab PO SCH (17:03)
[2024-10-14] MEDS: Lactobacillus Acidophilus/Lactobacillus Sporogenes (Probiotic) Tab PO SCH (18:09)
[2024-10-14] MEDS: Azithromycin 250 MG in Sodium Chloride 0.9% 250 ML IV SCH (18:10)
[2024-10-14] MEDS: Furosemide 20 MG Tab PO SCH (18:10)
[2024-10-14] MEDS: Melatonin 10 MG Cap PO SCH (20:11)
[2024-10-14] MEDS: Metoprolol Tartrate 5 MG/5 ML SDV IVPUSH ONE (20:11)
[2024-10-14] MEDS: Simvastatin 40 MG Tab PO SCH (20:12)
[2024-10-14] MEDS: Cyclobenzaprine 10 MG Tab PO SCH (20:12)
[2024-10-14] MEDS: Metoprolol Succinate 50 MG Tab.ER PO SCH (22:19)
[2024-10-15] MEDS: Levothyroxine 88 MCG Tab PO SCH (07:25)
[2024-10-15] MEDS: Sodium Chloride 0.9% 10 ML Syringe FLUSH PRN (07:26)
[2024-10-15] MEDS: Albuterol/Ipratropium 3.0-0.5 MG/3 ML Neb Soln NEB SCH (07:26)
[2024-10-15 10:18] LABS: ANION GAP 15.6 mmol/L (5.0-15.0); BUN/CREATININE RATIO 14.9 (6-25); CALCIUM 9.4 mg/dL (8.5-10.1); CARBON DIOXIDE,CO2 25.8 mmol/L (21.0-32.0); CREATININE 2.02 mg/dL (0.55-1.02); EST CRCL DRUG DOSING (CG) 17.27 mL/min; MAGNESIUM 2.1 mg/dL (1.8-2.4); POTASSIUM,K 4.4 mmol/L (3.5-5.1)
[2024-10-15] MEDS: Azithromycin 250 MG Tab PO SCH (19:28)
[2024-10-16] MEDS: Acetaminophen 325 MG Tab PO PRN (02:02)
[2024-10-16] MEDS: Albuterol/Ipratropium 3.0-0.5 MG/3 ML Neb Soln ONE (17:28)
[2024-10-16] MEDS: Gabapentin 300 MG Cap ONE (17:28)
[2024-10-17 07:47] VITALS: PULSE 87
[2024-10-17 07:48] VITALS: BP 150/85
[2024-10-17] MEDS ORDERED: Acetaminophen 650 MG Tab.ER PO PRN (09:04)
[2024-10-17] MEDS: Furosemide 20 MG Tab PO SCH (10:02)
[2024-10-17 10:03] LABS: INR 1.2 (1.0-3.5)
[2024-10-17 10:07] LABS: PROTHROMBIN TIME 12.8 sec (9.0-11.5)
== END 2024-10-17 13:30 | disposition home or self-care (01) | DRG 193 ==
LOC: LB.ED 22:25 → LB.MS 10-14 00:46
PROVIDERS: ADMIT Surgery; ATTEND Surgery
PROC: 30233N1 Transfusion of Nonautologous Red Blood Cells into Peripheral Vein, Percutaneous Approach (ICD-10-PCS; principal; 2024-10-17)
DX: J18.9 Pneumonia, unspecified organism (principal); I50.41 Acute combined systolic (congestive) and diastolic (congestive) heart failure; I13.0 Hypertensive heart and chronic kidney disease with heart failure and stage 1 through stage 4 chronic kidney disease, or unspecified chronic kidney disease; I11.0 Hypertensive heart disease with heart failure; I50.43 Acute on chronic combined systolic (congestive) and diastolic (congestive) heart failure; N17.9 Acute kidney failure, unspecified; D64.9 Anemia, unspecified; J44.9 Chronic obstructive pulmonary disease, unspecified; N18.9 Chronic kidney disease, unspecified; H54.7 Unspecified visual loss; Z79.899 Other long term (current) drug therapy; I48.91 Unspecified atrial fibrillation; I25.10 Atherosclerotic heart disease of native coronary artery without angina pectoris; Z91.040 Latex allergy status; Z68.36 Body mass index [BMI] 36.0-36.9, adult; E78.00 Pure hypercholesterolemia, unspecified; M19.90 Unspecified osteoarthritis, unspecified site; F32.A Depression, unspecified; E03.9 Hypothyroidism, unspecified; E66.9 Obesity, unspecified; Z68.37 Body mass index [BMI] 37.0-37.9, adult; Z79.01 Long term (current) use of anticoagulants; Z98.890 Other specified postprocedural states; Z88.8 Allergy status to other drugs, medicaments and biological substances; Z95.5 Presence of coronary angioplasty implant and graft; Z90.710 Acquired absence of both cervix and uterus; Z91.048 Other nonmedicinal substance allergy status; Z96.659 Presence of unspecified artificial knee joint; Z99.81 Dependence on supplemental oxygen
CPT/HCPCS: 0241U; 36415; 36430; 36600; 71045; 80048; 82803; 83605; 83735; 83880; 84100; 84484; 85018; 85027; 85610; 86850; 86900; 86901; 86920; 86922; 87040; 93005; 93010; 94640; 96365; 99222; 99232; 99238; 99285-25; A0425; A0429; A9270-GY; J0456; J1940; J3490; J7050; J7620; P9016

== ENCOUNTER 2024-11-14 14:35 | Inpatient (IN) | payer MEDICARE, BC ==
[2024-11-14] MEDS ORDERED: Sodium Chloride 0.9% 10 ML Syringe FLUSH PRN (15:21)
[2024-11-14] MEDS: Sodium Chloride 0.9% 1,000 ML IV SCH ×2 (15:55→20:42)
[2024-11-14 16:09] LABS: ANION GAP 14.2 mmol/L (5.0-15.0); BUN/CREATININE RATIO 13.7 (6-25); CALCIUM 9.3 mg/dL (8.5-10.1); CARBON DIOXIDE,CO2 27.4 mmol/L (21.0-32.0); EST CRCL DRUG DOSING (CG) 11.4 mL/min; MAGNESIUM 2.2 mg/dL (1.8-2.4); POTASSIUM,K 5.6 mmol/L (3.5-5.1); TROPONIN I HIGH SENSITIVITY 13.6 pg/ml (<=60.4)
[2024-11-14 16:11] LABS: CREATININE 3.06 mg/dL (0.55-1.02)
[2024-11-14 16:51] LABS: HEMATOCRIT 32.8 % (37.0-47.0); HEMOGLOBIN 9.6 g/dL (11.5-16.5); MEAN CORPUSCULAR HEMOGLOBIN 24.7 pg (27.0-32.0); MEAN CORPUSCULAR HGB CONC 29.3 g/dL (31.0-35.0); MEAN PLATELET VOLUME 11.8 fL (6.0-10.0); RED BLOOD CELL COUNT 3.89 M/uL (3.80-5.80); RED CELL DISTRIBUTION WIDTH 18.7 % (11.0-16.0); WHITE BLOOD CELL COUNT,WBC 6.6 K/uL (4.0-11.0)
[2024-11-14 16:56] LABS: INR 1.3 (1.0-3.5)
[2024-11-14 17:16] LABS: PROTHROMBIN TIME 13.2 sec (9.0-11.5)
[2024-11-14] MEDS: fentaNYL 25 MCG/HR Transdermal Patch TRDERM SCH (21:29)
[2024-11-14] MEDS: Cyclobenzaprine 10 MG Tab PO SCH (21:30)
[2024-11-14] MEDS: Simvastatin 40 MG Tab PO SCH (21:31)
[2024-11-14] MEDS: Gabapentin 300 MG Cap PO SCH (21:31)
[2024-11-14] MEDS: Melatonin 10 MG Cap PO SCH (21:31)
[2024-11-14] MEDS: Sennosides/Docusate Sodium 50-8.6 MG Tab PO SCH (21:31)
[2024-11-15] MEDS: Diazepam 5 MG Tab PO ONE (02:05)
[2024-11-15] MEDS: LORazepam 2 MG/ML SDV IVPUSH ONE (06:20)
[2024-11-15] MEDS ORDERED: Pantoprazole 40 MG Delayed-Release Granules 1 Packet PO SCH (07:00)
[2024-11-15] MEDS ORDERED: Venlafaxine 75 MG Cap.ER PO SCH ×2 (08:00)
[2024-11-15] MEDS ORDERED: Gabapentin 300 MG Cap PO SCH (08:00)
[2024-11-15 09:15] LABS: HEMATOCRIT 30.8 % (37.0-47.0); HEMOGLOBIN 8.9 g/dL (11.5-16.5); MEAN CORPUSCULAR HEMOGLOBIN 24.4 pg (27.0-32.0); MEAN CORPUSCULAR HGB CONC 28.9 g/dL (31.0-35.0); MEAN PLATELET VOLUME 11.5 fL (6.0-10.0); RED BLOOD CELL COUNT 3.65 M/uL (3.80-5.80); RED CELL DISTRIBUTION WIDTH 18.7 % (11.0-16.0); WHITE BLOOD CELL COUNT,WBC 5.6 K/uL (4.0-11.0)
[2024-11-15 09:30] LABS: ANION GAP 12.8 mmol/L (5.0-15.0); BUN/CREATININE RATIO 14.2 (6-25); CARBON DIOXIDE,CO2 27.1 mmol/L (21.0-32.0); CREATININE 2.74 mg/dL (0.55-1.02); EST CRCL DRUG DOSING (CG) 12.74 mL/min; POTASSIUM,K 4.9 mmol/L (3.5-5.1)
[2024-11-15] MEDS: Diltiazem 180 MG Cap.CD PO SCH (10:56)
[2024-11-15] MEDS: Levothyroxine 88 MCG Tab PO SCH (10:57)
[2024-11-15] MEDS: Furosemide 20 MG Tab PO SCH (10:57)
[2024-11-15] MEDS: Acetaminophen 325 MG Tab PO PRN (10:58)
[2024-11-15] MEDS: Pantoprazole 40 MG Tab.CR PO SCH (11:10)
[2024-11-15 16:32] LABS: APPEARANCE,URINE CLEAR (CLEAR); BILIRUBIN,URINE NEGATIVE (NEGATIVE); COLOR,URINE YELLOW; GLUCOSE,URINE NEGATIVE (NEGATIVE); KETONES,URINE NEGATIVE (NEGATIVE); LEUKOCYTE ESTERASE,URINE NEGATIVE (NEGATIVE); NITRITE,URINE NEGATIVE (NEGATIVE); OCCULT BLOOD,URINE NEGATIVE (NEGATIVE); PH,URINE 5.5 (5.0-8.0); PROTEIN,URINE 30 mg/dL (NEGATIVE); RBC,URINE NOT SEEN /HPF; UROBILINOGEN,URINE 0.2 E.U./dL (0.2-1.0); WBC,URINE NOT SEEN /HPF
[2024-11-15] MEDS ORDERED: Warfarin 5 MG Tab PO SCH (18:00)
[2024-11-15] MEDS ORDERED: Warfarin 2.5 MG Tab PO SCH ×2 (18:00)
[2024-11-15] MEDS: Warfarin 5 MG Tab PO SCH (20:28)
[2024-11-15] MEDS: Warfarin 5 MG Tab ONE (20:29)
[2024-11-16 07:18] VITALS: PULSE 81
[2024-11-16 07:23] VITALS: BP 135/55
[2024-11-16 08:48] LABS: ANION GAP 11.9 mmol/L (5.0-15.0); BUN/CREATININE RATIO 14.4 (6-25); CALCIUM 9.1 mg/dL (8.5-10.1); CARBON DIOXIDE,CO2 25.8 mmol/L (21.0-32.0); CREATININE 2.63 mg/dL (0.55-1.02); EST CRCL DRUG DOSING (CG) 13.27 mL/min; POTASSIUM,K 4.7 mmol/L (3.5-5.1)
[2024-11-16 10:34] LABS: INR 1.3 (1.0-3.5)
[2024-11-16 10:35] LABS: PROTHROMBIN TIME 13.3 sec (9.0-11.5)
[2024-11-16] MEDS ORDERED: Warfarin 2.5 MG Tab PO SCH (18:00)
[2024-11-18] MEDS ORDERED: Warfarin 5 MG Tab PO SCH (18:00)
== END 2024-11-16 13:20 | disposition home or self-care (01) | DRG 309 ==
LOC: LB.ED 14:35 → LB.MS 18:15 → OBSVTOIN 11-15 15:52
PROVIDERS: ADMIT Surgery; ATTEND Surgery
DX: R00.1 Bradycardia, unspecified (principal); N17.9 Acute kidney failure, unspecified; I10 Essential (primary) hypertension; I48.91 Unspecified atrial fibrillation; I25.10 Atherosclerotic heart disease of native coronary artery without angina pectoris; E78.00 Pure hypercholesterolemia, unspecified; J44.9 Chronic obstructive pulmonary disease, unspecified; K59.09 Other constipation; M19.90 Unspecified osteoarthritis, unspecified site; E03.9 Hypothyroidism, unspecified; E66.9 Obesity, unspecified; Z79.890 Hormone replacement therapy; Z96.659 Presence of unspecified artificial knee joint; N18.9 Chronic kidney disease, unspecified; F15.90 Other stimulant use, unspecified, uncomplicated; I12.9 Hypertensive chronic kidney disease with stage 1 through stage 4 chronic kidney disease, or unspecified chronic kidney disease; Z79.02 Long term (current) use of antithrombotics/antiplatelets; Z79.01 Long term (current) use of anticoagulants; Z88.8 Allergy status to other drugs, medicaments and biological substances; Z91.040 Latex allergy status; Z79.1 Long term (current) use of non-steroidal anti-inflammatories (NSAID); Z87.81 Personal history of (healed) traumatic fracture; Z98.49 Cataract extraction status, unspecified eye; Z90.710 Acquired absence of both cervix and uterus; Z79.899 Other long term (current) drug therapy; Z86.718 Personal history of other venous thrombosis and embolism; Z68.37 Body mass index [BMI] 37.0-37.9, adult
CPT/HCPCS: 36415; 51701; 80048; 81001; 83735; 84100; 84484; 85027; 85610; 93005; 93010; 96360; 96361; 99222; 99239; 99285-25; A0425; A0428; A9270-GY; C1758; G0378

== ENCOUNTER 2025-02-24 15:09 | Emergency (ER) | payer MEDICARE, BC ==
[2025-02-24] MEDS: Sodium Chloride 0.9% 1,000 ML IV SCH (16:53)
[2025-02-24 16:56] LABS: BASOPHILS ABSOLUTE AUTO 0.04 K/uL (0.02-0.10); BASOPHILS PERCENT AUTO 0.7 % (0.0-0.5); EOSINOPHILS ABSOLUTE AUTO 0.13 K/uL (0.04-0.40); EOSINOPHILS PERCENT AUTO 2.2 % (1.0-5.0); HEMATOCRIT 40.9 % (37.0-47.0); HEMOGLOBIN 12.6 g/dL (11.5-16.5); LYMPHOCYTES ABSOLUTE AUTO 1.13 K/uL (1.50-4.00); LYMPHOCYTES PERCENT AUTO 19.5 % (20.0-40.0); MEAN CORPUSCULAR HEMOGLOBIN 26.1 pg (27.0-32.0); MEAN CORPUSCULAR HGB CONC 30.8 g/dL (31.0-35.0); MEAN CORPUSCULAR VOLUME 85 fL (76-96); MEAN PLATELET VOLUME 11.2 fL (6.0-10.0); MONOCYTES ABSOLUTE AUTO 0.55 K/uL (0.20-0.80); MONOCYTES PERCENT AUTO 9.5 % (3.0-10.0); NEUTROPHILS ABSOLUTE AUTO 3.94 K/uL (2.00-7.50); NEUTROPHILS PERCENT AUTO 68.1 % (45.0-70.0); PLATELET COUNT,PLT 262 K/uL (150-500); RED BLOOD CELL COUNT 4.83 M/uL (3.80-5.80); RED CELL DISTRIBUTION WIDTH 20.9 % (11.0-16.0); WHITE BLOOD CELL COUNT,WBC 5.8 K/uL (4.0-11.0)
[2025-02-24] MEDS: Labetalol 100 MG/20 ML MDV IVPUSH ONE ×3 (17:11→19:40)
[2025-02-24 17:12] LABS: A/G RATIO 0.9 (0.8-2.0); ALBUMIN 3.6 g/dL (3.4-5.0); ANION GAP 10.6 mmol/L (5.0-15.0); BILIRUBIN TOTAL 0.5 mg/dL (0.0-1.0); BUN/CREATININE RATIO 10.8 (6-25); CALCIUM 10.6 mg/dL (8.5-10.1); CARBON DIOXIDE,CO2 26.9 mmol/L (21.0-32.0); CREATININE 2.22 mg/dL (0.55-1.02); EST CRCL DRUG DOSING (CG) 15.45 mL/min; POTASSIUM,K 4.5 mmol/L (3.5-5.1); PROTEIN TOTAL,TP 7.7 g/dL (6.4-8.2)
[2025-02-24 17:34] LABS: INFLUENZA A NAA NEGATIVE (NEGATIVE); INFLUENZA B NAA NEGATIVE (NEGATIVE); RESPIRATORY SYNCYTIAL VIR NAA NEGATIVE (NEGATIVE)
[2025-02-24 17:37] LABS: CORONAVIRUS COVID-19 NAA NEGATIVE (NEGATIVE)
[2025-02-24 17:43] LABS: APPEARANCE,URINE CLOUDY (CLEAR); COLOR,URINE YELLOW; PH,URINE 5.5 (5.0-8.0); PROTEIN,URINE >=300 mg/dL (NEGATIVE)
[2025-02-24 17:44] LABS: BILIRUBIN,URINE SMALL (NEGATIVE); GLUCOSE,URINE NEGATIVE (NEGATIVE); KETONES,URINE NEGATIVE (NEGATIVE); LEUKOCYTE ESTERASE,URINE NEGATIVE (NEGATIVE); NITRITE,URINE NEGATIVE (NEGATIVE); OCCULT BLOOD,URINE TRACE-INTACT (NEGATIVE); UROBILINOGEN,URINE 0.2 E.U./dL (0.2-1.0)
[2025-02-24 17:45] LABS: AMORPHOUS SEDIMENT,URINE MODERATE /HPF; RBC,URINE 0-5 /HPF; SQUAMOUS EPITHELIAL CELLS,UR OCCASIONAL /HPF; WBC,URINE 0-5 /HPF
[2025-02-24 20:57] VITALS: BP 149/83; PULSE 86
== END 2025-02-24 20:50 | disposition home or self-care (01) ==
LOC: LB.ED 15:09
DX: I48.91 Unspecified atrial fibrillation (principal); I12.9 Hypertensive chronic kidney disease with stage 1 through stage 4 chronic kidney disease, or unspecified chronic kidney disease; N18.9 Chronic kidney disease, unspecified; I25.10 Atherosclerotic heart disease of native coronary artery without angina pectoris; E03.9 Hypothyroidism, unspecified; E66.9 Obesity, unspecified; Z79.899 Other long term (current) drug therapy; Z79.890 Hormone replacement therapy; Z91.040 Latex allergy status; Z91.048 Other nonmedicinal substance allergy status
CPT/HCPCS: 0241U; 36415; 71045; 80053; 81001; 83735; 85025; 93005; 93010; 96361; 96374; 96376; 99284; 99285-25; J1920; J7030

== ENCOUNTER 2025-02-26 08:43 | Inpatient (IN) | payer MEDICARE, BC ==
[2025-02-26 10:20] LABS: BASOPHILS ABSOLUTE AUTO 0.02 K/uL (0.02-0.10); BASOPHILS PERCENT AUTO 0.4 % (0.0-0.5); EOSINOPHILS ABSOLUTE AUTO 0.14 K/uL (0.04-0.40); EOSINOPHILS PERCENT AUTO 2.5 % (1.0-5.0); HEMATOCRIT 36.7 % (37.0-47.0); HEMOGLOBIN 11.2 g/dL (11.5-16.5); LYMPHOCYTES ABSOLUTE AUTO 0.64 K/uL (1.50-4.00); LYMPHOCYTES PERCENT AUTO 11.2 % (20.0-40.0); MEAN CORPUSCULAR HEMOGLOBIN 26.1 pg (27.0-32.0); MEAN CORPUSCULAR HGB CONC 30.5 g/dL (31.0-35.0); MEAN CORPUSCULAR VOLUME 86 fL (76-96); MONOCYTES ABSOLUTE AUTO 0.33 K/uL (0.20-0.80); MONOCYTES PERCENT AUTO 5.8 % (3.0-10.0); NEUTROPHILS ABSOLUTE AUTO 4.56 K/uL (2.00-7.50); NEUTROPHILS PERCENT AUTO 80.1 % (45.0-70.0); PLATELET COUNT,PLT 207 K/uL (150-500); RED BLOOD CELL COUNT 4.29 M/uL (3.80-5.80); RED CELL DISTRIBUTION WIDTH 20.2 % (11.0-16.0); WHITE BLOOD CELL COUNT,WBC 5.7 K/uL (4.0-11.0)
[2025-02-26] MEDS: Sodium Chloride 0.9% 1,000 ML IV SCH ×2 (10:37→11:42)
[2025-02-26 10:43] LABS: A/G RATIO 0.9 (0.8-2.0); ALBUMIN 3.2 g/dL (3.4-5.0); ANION GAP 13.6 mmol/L (5.0-15.0); BILIRUBIN TOTAL 0.3 mg/dL (0.0-1.0); BUN/CREATININE RATIO 10.4 (6-25); CALCIUM 9.9 mg/dL (8.5-10.1); CARBON DIOXIDE,CO2 24.6 mmol/L (21.0-32.0); CREATININE 2.3 mg/dL (0.55-1.02); EST CRCL DRUG DOSING (CG) 15.6 mL/min; POTASSIUM,K 4.2 mmol/L (3.5-5.1); PROTEIN TOTAL,TP 6.7 g/dL (6.4-8.2)
[2025-02-26] MEDS: Calcium Chloride 10% 1 GM/10 ML Syringe IVPUSH ONE (11:15)
[2025-02-26 11:46] LABS: MAGNESIUM 2.1 mg/dL (1.8-2.4); TROPONIN I HIGH SENSITIVITY 23.8 pg/ml (<=60.4)
[2025-02-26 12:02] LABS: APPEARANCE,URINE CLOUDY (CLEAR); BILIRUBIN,URINE MODERATE (NEGATIVE); COLOR,URINE YELLOW; GLUCOSE,URINE NEGATIVE (NEGATIVE); KETONES,URINE TRACE mg/dL (NEGATIVE); PH,URINE 5.5 (5.0-8.0); PROTEIN,URINE >=300 mg/dL (NEGATIVE)
[2025-02-26 12:03] LABS: LEUKOCYTE ESTERASE,URINE SMALL (NEGATIVE); NITRITE,URINE NEGATIVE (NEGATIVE); OCCULT BLOOD,URINE SMALL (NEGATIVE)
[2025-02-26 12:09] LABS: SQUAMOUS EPITHELIAL CELLS,UR FEW /HPF; WBC CLUMPS,URINE FEW /HPF; WBC,URINE 50-75 /HPF
[2025-02-26] MEDS: Furosemide 40 MG/4 ML VIAL IVPUSH ONE (15:19)
[2025-02-26] MEDS ORDERED: Acetaminophen 325 MG Tab PO PRN (16:15)
[2025-02-26] MEDS: Warfarin 2.5 MG Tab PO SCH (18:17)
[2025-02-26] MEDS: Simvastatin 40 MG Tab PO SCH (19:46)
[2025-02-26] MEDS: Melatonin 10 MG Cap PO SCH (19:47)
[2025-02-26] MEDS: Sennosides/Docusate Sodium 50-8.6 MG Tab PO SCH (19:47)
[2025-02-26] MEDS: Pantoprazole 40 MG Delayed-Release Granules 1 Packet PO SCH (19:47)
[2025-02-26] MEDS: Sulfamethoxazole/Trimethoprim 800-160 MG Tab PO ONE (19:47)
[2025-02-26] MEDS: Gabapentin 300 MG Cap PO SCH (19:47)
[2025-02-26] MEDS: Cyclobenzaprine 5 MG Tab PO SCH (19:53)
[2025-02-26] MEDS ORDERED: Non-Formulary Medication 1 Each (Omeprazole [Omeprazole] 20 MG Capsule.Dr) PO SCH (20:00)
[2025-02-27] MEDS: Levothyroxine 88 MCG Tab PO SCH (06:23)
[2025-02-27 08:13] LABS: BASOPHILS ABSOLUTE AUTO 0.01 K/uL (0.02-0.10); BASOPHILS PERCENT AUTO 0.2 % (0.0-0.5); EOSINOPHILS ABSOLUTE AUTO 0.14 K/uL (0.04-0.40); EOSINOPHILS PERCENT AUTO 2.8 % (1.0-5.0); HEMATOCRIT 34.1 % (37.0-47.0); HEMOGLOBIN 10.1 g/dL (11.5-16.5); LYMPHOCYTES PERCENT AUTO 15.8 % (20.0-40.0); MEAN CORPUSCULAR HEMOGLOBIN 25.4 pg (27.0-32.0); MEAN CORPUSCULAR HGB CONC 29.6 g/dL (31.0-35.0); MEAN CORPUSCULAR VOLUME 86 fL (76-96); MEAN PLATELET VOLUME 11.2 fL (6.0-10.0); MONOCYTES ABSOLUTE AUTO 0.47 K/uL (0.20-0.80); MONOCYTES PERCENT AUTO 9.3 % (3.0-10.0); NEUTROPHILS ABSOLUTE AUTO 3.63 K/uL (2.00-7.50); NEUTROPHILS PERCENT AUTO 71.9 % (45.0-70.0); PLATELET COUNT,PLT 180 K/uL (150-500); RED BLOOD CELL COUNT 3.98 M/uL (3.80-5.80); RED CELL DISTRIBUTION WIDTH 20.4 % (11.0-16.0); WHITE BLOOD CELL COUNT,WBC 5.1 K/uL (4.0-11.0)
[2025-02-27] MEDS: Venlafaxine 150 MG Cap.ER PO SCH (08:19)
[2025-02-27] MEDS: Diltiazem 180 MG Cap.CD PO SCH (08:19)
[2025-02-27] MEDS: Furosemide 20 MG Tab PO SCH (08:20)
[2025-02-27] MEDS: Venlafaxine 75 MG Cap.ER PO SCH (08:20)
[2025-02-27] MEDS: Sulfamethoxazole/Trimethoprim 800-160 MG Tab PO SCH (08:21)
[2025-02-27 08:36] LABS: BILIRUBIN TOTAL 0.3 mg/dL (0.0-1.0); BUN/CREATININE RATIO 10.1 (6-25); CALCIUM 9.3 mg/dL (8.5-10.1); CREATININE 2.48 mg/dL (0.55-1.02); EST CRCL DRUG DOSING (CG) 14.47 mL/min; PROTEIN TOTAL,TP 6.1 g/dL (6.4-8.2)
[2025-02-27 08:45] LABS: INR 1.2 (1.0-3.5)
[2025-02-27 08:47] LABS: PROTHROMBIN TIME 12.6 sec (9.0-11.5)
[2025-02-27] MEDS: Pantoprazole 40 MG Tab.CR PO SCH (09:00)
[2025-02-28] MEDS: Calcium Carbonate 500 MG Tab.Chew PO PRN (08:43)
[2025-03-01 08:48] LABS: BASOPHILS ABSOLUTE AUTO 0.02 K/uL (0.02-0.10); BASOPHILS PERCENT AUTO 0.4 % (0.0-0.5); EOSINOPHILS ABSOLUTE AUTO 0.18 K/uL (0.04-0.40); EOSINOPHILS PERCENT AUTO 3.7 % (1.0-5.0); HEMATOCRIT 34.1 % (37.0-47.0); HEMOGLOBIN 10.4 g/dL (11.5-16.5); LYMPHOCYTES ABSOLUTE AUTO 0.65 K/uL (1.50-4.00); LYMPHOCYTES PERCENT AUTO 13.3 % (20.0-40.0); MEAN CORPUSCULAR HGB CONC 30.5 g/dL (31.0-35.0); MEAN CORPUSCULAR VOLUME 85 fL (76-96); MEAN PLATELET VOLUME 11.3 fL (6.0-10.0); MONOCYTES ABSOLUTE AUTO 0.43 K/uL (0.20-0.80); MONOCYTES PERCENT AUTO 8.8 % (3.0-10.0); NEUTROPHILS PERCENT AUTO 73.8 % (45.0-70.0); PLATELET COUNT,PLT 149 K/uL (150-500); WHITE BLOOD CELL COUNT,WBC 4.9 K/uL (4.0-11.0)
[2025-03-01 09:14] LABS: ANION GAP 15.2 mmol/L (5.0-15.0); BUN/CREATININE RATIO 8.1 (6-25); CALCIUM 9.4 mg/dL (8.5-10.1); CARBON DIOXIDE,CO2 23.7 mmol/L (21.0-32.0); CREATININE 2.6 mg/dL (0.55-1.02); EST CRCL DRUG DOSING (CG) 13.8 mL/min; POTASSIUM,K 3.9 mmol/L (3.5-5.1)
[2025-03-01] MEDS: Sodium Chloride 0.9% 1,000 ML IV ONE (10:25)
[2025-03-02 09:00] LABS: BASOPHILS ABSOLUTE AUTO 0.01 K/uL (0.02-0.10); BASOPHILS PERCENT AUTO 0.2 % (0.0-0.5); EOSINOPHILS ABSOLUTE AUTO 0.21 K/uL (0.04-0.40); EOSINOPHILS PERCENT AUTO 3.5 % (1.0-5.0); HEMATOCRIT 33.3 % (37.0-47.0); HEMOGLOBIN 10.1 g/dL (11.5-16.5); LYMPHOCYTES ABSOLUTE AUTO 0.49 K/uL (1.50-4.00); LYMPHOCYTES PERCENT AUTO 8.2 % (20.0-40.0); MEAN CORPUSCULAR HGB CONC 30.3 g/dL (31.0-35.0); MEAN CORPUSCULAR VOLUME 86 fL (76-96); MONOCYTES ABSOLUTE AUTO 0.39 K/uL (0.20-0.80); MONOCYTES PERCENT AUTO 6.5 % (3.0-10.0); NEUTROPHILS ABSOLUTE AUTO 4.88 K/uL (2.00-7.50); NEUTROPHILS PERCENT AUTO 81.6 % (45.0-70.0); PLATELET COUNT,PLT 159 K/uL (150-500); RED BLOOD CELL COUNT 3.88 M/uL (3.80-5.80)
[2025-03-02 10:14] LABS: BUN/CREATININE RATIO 7.9 (6-25); CALCIUM 9.2 mg/dL (8.5-10.1); CARBON DIOXIDE,CO2 23.1 mmol/L (21.0-32.0); CREATININE 2.29 mg/dL (0.55-1.02); EST CRCL DRUG DOSING (CG) 15.67 mL/min; POTASSIUM,K 4.1 mmol/L (3.5-5.1)
[2025-03-02 13:23] VITALS: BP 139/70; PULSE 74
== END 2025-03-02 15:56 | disposition swing bed (61) | DRG 948 ==
LOC: LB.ED 08:43 → LB.MS 13:30
PROVIDERS: ADMIT Surgery; ATTEND Surgery
DX: R53.1 Weakness (principal); Z66 Do not resuscitate; I25.10 Atherosclerotic heart disease of native coronary artery without angina pectoris; I48.91 Unspecified atrial fibrillation; E78.00 Pure hypercholesterolemia, unspecified; I10 Essential (primary) hypertension; E03.9 Hypothyroidism, unspecified; E66.9 Obesity, unspecified; D64.9 Anemia, unspecified; R53.81 Other malaise; Z91.040 Latex allergy status; Z88.8 Allergy status to other drugs, medicaments and biological substances; Z95.5 Presence of coronary angioplasty implant and graft; Z91.048 Other nonmedicinal substance allergy status
CPT/HCPCS: 36415; 70450; 71045; 80048; 80053; 81001; 82947; 83605; 83735; 84484; 85025; 85610; 93005; 93010; 97116-GP; 97162-GP; 97165-GO; 97530-GP; 99223; 99231; 99232; A0425; A0428; A9270-GY; J1756; J1938; J7030; J7050

== ENCOUNTER 2025-03-02 15:22 | Inpatient (IN) | payer MEDICARE, BC ==
[2025-03-02] MEDS ORDERED: Calcium Carbonate 500 MG Tab.Chew PO PRN (16:02)
[2025-03-02] MEDS: Tuberculin, PPD 5 Units/0.1 ML 1 ML MDV IDERM SCH (17:01)
[2025-03-02] MEDS ORDERED: Warfarin 2.5 MG Tab PO SCH (18:00)
[2025-03-02] MEDS: Warfarin 2.5 MG Tab PO SCH (18:02)
[2025-03-02] MEDS: Acetaminophen 325 MG Tab PO PRN (18:02)
[2025-03-02] MEDS: Cyclobenzaprine 10 MG Tab PO SCH (19:10)
[2025-03-02] MEDS: Sennosides/Docusate Sodium 50-8.6 MG Tab PO SCH (19:11)
[2025-03-02] MEDS: Simvastatin 40 MG Tab PO SCH (19:11)
[2025-03-02] MEDS: Gabapentin 300 MG Cap PO SCH (19:11)
[2025-03-02] MEDS: Pantoprazole 40 MG Tab.CR PO SCH (19:12)
[2025-03-02] MEDS: Melatonin 10 MG Cap PO SCH (19:12)
[2025-03-02] MEDS: Sulfamethoxazole/Trimethoprim 800-160 MG Tab PO SCH (20:19)
[2025-03-03] MEDS: Levothyroxine 88 MCG Tab PO SCH (06:20)
[2025-03-03] MEDS: Venlafaxine 150 MG Cap.ER PO SCH (07:28)
[2025-03-03] MEDS: Venlafaxine 75 MG Cap.ER PO SCH (07:28)
[2025-03-03] MEDS: Lactobacillus Acidophilus/Lactobacillus Sporogenes (Probiotic) Tab PO SCH (07:28)
[2025-03-03] MEDS: Diltiazem 180 MG Cap.CD PO SCH (07:28)
[2025-03-03] MEDS: Furosemide 20 MG Tab PO SCH (07:28)
[2025-03-03] MEDS: Pantoprazole 40 MG Tab.CR PO SCH (07:29)
[2025-03-03 10:37] LABS: INR 1.3 (1.0-3.5)
[2025-03-03 10:41] LABS: PROTHROMBIN TIME 13.4 sec (9.0-11.5)
[2025-03-03] MEDS: Sennosides/Docusate Sodium 50-8.6 MG Tab PO PRN (19:48)
[2025-03-04] MEDS: Polyethylene Glycol 3350 Powder 17 GM Packet PO SCH (14:31)
[2025-03-04] MEDS: Bisacodyl 10 MG Supp RECTAL ONE (14:31)
[2025-03-05 12:46] LABS: HEMATOCRIT 32.7 % (37.0-47.0); HEMOGLOBIN 10.1 g/dL (11.5-16.5); MEAN CORPUSCULAR HEMOGLOBIN 26.4 pg (27.0-32.0); MEAN CORPUSCULAR HGB CONC 30.9 g/dL (31.0-35.0); MEAN PLATELET VOLUME 11.4 fL (6.0-10.0); RED BLOOD CELL COUNT 3.83 M/uL (3.80-5.80); RED CELL DISTRIBUTION WIDTH 20.4 % (11.0-16.0); WHITE BLOOD CELL COUNT,WBC 5.8 K/uL (4.0-11.0)
[2025-03-05 12:52] LABS: BUN/CREATININE RATIO 13.1 (6-25); CALCIUM 9.2 mg/dL (8.5-10.1); CARBON DIOXIDE,CO2 24.4 mmol/L (21.0-32.0); CREATININE 1.83 mg/dL (0.55-1.02); EST CRCL DRUG DOSING (CG) 18.75 mL/min
[2025-03-05 12:59] LABS: ANION GAP 12.9 mmol/L (5.0-15.0); POTASSIUM,K 4.3 mmol/L (3.5-5.1)
[2025-03-08 07:54] VITALS: BP 144/74; PULSE 94
[2025-03-08 08:07] LABS: BASOPHILS ABSOLUTE AUTO 0.03 K/uL (0.02-0.10); BASOPHILS PERCENT AUTO 0.5 % (0.0-0.5); EOSINOPHILS ABSOLUTE AUTO 0.25 K/uL (0.04-0.40); EOSINOPHILS PERCENT AUTO 4.4 % (1.0-5.0); HEMATOCRIT 31.2 % (37.0-47.0); HEMOGLOBIN 9.2 g/dL (11.5-16.5); LYMPHOCYTES ABSOLUTE AUTO 0.89 K/uL (1.50-4.00); LYMPHOCYTES PERCENT AUTO 15.8 % (20.0-40.0); MEAN CORPUSCULAR HGB CONC 29.5 g/dL (31.0-35.0); MEAN CORPUSCULAR VOLUME 88 fL (76-96); MEAN PLATELET VOLUME 10.8 fL (6.0-10.0); MONOCYTES ABSOLUTE AUTO 0.39 K/uL (0.20-0.80); MONOCYTES PERCENT AUTO 6.9 % (3.0-10.0); NEUTROPHILS ABSOLUTE AUTO 4.06 K/uL (2.00-7.50); NEUTROPHILS PERCENT AUTO 72.4 % (45.0-70.0); PLATELET COUNT,PLT 225 K/uL (150-500); RED BLOOD CELL COUNT 3.54 M/uL (3.80-5.80); RED CELL DISTRIBUTION WIDTH 21.1 % (11.0-16.0); WHITE BLOOD CELL COUNT,WBC 5.6 K/uL (4.0-11.0)
[2025-03-08 08:34] LABS: ANION GAP 12.9 mmol/L (5.0-15.0); BUN/CREATININE RATIO 14.6 (6-25); CARBON DIOXIDE,CO2 25.4 mmol/L (21.0-32.0); CREATININE 1.85 mg/dL (0.55-1.02); EST CRCL DRUG DOSING (CG) 18.54 mL/min; POTASSIUM,K 4.3 mmol/L (3.5-5.1)
[2025-03-08 11:24] LABS: CALCIUM 9.7 mg/dL (8.5-10.1)
[2025-03-16] MEDS ORDERED: Tuberculin, PPD 5 Units/0.1 ML 1 ML MDV IDERM SCH (16:45)
== END 2025-03-08 13:47 | disposition home or self-care (01) | DRG 948 ==
LOC: LB.MS 15:22 → UNDOADMIN 15:22 → LB.MS 15:56
PROVIDERS: ADMIT Physician Assistant; ATTEND Physician Assistant
DX: R53.81 Other malaise (principal); I48.91 Unspecified atrial fibrillation; I25.10 Atherosclerotic heart disease of native coronary artery without angina pectoris; E78.00 Pure hypercholesterolemia, unspecified; E03.9 Hypothyroidism, unspecified; E66.9 Obesity, unspecified; D64.9 Anemia, unspecified; N18.9 Chronic kidney disease, unspecified; I12.9 Hypertensive chronic kidney disease with stage 1 through stage 4 chronic kidney disease, or unspecified chronic kidney disease; E86.0 Dehydration; Z95.5 Presence of coronary angioplasty implant and graft; Z68.36 Body mass index [BMI] 36.0-36.9, adult; Z79.899 Other long term (current) drug therapy; Z79.01 Long term (current) use of anticoagulants
CPT/HCPCS: 36415; 80048; 85025; 85027; 85610; 86580; 96125-GN; 97116-GP; 97530-GO; 97530-GP; 97535-GO; 99305; 99315; A9270-GY